=== PATIENT | female | born 1960 | race Caucasian/White ===

== ENCOUNTER 2018-05-03 08:13 | Emergency (ER) | payer OTHER ==
--- OUTSIDE RECORDS SUMMARY | 2018-05-03 08:16 | XMS REPORT | Clinical Summary ---
:1960 Author Organization [facility] Address [address] [place] [address] Care Team Providers Name Role Phone Jordy Rosales MD Primary Care Provider Allergies Active Allergy Reactions Severity Noted Date Comments Iodine 08/17/2017 unknown Current Medications Prescription Sig. Disp. Refills Start Date End Date Status metFORMIN Take 500 mg by 3 07/11/2017 Active (GLUCOPHAGE) 500 mg mouth 2 (two) tablet times a day. lamoTRIgine Take 200 mg by Active (LaMICtal) 200 MG mouth daily. tablet FLUoxetine (PROzac) Take 40 mg by Active 40 MG capsule mouth daily. propranolol Take 10 mg by Active (INDERAL) 10 MG mouth 2 (two) tablet times a day. losartan (COZAAR) 25 Take 25 mg by Active MG tablet mouth daily. atorvastatin Take 10 mg by Active (LIPITOR) 10 MG mouth nightly. tablet levothyroxine Take 75 mcg by Active (SYNTHROID, LEVOXYL) mouth every 75 mcg tablet morning. oxybutynin Take 5 mg by Active (DITROPAN) 5 MG mouth nightly. tablet docusate sodium Take 100 mg by Active (COLACE) 100 MG mouth 2 (two) capsule times a day. glimepiride (AMARYL) Take 0.5 mg by Active 1 MG tablet mouth daily before breakfast. oxybutynin Take 10 mg by Active (DITROPAN) 5 MG mouth every tablet morning. estradiol (ESTRACE) Insert 2 g Active 0.01 % (0.1 mg/gram) into the vaginal cream vagina 3 (three) times a week. No Specific Days acetaminophen Take 2 tablets 08/26/2017 (TYLENOL) 325 MG (650 mg total) 8 tablet by mouth every 6 (six) hours as needed for mild pain for up to 30 days. lamoTRIgine Take 1 tablet 30 tablet 0 08/27/2017 (LaMICtal) 200 MG (200 mg total) 8 tabletIndications: by mouth every Schizoaffective morning for 30 disorder, depressive days. type ([facility]) glimepiride (AMARYL) Take 0.5 15 tablet 0 08/27/2017 1 MG tablets (0.5 8 tabletIndications: mg total) by Type 2 diabetes mouth daily mellitus without with breakfast complication, for 30 days. without long-term current use of insulin ([facility]) atorvastatin Take 1 tablet 30 tablet 0 08/26/2017 (LIPITOR) 10 MG (10 mg total) 8 tabletIndications: by mouth Type 2 diabetes nightly for 30 mellitus without days. complication, without long-term current use of insulin ([facility]) losartan (COZAAR) 25 Take 1 tablet 30 tablet 0 08/27/2017 MG (25 mg total) 8 tabletIndications: by mouth daily Hypertension, for 30 days. unspecified type benztropine Take 1 tablet 60 tablet 0 08/26/2017 (COGENTIN) 1 MG (1 mg total) 8 tabletIndications: by mouth 2 Schizoaffective (two) times a disorder, depressive day for 30 type (HCC) days. lurasidone (LATUDA) Take 20 mg by 600 mg 0 08/26/2017 20 mg mouth every 8 tabletIndications: evening for 30 Schizoaffective days. disorder, depressive type ([facility]) haloperidol (HALDOL) Take 1 tablet 30 tablet 0 08/26/2017 10 MG (10 mg total) 8 tabletIndications: by mouth Schizoaffective nightly for 30 disorder, depressive days. type ([facility]) haloperidol (HALDOL) Take 1 tablet 08/26/2017 2 MG tablet (2 mg total) 8 by mouth 2 (two) times a day as needed for agitation for up to 30 days. propranolol Take 1 tablet 60 tablet 0 08/26/2017 (INDERAL) 10 MG (10 mg total) 8 tabletIndications: by mouth 2 Schizoaffective (two) times a disorder, depressive day for 30 type (HCC) days. dexamethasone Take 1 tablet 5 tablet 0 08/27/2017 (DECADRON) 1 MG (1 mg total) 8 tablet by mouth daily for 5 days. insulin lispro Inject 0-7 10 mL 12 08/26/2017 (HumaLOG) 100 Units under 8 unit/mL injection the skin 3 (three) times a day with meals for 30 days. pantoprazole 4 mg/mL Infuse 10 mL 08/27/2017 in sodium chloride (40 mg total) 8 injection into a venous catheter daily before breakfast for 5 days. FLUoxetine (PROzac) Take 1 capsule 30 capsule 0 08/27/2017 20 MG (20 mg total) 8 capsuleIndications: by mouth every Schizoaffective morning for 30 disorder, depressive days. type (HCC) levothyroxine Take 1 tablet 30 tablet 0 08/27/2017 (SYNTHROID, LEVOXYL) (75 mcg total) 8 75 mcg by mouth daily tabletIndications: for 30 days. Hypothyroidism, unspecified type oxybutynin XL Take 1 tablet 30 tablet 0 08/27/2017 (DITROPAN-XL) 10 MG (10 mg total) 8 24 hr by mouth every tabletIndications: morning for 30 Urge incontinence of days. urine oxybutynin XL Take 1 tablet 30 tablet 0 08/26/2017 (DITROPAN-XL) 5 MG (5 mg total) 8 24 hr by mouth tabletIndications: nightly for 30 Urge incontinence of days. urine lurasidone (LATUDA) Take 20 mg by Discontinued 20 mg tablet mouth every 8 evening. haloperidol (HALDOL) Take 10 mg by Discontinued 10 MG tablet mouth every 8 evening. benztropine Take 2 mg by Discontinued (COGENTIN) 2 MG mouth 2 (two) 8 tablet times a day. GLIMEPIRIDE ORAL Take 0.5 mg by Discontinued mouth daily. 8 ibuprofen (ADVIL) Take 100 mg by Discontinued 100 MG tablet mouth every 6 8 (six) hours as needed for mild pain. baclofen (LIORESAL) Take 10 mg by Discontinued 10 MG tablet mouth 2 (two) 8 times a day. haloperidol (HALDOL) Take 4 mg by Discontinued 2 MG tablet mouth every 8 morning. haloperidol (HALDOL) Take 2 mg by Discontinued 2 MG tablet mouth as 8 needed for agitation. sulfamethoxazole-tri Take 1 tablet 6 tablet 0 11/19/2017 methoprim (BACTRIM by mouth 2 8 DS) 800-160 mg per (two) times a tablet day for 3 days. haloperidol (HALDOL) Take 4 mg by Discontinued 2 MG tablet mouth every 8 morning. haloperidol (HALDOL) Take 10 mg by Discontinued 10 MG tablet mouth nightly. 8 acetaminophen Take 2 tablets 12/06/2017 (TYLENOL) 325 MG (650 mg total) 8 tablet by mouth every 6 (six) hours as needed (pain) for up to 30 days. ARIPiprazole Take 1 tablet 60 tablet 0 12/06/2017 (ABILIFY) 10 MG (10 mg total) 8 tablet by mouth 2 (two) times a day for 30 days. acetaminophen-codein Take 1 tablet 12/06/2017 Discontinued e (TYLENOL WITH by mouth every 8 CODEINE #3) 300-30 4 (four) hours mg per tablet as needed (pain) for up to 14 days. cyclobenzaprine Take 1 tablet 12/06/2017 Discontinued (FLEXERIL) 5 mg (5 mg total) 8 tablet by mouth 3 (three) times a day as needed for muscle spasms for up to 14 days. levoFLOXacin Take 1 tablet 12/06/2017 Discontinued (LEVAQUIN) 500 MG (500 mg total) 8 tablet by mouth daily for 7 days. acetaminophen-codein Take 1 tablet 50 tablet 0 12/06/2017 e (TYLENOL WITH by mouth every 8 CODEINE #3) 300-30 4 (four) hours mg per tablet as needed (pain) for up to 14 days. levoFLOXacin Take 1 tablet 7 tablet 0 12/06/2017 (LEVAQUIN) 500 MG (500 mg total) 8 tablet by mouth daily for 7 days. cyclobenzaprine Take 1 tablet 40 tablet 0 12/06/2017 (FLEXERIL) 5 mg (5 mg total) 8 tablet by mouth 3 (three) times a day as needed for muscle spasms for up to 14 days. keTOROlac (TORadol) Take 1 tablet 20 tablet 0 03/20/2018 10 mg tablet (10 mg total) 8 by mouth every 6 (six) hours as needed for moderate pain for up to 5 days. dicyclomine (BENTYL) Take 1 tablet 60 tablet 0 03/20/2018 20 mg tablet (20 mg total) 8 by mouth 2 (two) times a day for 30 days. sennosides-docusate Take 1 tablet 30 tablet 0 03/20/2018 sodium (SENOKOT-S) by mouth daily 8 8.6-50 mg per tablet for 30 days. magnesium citrate Take 1 Bottle 296 mL 0 03/20/2018 solution (296 mL total) 8 by mouth once for 1 dose. Active Problems Problem Noted Date Cervical radiculopathy 12/03/2017 Altered mental status 11/19/2017 Sepsis (HCC) 11/18/2017 Central cord syndrome (HCC) 11/13/2017 Nasal bone fracture 08/19/2017 Injury of cervical spine ([facility]) 08/19/2017 Head injury 08/17/2017 Schizophrenia ([facility]) 08/17/2017 Hyponatremia 08/17/2017 Increased anion gap metabolic acidosis 08/17/2017 Leucocytosis 08/17/2017 Weakness of both upper extremities 08/17/2017 Hypoalbuminemia 08/17/2017 Encounters Date Type Specialty Care Team Description 03/28/2018 Office Visit Orthopedic Surgery Kofi, Adhesive capsulitis Italo Meek MD of right shoulder (Primary Dx) 03/27/2018 Orders Only Orthopedic Surgery Brandno, Right shoulder pain, Nickarr unspecified chronicity (Primary Dx) 03/19/2018 Emergency Emergency Medicine NNAMDI Williamson abdominal pain ( Primary Dx); - Miguel Rice, Drug-induced constipation; 03/20/2018 DO Calculus of gallbladder without cholecystitis without obstruction 01/06/2018 Office Visit Neurosurgery Chris Cabrera, Central cord MD syndrome, subsequent encounter (Primary Dx) 01/06/2018 Hospital Encounter Radiology Chris Cabrera, Cervical MD radiculopathy 12/20/2017 Transcribe Orders Neurosurgery Leufroy-Deandre, Cervical Dorothy, [place] radiculopathy (Primary Dx) 12/03/2017 Hospital Encounter Neurosurgery Chris Cabrera, Depression, unspecified depression type (Primary Dx); - Cervical radiculopathy 12/06/2017 12/03/2017 Anesthesia Event General Surgery Naye Leonard MD 12/03/2017 Procedure Pass General Surgery 12/03/2017 Surgery General Surgery Chris Cabrera, C3-C7 POSTERIOR MD LAMINOPLASTY 11/18/2017 Hospital Encounter Critical Care Zohaib Landeros Sepsis, due to unspecified organism (Primary Dx); - Soco Santiago MD Sepsis due to Escherichia coli 11/19/2017 Nayeli Rodriguez MD 11/13/2017 Pre-Admit Testing Pre-Admission Chris Cabrera, Preop testing Appointment Testing (Primary Dx) 11/13/2017 Hospital Encounter Radiology Chris Cabrera, Preop testing 11/13/2017 Office Visit Neurosurgery Chris Cabrera, Central cord MD syndrome, subsequent encounter (Primary Dx) 11/13/2017 Hospital Encounter Radiology Chris Cabrera Cervical radiculopathy 11/13/2017 Anesthesia Event Pre-Admission Kathy Saravia Testing [facility] 11/07/2017 Transcribe Orders Neurosurgery Leufroy-Deandre, Cervical Dorothy, [place] radiculopathy (Primary Dx) 10/02/2017 Office Visit Neurosurgery Chris Cabrera, Central cord MD syndrome, subsequent encounter (Primary Dx) 08/17/2017 Hospital Encounter General Internal Zohaib Landeros Injury of head , initial encounter (Primary Dx); - Soco Santaigo MD Fall, initial encounter; 08/26/2017 Luly Mandel Acute hyponatremia; MD Fantasma Intracranial bleed; Mai York Schizoaffective disorder, depressive type; MD Collette Type 2 diabetes mellitus without complication, without long-term current use of insulin; Hypertension, unspecified type; Hypothyroidism, unspecified type; Urge incontinence of urine; Schizophrenia, unspecified type 08/17/2017 Procedure Pass General Internal Medicine 08/17/2017 Procedure Pass General Internal Medicine after 05/02/2017 Immunizations Name Dates Previously Given Next Due FLUCELVAX QUAD PF (0.5mL syringe) 08/26/2017 Pneumococcal Conjugate 13-Valent 08/26/2017 Family History Medical History Relation Name Comments Cancer Father Logan Rivera Testicular cancer Cancer Mother Gisela Rivera Lymphoma Diabetes Mother Gisela Rivera Cancer Other DIABETES, HEART PROBLEMS, THYROID TOO LITTLE Relation Name Status Comments Father Logan Rivera Mother Gisela Rivera Other Other Social History Tobacco Use Types Packs/Day Years Used Date Light Tobacco Smoker Cigarettes 0.25 0.5 Started: 03/21/2018 Smokeless Tobacco: Never Used Alcohol Use Drinks/Week oz/Week Comments Yes 1 Standard drinks or equivalent Very occasional Sex Assigned at Date Recorded Not on file Last Filed Vital Signs Vital Sign Reading Time Taken Blood Pressure 120/87 03/20/2018 1:22 AM CDT Pulse 78 03/28/2018 10:30 AM CDT Temperature 36.9 C (98.5 F) 03/19/2018 7:49 PM CDT Respiratory Rate 16 03/20/2018 1:22 AM CDT Oxygen Saturation 100% 03/20/2018 1:22 AM CDT Inhaled Oxygen Concentration - - Weight 65.8 kg (145 lb) 03/28/2018 10:30 AM CDT Height 167.6 cm (5' 6") 03/28/2018 10:30 AM CDT Body Mass Index 23.4 03/28/2018 10:30 AM CDT Plan of Treatment Health Maintenance Due Date Last Done Comments DIABETIC FOOT EXAM 1970 DIABETIC RETINAL EYE EXAM 1970 URINE MICROALBUMIN 1970 CERVICAL CANCER SCREENING 1981 BREAST CANCER SCREENING 2010 COLON CANCER SCREENING 2010 SHINGRIX VACCINE (#1) 2010 INFLUENZA VACCINE 02/26/2018 08/26/2017 Implants Implanted Type Area Suppository Molding Machine Operator Device Expiration Model / Identifier Date Serial / Lot 3mm Drill Shaft Accessories N/A: [employer] [id number] / Implanted: Qty: 1 on 12/03/2017 by Chris Cabrera MD N/A / Leverage Lfs 2.6mm X 8mm Lateral Mass Screw - [id number] IMPLANT N/A: [employer] SPINE [id number] / Implanted: Qty: 6 on 12/03/2017 by Chris Cabrera MD DEVICES N/A / Leverage Lfs 8mm Small Traditional Plate (M-L) - [id number] [id number] IMPLANT N/A: [employer] 07/09/2020 [id number] / Implanted: Qty: 1 on 12/03/2017 by Chris Cabrera MD DEVICES N/A / 1001 Leverage Lfs 8mm Large Laminar Plate (C-C) - [id number] [id number] IMPLANT N/A: [employer] SPINE 07/09/2020 [id number] / Implanted: Qty: 1 on 12/03/2017 by Chris Cabrera MD DEVICES N/A / 1001 Screw Spinal Lmnr 3x5mm Leverage Lfs - [id number] Spinal N/A: [employer] [id number] / Implanted: Qty: 1 on 12/03/2017 by Chris Cabrera MD Implants N/A / Screw Spinal Lmnr 2.6x5mm Leverage Lfs - [id number] Spinal N/A: [employer] [id number] / Implanted: Qty: 4 on 12/03/2017 by Chris Cabrera MD Implants N/A / Plate Spinal Trdtnl Sm 8mm Leverage Lfs - [id number] Spinal N/A: [employer] 07/09/2020 [id number] / Implanted: Qty: 3 on 12/03/2017 by Chris Cabrera MD Implants N/A / 1001 Procedures Procedure Name Priority Date/Time Associated Diagnosis Comments XR SHOULDER 2+ VW Routine 03/28/2018 10:04 Right shoulder pain, Results for this RIGHT AM CDT unspecified procedure are in chronicity the results section. CT ARTHROCENTESIS Routine 03/28/2018 10:00 Adhesive capsulitis Results for this ASPIR&/INJ MAJOR AM CDT of right shoulder procedure are in JT/BURSA W/O US the results section. ECG 12-LEAD STAT 03/20/2018 12:46 Results for this AM CDT procedure are in the results section. CT RENAL STONE STAT 03/20/2018 12:13 Results for this PROTOCOL AM CDT procedure are in the results section. US GALLBLADDER STAT 03/19/2018 11:05 Results for this PM CDT procedure are in the results section. ZZESTIMATED GFR STAT 03/19/2018 8:38 Results for this PM CDT procedure are in the results section. B NATRIURETIC PEPTIDE STAT 03/19/2018 8:38 Results for this PM CDT procedure are in the results section. TROPONIN STAT 03/19/2018 8:38 Results for this PM CDT procedure are in the results section. CREATINE KINASE, TOTAL STAT 03/19/2018 8:38 Results for this (CPK) PM CDT procedure are in the results section. LIPASE LEVEL STAT 03/19/2018 8:38 Results for this PM CDT procedure are in the results section. COMPREHENSIVE STAT 03/19/2018 8:38 Results for this METABOLIC PANEL PM CDT procedure are in the results section. HC COMPLETE BLD COUNT STAT 03/19/2018 8:38 Results for this W/AUTO DIFF PM CDT procedure are in the results section. XR CERVICAL SPINE 2 OR Routine 01/06/2018 2:50 Cervical Results for this 3 VW PM CDT radiculopathy procedure are in the results section. XR CHEST 1 VW PORTABLE STAT 12/05/2017 8:18 Results for this AM CDT procedure are in the results section. URINALYSIS SCREEN AND STAT 12/05/2017 4:26 Results for this MICROSCOPY, WITH AM CDT procedure are in REFLEX TO CULTURE the results section. URINE CULTURE STAT 12/05/2017 4:26 Results for this AM CDT procedure are in the results section. ECG 12-LEAD Routine 12/04/2017 9:32 Results for this PM CDT procedure are in the results section. POC GLUCOSE Routine 12/04/2017 11:49 Results for this AM CDT procedure are in the results section. POC GLUCOSE Routine 12/04/2017 8:10 Results for this AM CDT procedure are in the results section. HC COMPLETE BLD COUNT Routine 12/04/2017 3:41 Results for this W/AUTO DIFF AM CDT procedure are in the results section. ZZESTIMATED GFR Routine 12/04/2017 12:00 Results for this AM CDT procedure are in the results section. BASIC METABOLIC PANEL Routine 12/04/2017 12:00 Results for this AM CDT procedure are in the results section. POC GLUCOSE Routine 12/03/2017 9:20 Results for this PM CDT procedure are in the results section. SURGICAL PATHOLOGY Routine 12/03/2017 1:17 Results for this REQUEST PM CDT procedure are in the results section. POC GLUCOSE Routine 12/03/2017 11:23 Results for this AM CDT procedure are in the results section. OR FL < 1 HOUR Routine 12/03/2017 10:20 Results for this AM CDT procedure are in the results section. XR CERVICAL SPINE 1 VW Routine 12/03/2017 8:30 Results for this AM CDT procedure are in the results section. CT AN ELECTIVE Routine 12/03/2017 7:53 ENDOTRACHEAL AIRWAY AM CDT Procedure Note - Adam Villar - 12/03/2017 7:53 AM CDT Airway Performed by: ADAM VILLAR Authorized by: NAYE LEONARD Location: OR Urgency: Elective Difficult Airway: No Resident/METAL PLATER/AA: ADAM VILLAR Performed by: resident/METAL PLATER/AA Preoxygenated with 100% O2: Yes C-spine Precautions Maintained Throughout: Yes Mask Ventilation: Easy mask Final Airway Type: Endotracheal airway Final Endotracheal Airway: ETT Cuffed: Yes Technique Used: Video laryngoscopy Devices/Methods Used in Placement: Intubating stylet Insertion Site: Oral Blade Type: Arlene Laryngoscope Blade/Videolaryngoscope Blade Size: 3 ETT Size (mm): 7.0 Cuff at minimum occlusion pressure: Yes Measured from: Lips ETT to Lips (cm): 20 Placement Verified by: CO2 detection, direct visualization and equal breath sounds Laryngoscopic view: Grade I - full view of glottis Rapid Sequence Induction (RSI): No Modified RSI: No Number of Attempts at Approach: 1 Neutral spine maintained throughout induction and intubation ARTERIAL LINE Routine 12/03/2017 7:31 AM CDT Procedure Note - Adam Villar - 12/03/2017 7:31 AM CDT Arterial line Performed by: ADAM VILLAR Authorized by: ADAM VILLAR Patient Location: OR Start Time: 12/03/2017 7:25 AM End Time: 12/03/2017 7:27 AM Staff: Anesthesiologist: NAYE LEONARD Pre-procedure: patient identified, IV checked, site and side verified, risks and benefits discussed, procedure verified, surgical consent complete, patient position confirmed, monitors and equipment checked and pre-op evaluation complete MSBT: antiseptic used and hand hygiene performed TIme Out Performed: 12/03/2017 7:18 AM Indications: Indications: hemodynamic monitoring Anesthesia: Anesthesia: General Procedure Details: Arterial Line placement: Placed post induction Line placement site: Radial Line placement side: Right Arterial line gauge: 20 G Number of attempts: 1 Ultrasound guidance used: No Post-procedure: Post-procedure: Sterile dressing applied Post procedure circulation, sensation, movement: Unchanged Patient tolerance: Patient tolerated the procedure well with no immediate complications LAMINECTOMY, CERVICAL, POSTERIOR 12/03/2017 7:15 AM CDT Cervical radiculopathy APPROACH Case Notes REQ 0715 START; EST 2HRS, ÁNGEL TABLE, STEALTH S7 OARM, NUVASIVE LAMINOPLASTY Special Needs REQ 0715 START; EST 2HRS, ÁNGEL TABLE, STEALTH S7 O-ARM, NUVASIVE LAMINOPLASTY POC GLUCOSE Routine 12/03/2017 6:58 Results for this AM CDT procedure are in the results section. PARATHYROID HORMONE STAT 12/03/2017 6:50 Results for this AM CDT procedure are in the results section. TYPE AND SCREEN STAT 12/03/2017 6:50 Results for this AM CDT procedure are in the results section. POC GLUCOSE Routine 11/19/2017 4:52 Results for this PM CDT procedure are in the results section. POC GLUCOSE Routine 11/19/2017 8:47 Results for this AM CDT procedure are in the results section. ZZESTIMATED GFR Routine 11/19/2017 4:00 Results for this AM CDT procedure are in the results section. IONIZED CALCIUM Routine 11/19/2017 4:00 Results for this AM CDT procedure are in the results section. BASIC METABOLIC PANEL Routine 11/19/2017 4:00 Results for this AM CDT procedure are in the results section. HC COMPLETE BLD COUNT Routine 11/19/2017 4:00 Results for this W/AUTO DIFF AM CDT procedure are in the results section. POC GLUCOSE Routine 11/18/2017 10:56 Results for this PM CDT procedure are in the results section. POC GLUCOSE Routine 11/18/2017 7:46 Results for this PM CDT procedure are in the results section. CONSULT TO SEPSIS Routine 11/18/2017 4:13 Sepsis due to Results for this RESPONSE TEAM PM CDT Escherichia coli procedure are in the results section. ZZESTIMATED GFR Routine 11/18/2017 4:07 Results for this PM CDT procedure are in the results section. BASIC METABOLIC PANEL Routine 11/18/2017 4:07 Results for this PM CDT procedure are in the results section. EEG AWAKE/DROWSY LESS Routine 11/18/2017 12:45 Results for this THAN 41 MIN PM CDT procedure are in the results section. RESPIRATORY PATHOGEN Routine 11/18/2017 12:32 Results for this PANEL PM CDT procedure are in the results section. BETA HYDROXYBUTYRATE Routine 11/18/2017 11:39 Results for this AM CDT procedure are in the results section. VITAMIN D 25 HYDROXY Routine 11/18/2017 11:39 Results for this LEVEL AM CDT procedure are in the results section. FOLATE LEVEL Routine 11/18/2017 11:39 Results for this AM CDT procedure are in the results section. HIV 1, 2 ANTIBODY Routine 11/18/2017 11:39 Results for this AM CDT procedure are in the results section. VITAMIN B1 LEVEL, WHOLE Routine 11/18/2017 11:39 Results for this BLOOD AM CDT procedure are in the results section. VITAMIN B12 LEVEL Routine 11/18/2017 11:39 Results for this AM CDT procedure are in the results section. BASIC METABOLIC PANEL Routine 11/18/2017 10:30 Results for this AM CDT procedure are in the results section. ZZESTIMATED GFR Routine 11/18/2017 10:30 Results for this AM CDT procedure are in the results section. CREATINE KINASE, TOTAL Routine 11/18/2017 10:30 Results for this (CPK) AM CDT procedure are in the results section. TROPONIN Timed 11/18/2017 10:09 Results for this AM CDT procedure are in the results section. LACTIC ACID LEVEL, Timed 11/18/2017 10:09 Results for this SEPSIS - NOW AND REPEAT AM CDT procedure are in 2X EVERY 3 HOURS the results section. ARTERIAL BLOOD GAS STAT 11/18/2017 10:09 Results for this AM CDT procedure are in the results section. CT HEAD WO CONTRAST STAT 11/18/2017 9:26 Results for this AM CDT procedure are in the results section. XR ABDOMEN 1 VW STAT 11/18/2017 8:54 Results for this AM CDT procedure are in the results section. URINALYSIS SCREEN AND STAT 11/18/2017 8:26 Results for this MICROSCOPY, WITH REFLEX AM CDT procedure are in TO CULTURE the results section. URINE DRUGS OF ABUSE STAT 11/18/2017 8:26 Results for this SCREEN AM CDT procedure are in the results section. GRAM STAIN STAT 11/18/2017 8:26 Results for this AM CDT procedure are in the results section. URINE CULTURE STAT 11/18/2017 8:26 Results for this AM CDT procedure are in the results section. BLOOD CULTURE, AEROBIC Routine 11/18/2017 8:06 Results for this & ANAEROBIC AM CDT procedure are in the results section. BLOOD CULTURE, AEROBIC Routine 11/18/2017 8:06 Results for this & ANAEROBIC AM CDT procedure are in the results section. XR CHEST 1 VW PORTABLE STAT 11/18/2017 7:37 Results for this AM CDT procedure are in the results section. ECG 12-LEAD STAT 11/18/2017 6:48 Results for this AM CDT procedure are in the results section. CT CRITICAL CARE, E/M Routine 11/18/2017 6:42 Results for this 30-74 MINUTES AM CDT procedure are in the results section. C-REACTIVE PROTEIN STAT 11/18/2017 6:32 Results for this AM CDT procedure are in the results section. SEDIMENTATION RATE STAT 11/18/2017 6:32 Results for this AM CDT procedure are in the results section. HEMOGLOBIN A1C STAT 11/18/2017 6:32 Results for this AM CDT procedure are in the results section. ZZESTIMATED GFR STAT 11/18/2017 6:32 Results for this AM CDT procedure are in the results section. SALICYLATE LEVEL STAT 11/18/2017 6:32 Results for this AM CDT procedure are in the results section. ACETAMINOPHEN LEVEL STAT 11/18/2017 6:32 Results for this AM CDT procedure are in the results section. ALCOHOL LEVEL, BLOOD STAT 11/18/2017 6:32 Results for this AM CDT procedure are in the results section. T4, FREE STAT 11/18/2017 6:32 Results for this AM CDT procedure are in the results section. THYROID STIMULATING STAT 11/18/2017 6:32 Results for this HORMONE AM CDT procedure are in the results section. B NATRIURETIC PEPTIDE STAT 11/18/2017 6:32 Results for this AM CDT procedure are in the results section. TROPONIN STAT 11/18/2017 6:32 Results for this AM CDT procedure are in the results section. COMPREHENSIVE METABOLIC STAT 11/18/2017 6:32 Results for this PANEL AM CDT procedure are in the results section. LACTIC ACID LEVEL, STAT 11/18/2017 6:32 Results for this SEPSIS - NOW AND REPEAT AM CDT procedure are in 2X EVERY 3 HOURS the results section. PARTIAL THROMBOPLASTIN STAT 11/18/2017 6:32 Results for this TIME (PTT) AM CDT procedure are in the results section. PROTHROMBIN TIME WITH STAT 11/18/2017 6:32 Results for this INR AM CDT procedure are in the results section. CBC WITH PLATELET AND STAT 11/18/2017 6:32 Results for this DIFFERENTIAL AM CDT procedure are in the results section. POC GLUCOSE Routine 11/18/2017 6:25 Results for this AM CDT procedure are in the results section. XR CHEST 2 VW Routine 11/13/2017 1:31 Preop testing Results for this PM CDT procedure are in the results section. AST (SGOT) Routine 11/13/2017 11:50 Results for this AM CDT procedure are in the results section. BILIRUBIN DIRECT Routine 11/13/2017 11:50 Results for this AM CDT procedure are in the results section. POTASSIUM LEVEL Routine 11/13/2017 11:50 Results for this AM CDT procedure are in the results section. ECG PRE/POST OP Routine 11/13/2017 11:33 Preop testing Results for this AM CDT procedure are in the results section. ZZESTIMATED GFR Routine 11/13/2017 11:27 Results for this AM CDT procedure are in the results section. HEMOGLOBIN A1C Routine 11/13/2017 11:27 Preop testing Results for this AM CDT procedure are in the results section. TYPE AND SCREEN Routine 11/13/2017 11:27 Preop testing Results for this AM CDT procedure are in the results section. VITAMIN D 25 HYDROXY Routine 11/13/2017 11:27 Preop testing Results for this LEVEL AM CDT procedure are in the results section. URINALYSIS SCREEN AND Routine 11/13/2017 11:27 Preop testing Results for this MICROSCOPY, WITH REFLEX AM CDT procedure are in TO CULTURE the results section. HEPATIC FUNCTION PANEL Routine 11/13/2017 11:27 Preop testing Results for this AM CDT procedure are in the results section. PARTIAL THROMBOPLASTIN Routine 11/13/2017 11:27 Preop testing Results for this TIME (PTT) AM CDT procedure are in the results section. PROTHROMBIN TIME WITH Routine 11/13/2017 11:27 Preop testing Results for this INR AM CDT procedure are in the results section. BASIC METABOLIC PANEL Routine 11/13/2017 11:27 Preop testing Results for this AM CDT procedure are in the results section. PHOSPHORUS LEVEL Routine 11/13/2017 11:27 Preop testing Results for this AM CDT procedure are in the results section. MAGNESIUM LEVEL Routine 11/13/2017 11:27 Preop testing Results for this AM CDT procedure are in the results section. GRAM STAIN Routine 11/13/2017 11:27 Results for this AM CDT procedure are in the results section. URINE CULTURE Routine 11/13/2017 11:27 Results for this AM CDT procedure are in the results section. XR CERVICAL SPINE AP Routine 11/13/2017 8:58 Cervical Results for this LATERAL FLEXION AND AM CDT radiculopathy procedure are in EXTENSION the results section. POC GLUCOSE Routine 08/26/2017 4:59 Results for this PM [employer]ER [employer]PER[employer] procedure are in the results section. POC GLUCOSE Routine 08/26/2017 12:19 Results for this PM [employer] DRIER OPERATOR procedure are in the results section. POC GLUCOSE Routine 08/26/2017 8:30 Results for this AM [employer]ER OPER[employer] procedure are in the results section. POC GLUCOSE Routine 08/26/2017 4:59 Results for this AM [employer]RIER OPER[employer] procedure are in the results section. HC COMPLETE BLD COUNT Routine 08/26/2017 4:50 Results for this W/AUTO DIFF AM [employer]ER OPER[employer] procedure are in the results section. ZZESTIMATED GFR Routine 08/26/2017 4:00 Results for this AM [employer]ER OPER[employer] procedure are in the results section. BASIC METABOLIC PANEL Routine 08/26/2017 4:00 Results for this AM [employer]ER OPER[employer] procedure are in the results section. POC GLUCOSE Routine 08/26/2017 1:02 Results for this AM [employer]RIER OPER[employer] procedure are in the results section. POC GLUCOSE Routine 08/25/2017 9:24 Results for this PM [employer] DRIER OPERATOR procedure are in the results section. POC GLUCOSE Routine 08/25/2017 5:30 Results for this PM [employer] DRIER OPERATOR procedure are in the results section. POC GLUCOSE Routine 08/25/2017 12:24 Results for this PM [employer] DRIER OPERATOR procedure are in the results section. POC GLUCOSE Routine 08/25/2017 10:06 Results for this AM [employer]RIER OPER[employer] procedure are in the results section. POC GLUCOSE Routine 08/25/2017 8:38 Results for this AM [employer] DRIER OPER[employer] procedure are in the results section. HC COMPLETE BLD COUNT Routine 08/25/2017 5:00 Results for this W/AUTO DIFF AM [employer]ER OPERATOR procedure are in the results section. ZZESTIMATED GFR Routine 08/25/2017 4:00 Results for this AM [employer] DRIER OPER[employer] procedure are in the results section. BASIC METABOLIC PANEL Routine 08/25/2017 4:00 Results for this AM [employer]RIER OPER[employer] procedure are in the results section. POC GLUCOSE Routine 08/24/2017 7:02 Results for this PM [employer]ER OPER[employer] procedure are in the results section. POC GLUCOSE Routine 08/24/2017 5:18 Results for this PM [employer] DRIER OPERATOR procedure are in the results section. POC GLUCOSE Routine 08/24/2017 11:41 Results for this AM [employer] DRIER OPERATOR procedure are in the results section. POC GLUCOSE Routine 08/24/2017 7:38 Results for this AM [employer] DRIER OPERATOR procedure are in the results section. ZZESTIMATED GFR Routine 08/24/2017 4:05 Results for this AM [employer] DRIER OPERATOR procedure are in the results section. HC COMPLETE BLD COUNT Routine 08/24/2017 4:05 Results for this W/AUTO DIFF AM [employer] D[employer]ER OPERATOR procedure are in the results section. BASIC METABOLIC PANEL Routine 08/24/2017 4:05 Results for this AM [employer]ER OPER[employer] procedure are in the results section. POC GLUCOSE Routine 08/23/2017 8:56 Results for this PM [employer]RIER OPERATOR procedure are in the results section. POC GLUCOSE Routine 08/23/2017 5:37 Results for this PM [employer] DRIER OPERATOR procedure are in the results section. POC GLUCOSE Routine 08/23/2017 1:17 Results for this PM [employer] DRIER OPERATOR procedure are in the results section. POC GLUCOSE Routine 08/23/2017 9:37 Results for this AM [employer] DRIER OPERATOR procedure are in the results section. ZZESTIMATED GFR Routine 08/23/2017 5:13 Results for this AM [employer] DRIER OPERATOR procedure are in the results section. BASIC METABOLIC PANEL Routine 08/23/2017 5:13 Results for this AM [employer] DRIER OPER[employer] procedure are in the results section. HC COMPLETE BLD COUNT Routine 08/23/2017 5:13 Results for this W/AUTO DIFF AM [employer] DRIER OPERATOR procedure are in the results section. POC GLUCOSE Routine 08/22/2017 8:24 Results for this PM [employer] DRIER OPERATOR procedure are in the results section. POC GLUCOSE Routine 08/22/2017 4:53 Results for this PM [employer] DRIER OPERATOR procedure are in the results section. POC GLUCOSE Routine 08/22/2017 12:57 Results for this PM [employer]ACUUM DRIER OPERATOR procedure are in the results section. POC GLUCOSE Routine 08/22/2017 8:01 Results for this AM [employer] DRIER OPERATOR procedure are in the results section. POC GLUCOSE Routine 08/22/2017 6:05 Results for this AM [employer] DRIER OPERATOR procedure are in the results section. HC COMPLETE BLD COUNT Routine 08/22/2017 5:05 Results for this W/AUTO DIFF AM [employer] DRIER OPERATOR procedure are in the results section. ZZESTIMATED GFR Routine 08/22/2017 4:00 Results for this AM [employer] DRIER OPERATOR procedure are in the results section. BASIC METABOLIC PANEL Routine 08/22/2017 4:00 Results for this AM [employer]RIER OPERATOR procedure are in the results section. POC GLUCOSE Routine 08/21/2017 8:57 Results for this PM [employer]RIER OPERATOR procedure are in the results section. POC GLUCOSE Routine 08/21/2017 6:11 Results for this PM [employer] DRIER OPERATOR procedure are in the results section. POC GLUCOSE Routine 08/21/2017 1:29 Results for this PM [employer] DRIER OPERATOR procedure are in the results section. CT MAXILLOFACIAL WO Routine 08/21/2017 1:06 Results for this CONTRAST PM [employer]ER OPERATOR procedure are in the results section. POC GLUCOSE Routine 08/21/2017 8:13 Results for this AM [employer] DRIER OPERATOR procedure are in the results section. HC COMPLETE BLD COUNT Routine 08/21/2017 4:49 Results for this W/AUTO DIFF AM [employer] DRIER OPERATOR procedure are in the results section. ZZESTIMATED GFR Routine 08/21/2017 4:00 Results for this AM [employer] DRIER OPERATOR procedure are in the results section. BASIC METABOLIC PANEL Routine 08/21/2017 4:00 Results for this AM [employer]RIER OPERATOR procedure are in the results section. POC GLUCOSE Routine 08/20/2017 9:59 Results for this PM [employer] DRIER OPERATOR procedure are in the results section. POC GLUCOSE Routine 08/20/2017 5:13 Results for this PM [employer] DRIER OPERATOR procedure are in the results section. POC GLUCOSE Routine 08/20/2017 11:33 Results for this AM [employer] DRIER OPERATOR procedure are in the results section. POC GLUCOSE Routine 08/20/2017 9:35 Results for this AM [employer] DRIER OPERATOR procedure are in the results section. HC COMPLETE BLD COUNT Routine 08/20/2017 4:25 Results for this W/AUTO DIFF AM [employer] DRIER OPERATOR procedure are in the results section. ZZESTIMATED GFR Routine 08/20/2017 4:00 Results for this AM [employer] DRIER OPERATOR procedure are in the results section. BASIC METABOLIC PANEL Routine 08/20/2017 4:00 Results for this AM [employer] DRIER OPERATOR procedure are in the results section. POC GLUCOSE Routine 08/19/2017 10:51 Results for this PM [employer] DRIER OPERATOR procedure are in the results section. XR CERVICAL SPINE 1 VW Routine 08/19/2017 8:58 Results for this PM [employer]RIER OPERATOR procedure are in the results section. POC GLUCOSE Routine 08/19/2017 5:51 Results for this PM [employer] DRIER OPERATOR procedure are in the results section. OSMOLALITY, URINE Routine 08/19/2017 4:29 Results for this PM [employer] DRIER OPERATOR procedure are in the results section. CREATININE LEVEL, Routine 08/19/2017 4:29 Results for this URINE, RANDOM PM [employer] DRIER OPERATOR procedure are in the results section. SODIUM LEVEL, URINE, Routine 08/19/2017 4:29 Results for this RANDOM PM [employer] DRIER OPERATOR procedure are in the results section. POC GLUCOSE Routine 08/19/2017 12:15 Results for this PM [employer] DRIER OPERATOR procedure are in the results section. CT CRITICAL CARE, E/M Routine 08/19/2017 7:16 Results for this 30-74 MINUTES AM [employer] D[employer]ER OPERATOR procedure are in the results section. HC COMPLETE BLD COUNT Routine 08/19/2017 4:58 Results for this W/AUTO DIFF AM [employer] DRIER OPERATOR procedure are in the results section. ZZESTIMATED GFR Routine 08/19/2017 4:00 Results for this AM [employer] DRIER OPERATOR procedure are in the results section. BASIC METABOLIC PANEL Routine 08/19/2017 4:00 Results for this AM [employer]RIER OPERATOR procedure are in the results section. MRI CERVICAL SPINE WO STAT 08/18/2017 1:51 Results for this CONTRAST PM [employer] DRIER OPERATOR procedure are in the results section. MRI BRAIN WO CONTRAST Routine 08/18/2017 1:29 Results for this PM [employer] DRIER OPERATOR procedure are in the results section. HC COMPLETE BLD COUNT Routine 08/18/2017 4:55 Results for this W/AUTO DIFF AM [employer] DRIER OPERATOR procedure are in the results section. HEMOGLOBIN A1C Routine 08/18/2017 4:55 Results for this AM [employer] DRIER OPERATOR procedure are in the results section. ZZESTIMATED GFR Routine 08/18/2017 4:00 Results for this AM [employer] DRIER OPERATOR procedure are in the results section. THYROID STIMULATING Routine 08/18/2017 4:00 Results for this HORMONE AM [employer] DRIER OPERATOR procedure are in the results section. BASIC METABOLIC PANEL Routine 08/18/2017 4:00 Results for this AM [employer] DRIER OPERATOR procedure are in the results section. BLOOD CULTURE, AEROBIC Routine 08/18/2017 12:10 Results for this & ANAEROBIC AM [employer] DRIER OPERATOR procedure are in the results section. MAGNESIUM LEVEL STAT 08/18/2017 12:09 Results for this AM [employer] DRIER OPERATOR procedure are in the results section. PHOSPHORUS LEVEL STAT 08/18/2017 12:09 Results for this AM [employer] DRIER OPERATOR procedure are in the results section. LACTIC ACID LEVEL STAT 08/18/2017 12:09 Results for this AM [employer]UUM DRIER OPERATOR procedure are in the results section. XR CHEST 1 VW PORTABLE STAT 08/17/2017 11:44 Results for this PM [employer] DRIER OPERATOR procedure are in the results section. URINALYSIS SCREEN AND Routine 08/17/2017 8:05 Results for this MICROSCOPY, WITH REFLEX PM [employer]UUM DRIER OPERATOR procedure are in TO CULTURE the results section. URINE CULTURE Routine 08/17/2017 8:00 Results for this PM [employer]UUM DRIER OPERATOR procedure are in the results section. BLOOD CULTURE, AEROBIC Routine 08/17/2017 6:25 Results for this & ANAEROBIC PM [employer] DRIER OPERATOR procedure are in the results section. XR SHOULDER 2+ VW LEFT STAT 08/17/2017 5:08 Results for this PM [employer] DRIER OPERATOR procedure are in the results section. XR SHOULDER 2+ VW RIGHT STAT 08/17/2017 5:07 Results for this PM [employer] DRIER OPERATOR procedure are in the results section. CT CERVICAL SPINE WO STAT 08/17/2017 3:35 Results for this CONTRAST PM [employer] DRIER OPERATOR procedure are in the results section. CT HEAD WO CONTRAST STAT 08/17/2017 3:30 Results for this PM [employer]UUM DRIER OPERATOR procedure are in the results section. ZZESTIMATED GFR STAT 08/17/2017 1:20 Results for this PM [employer]UUM DRIER OPERATOR procedure are in the results section. MAGNESIUM LEVEL STAT 08/17/2017 1:20 Results for this PM [employer]ACUUM DRIER OPERATOR procedure are in the results section. PHOSPHORUS LEVEL STAT 08/17/2017 1:20 Results for this PM [employer]UUM DRIER OPERATOR procedure are in the results section. COMPREHENSIVE METABOLIC STAT 08/17/2017 1:20 Results for this PANEL PM V[employer]UUM DRIER OPERATOR procedure are in the results section. HC COMPLETE BLD COUNT STAT 08/17/2017 1:20 Results for this W/AUTO DIFF PM [employer] DRIER OPERATOR procedure are in the results section. ECG 12-LEAD STAT 08/17/2017 12:01 Results for this PM [employer] DRIER OPERATOR procedure are in the results section. after 05/02/2017 Results XR Shoulder 2+ Vw Right (03/28/2018 10:04 AM)Only the most recent of2 resultswithin the time period is included. Narrative Performed At Four views (true AP, axillary, outlet, and Zanca views) of the rightright [facility] shoulder are obtained and reviewed today.The glenohumeral and AC joints appear normal.There is no evidence of dislocation, fracture, or significant degenerative change. No abnormal soft tissue calcifications are seen. Performing Organization Address [facility] Cent[facility]ode Phone Number [facility] [address] [place] [address] Large Joint Arthrocentesis (03/28/2018 10:00 AM) Narrative Performed At Italo Kirby MD 03/28/2018 11:00 AM Large Joint Arthrocentesis Consent given by: patient Site marked: site marked Timeout: Immediately prior to procedure a time out was called to verify the correct patient, procedure, equipment, support director and site/side marked as required Supporting Documentation Indications: pain Procedure Details Preparation: Patient was prepped and draped in the usual sterile fashion Ultrasound guided: no Location: shoulder - R glenohumeral Right side: Needle size: 22 G Approach: posterior Right shoulder medications administered: 80 mg methylPREDNISolone acetate 80 mg/mL; 10 mL lidocaine 10 mg/mL (1 %); 2 mL bupivacaine 0.5 % (5 mg/mL) Patient tolerance: patient tolerated the procedure well with no immediate complications ECG 12 lead (03/20/2018 12:46 AM)Only the most recent of4 resultswithin the time period is included. Ventricular rate 112 [facility] Atrial rate [address] [facility] interval 148 [facility] QRSD interval 80 [facility] QT interval 336 [facility] QTC interval 458 [facility] P axis 1 70 [facility] QRS axis 1 -18 [facility] T wave axis 48 [facility] EKG impression Sinus tachycardia-Minimal voltage criteria for LVH, may be normal variant-Junctional ST depression, probably normal-Borderline ECG-In automated comparison with ECG of 04-DEC-2017 21:32,-No significant c [facility] hange was found- Performing Organization Address [facility] Centercowy Phone Number [facility] M[facility] [address] [place] [address] CT Renal Stone Protocol (03/20/2018 12:13 AM) Narrative Performed At Examination:CT RENAL STONE PROTOCOL [facility] Clinical History: RUQ abd painanemia Comparison: None. Findings: CT scans are performed using radiation dose reduction techniques.Technical factors are evaluated and adjusted to ensure appropriate moderation of exposure.Automated dose management technology is applied to adjust radiation exposure while achieving a diagnostic quality image. CT scan of abdomen and pelvis was performed without intravenous contrast. The liver, spleen, pancreas, and adrenal glands are unremarkable. Gallstones are noted in the gallbladder. No gallbladder wall thickening is seen. The kidneys are within normal limits without hydronephrosis or urinary calculus. Large amount fecal material seen throughout the colon. No bowel thickening or fat stranding is seen. No bowel dilatation is seen. The appendix is not visualized. No free air or fluid is seen. Urinary bladder is unremarkable. Visualized lung bases are clear. IMPRESSION: 1. Large amount fecal material throughout the colon but no evidence for bowel obstruction. This may represent constipation. 2. Otherwise no acute abnormality identified in abdomen or pelvis. [facility]-[id number] Procedure Note Interface, Radiology Results Incoming - 03/20/2018 12:24 AM CDT Examination: CT RENAL STONE PROTOCOL Clinical History: RUQ abd pain anemia Comparison: None. Findings: CT scans are performed using radiation dose reduction techniques. Technical factors are evaluated and adjusted to ensure appropriate moderation of exposure. Automated dose management technology is applied to adjust radiation exposure while achieving a diagnostic quality image. CT scan of abdomen and pelvis was performed without intravenous contrast. The liver, spleen, pancreas, and adrenal glands are unremarkable. Gallstones are noted in the gallbladder. No gallbladder wall thickening is seen. The kidneys are within normal limits without hydronephrosis or urinary calculus. Large amount fecal material seen throughout the colon. No bowel thickening or fat stranding is seen. No bowel dilatation is seen. The appendix is not visualized. No free air or fluid is seen. Urinary bladder is unremarkable. Visualized lung bases are clear. IMPRESSION: 1. Large amount fecal material throughout the colon but no evidence for bowel obstruction. This may represent constipation. 2. Otherwise no acute abnormality identified in abdomen or pelvis. [facility]-[id number] Performing Organization Address City/State/Zipcode Phone Number [facility] [address] [place] [address] US Gallbladder (03/19/2018 11:05 PM) Narrative Performed At Examination:US GALLBLADDER [facility] Clinical History: Cholelithiasis Comparison: None. Findings: Gallbladder ultrasound was performed. Gallstones are noted in the gallbladder. Gallbladder wall is not thickened. The common bile duct measures 0.5 cm The portal vein is patent. The technologist reported a positive sonographic Solo sign. IMPRESSION: 1. Cholelithiasis but without gallbladder wall thickening. The technologist reported a positive sonographic Solo sign. Cholecystitis cannot be excluded. [facility]-[id number] Procedure Note Hm Interface, Radiology Results Incoming - 03/19/2018 11:20 PM CDT Examination: US GALLBLADDER Clinical History: Cholelithiasis Comparison: None. Findings: Gallbladder ultrasound was performed. Gallstones are noted in the gallbladder. Gallbladder wall is not thickened. The common bile duct measures 0.5 cm The portal vein is patent. The technologist reported a positive sonographic Solo sign. IMPRESSION: 1. Cholelithiasis but without gallbladder wall thickening. The technologist reported a positive sonographic Solo sign. Cholecystitis cannot be excluded. [facility]-[id number] Performing Organization Address City/[facility]/Zipcode Phone Number [facility] [address] [place] [address] Estimated GFR (03/19/2018 8:38 PM)Only the most recent of17 resultswithin the time period is included. GFR Non Af Amer 64 mL/min/1.[address] [facility] DEPARTMENT OF PATHOLOGY AND GENOMIC MEDICINE GFR Af Amer 78 mL/min/1.[address] [facility] DEPARTMENT OF Comment: PATHOLOGY AND GENOMIC Chronic kidney disease: <60 mL/min/1.73m2 MEDICINE Kidney failure: <15 mL/min/1.73m2 The estimated GFR is calculated from the IDMS-traceable Modification of Diet in Renal Disease Equation. The accuracy of the calculation is poor when the creatinine is normal. Calculated values >90 mL/min/1.73m2 are not reported. This equation has not been validated in children (<18 years), women, the elderly (>70 years), or ethnic groups other than Caucasians and Americans. Specimen Plasma specimen Performing Organization Address City/State/Zipcode Phone Number [facility] DEPARTMENT OF PATHOLOGY AND [address] [place] [phone] [facility] MEDICINE Troponin (03/19/2018 8:38 PM)Only the most recent of3 resultswithin the time period is included. Troponin <0.30 0.00 - 0.30 ng/mL [facility] DEPARTMENT OF PATHOLOGY Comment: AND GENOMIC MEDICINE 0.30 - 1.49 ng/mlMay indicate increased risk of acute coronary syndrome. >=1.5 ng/mlConsistent with acute myocardial infarction. The diagnostic value of a single normal or non-diagnostic result is questionable.Serial samples at 2-6 hour intervals are required to rule out acute myocardial injury. Specimen Plasma specimen Performing Organization Address City/State/Zipcode Phone Number [facility] DEPARTMENT OF PATHOLOGY AND [address] [place] [address] GENOMIC MEDICINE CBC with platelet and differential (03/19/2018 8:38 PM)Only the most recent of14 resultswithin the time period is included. WBC 11.00 4.50 - 11.00 k/uL [facility] DEPARTMENT OF PATHOLOGY AND GENOMIC MEDICINE RBC 3.35 (L) 4.20 - 5.50 m/uL [facility] DEPARTMENT OF PATHOLOGY AND GENOMIC MEDICINE HGB 8.5 (L) 12.0 - 16.0 g/dL [facility] DEPARTMENT OF PATHOLOGY AND GENOMIC MEDICINE HCT 26.9 (L) 37.0 - 47.0 % [facility] DEPARTMENT OF PATHOLOGY AND GENOMIC MEDICINE MCV 80.3 (L) 82.0 - 100.[address] [facility] DEPARTMENT OF PATHOLOGY AND GENOMIC MEDICINE MCH 25.4 (L) 27.0 - 34.[address] [facility] DEPARTMENT OF PATHOLOGY AND GENOMIC MEDICINE MCHC 31.6 31.0 - 37.0 g/dL [facility] DEPARTMENT OF PATHOLOGY AND GENOMIC MEDICINE RDW - SD 42.6 37.0 - 55.[address] [facility] DEPARTMENT OF PATHOLOGY AND GENOMIC MEDICINE MPV 9.4 8.8 - 13.[address] [facility] DEPARTMENT OF PATHOLOGY AND GENOMIC MEDICINE Platelet count 471 (H) 150 - 400 k/uL [facility] DEPARTMENT OF PATHOLOGY AND GENOMIC MEDICINE Nucleated RBC 0.00 /[address] [facility] DEPARTMENT OF PATHOLOGY AND GENOMIC MEDICINE Neutrophils 61.2 39.0 - 69.0 % [facility] DEPARTMENT OF PATHOLOGY AND GENOMIC MEDICINE Lymphocytes 26.3 25.0 - 45.0 % [facility] DEPARTMENT OF PATHOLOGY AND GENOMIC MEDICINE Monocytes 7.7 0.0 - 10.0 % [facility] DEPARTMENT OF PATHOLOGY AND GENOMIC MEDICINE Eosinophils 3.5 0.0 - 5.0 % [facility] DEPARTMENT OF PATHOLOGY AND GENOMIC MEDICINE Basophils 0.9 0.0 - 1.0 % [facility] DEPARTMENT OF PATHOLOGY AND GENOMIC MEDICINE Immature granulocytes 0.4Comment: 0.0 - 1.0 % [facility] DEPARTMENT OF "Immature PATHOLOGY AND GENOMIC granulocytes" MEDICINE (promyelocytes, myelocytes, metamyelocytes) Specimen Blood Performing Organization Address [facility] Centercode Phone Number [facility] DEPARTMENT OF PATHOLOGY AND [address] [place] [address] B natriuretic peptide (03/19/2018 8:38 PM)Only the most recent of2 resultswithin the time period is included. BNP 28 0 - 100 pg/mL [facility] DEPARTMENT OF PATHOLOGY AND GENOMIC MEDICINE Specimen Blood Performing Organization Address [facility] Phone Number [facility] DEPARTMENT OF PATHOLOGY AND [address] [place] [address] Lipase level (03/19/2018 8:38 PM) Lipase 64 (H) 13 - 60 U/L [facility] DEPARTMENT OF PATHOLOGY AND GENOMIC MEDICINE Specimen Plasma specimen Performing Organization Address [facility] Phone Number [facility] DEPARTMENT OF PATHOLOGY AND [address] [place] [address] Creatine kinase, total (CPK) (03/19/2018 8:38 PM)Only the most recent of2 resultswithin the time period is included. Creatine kinase 61 26 - 192 U/L [facility] DEPARTMENT OF PATHOLOGY AND GENOMIC MEDICINE Specimen Plasma specimen Performing Organization Address [facility] Phone Number [facility] DEPARTMENT OF PATHOLOGY AND [address] [place] [address] Comprehensive metabolic panel (03/19/2018 8:38 PM)Only the most recent of3 resultswithin the time period is included. Sodium 132 (L) 135 - 148 mEq/L [facility] DEPARTMENT OF PATHOLOGY AND GENOMIC MEDICINE Potassium 5.3 (H) 3.5 - 5.0 mEq/L [facility] DEPARTMENT OF PATHOLOGY AND GENOMIC MEDICINE Chloride 97 (L) 98 - 112 mEq/L [facility] DEPARTMENT OF PATHOLOGY AND GENOMIC MEDICINE CO2 21 (L) 24 - 31 mEq/L [facility] DEPARTMENT OF PATHOLOGY AND GENOMIC MEDICINE Anion gap 14@ANIO 7 - 15 mEq/L [facility] DEPARTMENT OF PATHOLOGY AND GENOMIC MEDICINE BUN 25 (H) 6 - 20 mg/dL [facility] DEPARTMENT OF PATHOLOGY AND GENOMIC MEDICINE Creatinine 0.9 0.5 - 0.9 mg/dL [facility] DEPARTMENT OF PATHOLOGY AND GENOMIC MEDICINE Glucose 201 (H) 65 - 99 mg/dL [facility] DEPARTMENT OF PATHOLOGY AND GENOMIC MEDICINE Calcium 9.5 8.3 - 10.2 mg/dL [facility] DEPARTMENT OF PATHOLOGY AND GENOMIC MEDICINE Protein 6.9 6.3 - 8.3 g/dL [facility] DEPARTMENT OF Comment: PATHOLOGY AND GENOMIC 4.6-7.0 g/dL MEDICINE 1 week 4.4-7.6 g/dL 7 months-1year5.1-7.3 g/dL 1-2 years5.6-7.5 g/dL >3 years6.0-8.0 g/dL 18-150 6.3-8.3 g/dL Albumin 3.6 3.5 - 5.0 g/dL [facility] DEPARTMENT OF PATHOLOGY AND GENOMIC MEDICINE A/G ratio 1.1 0.7 - 3.8 [facility] DEPARTMENT OF PATHOLOGY AND GENOMIC MEDICINE Alkaline phosphatase 82 35 - 104 U/L [facility] DEPARTMENT OF PATHOLOGY AND GENOMIC MEDICINE AST 14 10 - 35 U/L [facility] DEPARTMENT OF PATHOLOGY AND GENOMIC MEDICINE ALT 17 5 - 50 U/L [facility] DEPARTMENT OF PATHOLOGY AND GENOMIC MEDICINE Total bilirubin <0.2 0.0 - 1.2 mg/dL [facility] DEPARTMENT OF PATHOLOGY AND GENOMIC MEDICINE Specimen Plasma specimen Performing Organization Address City/State/Zipcode Phone Number [facility] DEPARTMENT OF PATHOLOGY AND [address] [place] [address] [facility] XR Cervical Spine 2 Or 3 Vw (01/06/2018 2:50 PM) Narrative Performed At EXAMINATION: XR CERVICAL SPINE 2 OR 3 VW [facility] CLINICAL HISTORY: Radiculopathy COMPARISON:Cervical spine radiograph 12/03/2017 IMPRESSION: C6 and below are partially obscured by patient's shoulders. Left laminoplasty plates and screws C3-C6. Hardware appears intact. No displaced fracture of the visualized cervical vertebral. No subluxation. Straightening of normal cervical lordosis. Mild degenerative endplate changes C2-C6 with small anterior osteophytes. Prevertebral soft tissue thickness is within normal limits. [id number] Procedure Note Interface, Radiology Results - 01/06/2018 3:30 PM CDT EXAMINATION: XR CERVICAL SPINE 2 OR 3 VW CLINICAL HISTORY: Radiculopathy COMPARISON: Cervical spine radiograph 12/03/2017 IMPRESSION: C6 and below are partially obscured by patient's shoulders. Left laminoplasty plates and screws C3-C6. Hardware appears intact. No displaced fracture of the visualized cervical vertebral. No subluxation. Straightening of normal cervical lordosis. Mild degenerative endplate changes C2 -C6 with small anterior osteophytes. Prevertebral soft tissue thickness is within normal limits. [id number] Performing Organization Address [facility] Phone Number [facility] [address] [place] [address] XR Chest 1 Vw Portable (12/05/2017 8:18 AM)Only the most recent of3 resultswithin the time period is included. Narrative Performed At EXAMINATION: Portable chest x-ray [facility] CLINICAL HISTORY:Fever COMPARISON: Most recent available chest x-ray. The heart is normal in size. Mediastinum is within normal limits. There are degenerative changes in the shoulder joints. IMPRESSION: 1.Mild retrocardiac atelectasis/small focal consolidation. No pleural fluid. 2.No pneumothorax. [id number] Procedure Note Interface, Radiology Results Incoming - 12/05/2017 8:25 AM CDT EXAMINATION: Portable chest x-ray CLINICAL HISTORY: Fever COMPARISON: Most recent available chest x-ray. The heart is normal in size. Mediastinum is within normal limits. There are degenerative changes in the shoulder joints. IMPRESSION: 1. Mild retrocardiac atelectasis/small focal consolidation. No pleural fluid. 2. No pneumothorax. [id number] Performing Organization Address [facility] Phone Number [facility] [address] [place] [address] Urinalysis screen and microscopy, with reflex to culture (12/05/2017 4:26 AM) Only the most recent of4 resultswithin the time period is included. Specimen site Clean catch [facility] DEPARTMENT OF PATHOLOGY AND GENOMIC MEDICINE Color, UA Straw [facility] DEPARTMENT OF PATHOLOGY AND GENOMIC MEDICINE Appearance, UA Clear [facility] DEPARTMENT OF PATHOLOGY AND GENOMIC MEDICINE Specific gravity, UA 1.015 1.001 - 1.035 [facility] DEPARTMENT OF PATHOLOGY AND GENOMIC MEDICINE pH, UA 6.0 5.0 - 8.5 [facility] DEPARTMENT OF PATHOLOGY AND GENOMIC MEDICINE Protein, UA Negative Negative [facility] DEPARTMENT OF PATHOLOGY AND GENOMIC MEDICINE Glucose, UA Negative Negative [facility] DEPARTMENT OF PATHOLOGY AND GENOMIC MEDICINE Ketones, UA Negative Negative [facility] DEPARTMENT OF PATHOLOGY AND GENOMIC MEDICINE Bilirubin, UA Negative Negative [facility] DEPARTMENT OF PATHOLOGY AND GENOMIC MEDICINE Blood, UA Negative Negative [facility] DEPARTMENT OF PATHOLOGY AND GENOMIC MEDICINE Nitrite, UA Negative Negative [facility] DEPARTMENT OF PATHOLOGY AND GENOMIC MEDICINE Urobilinogen, UA <2.[address] [facility] DEPARTMENT OF PATHOLOGY AND GENOMIC MEDICINE Leukocyte esterase, UA Negative Negative [facility] DEPARTMENT OF PATHOLOGY AND GENOMIC MEDICINE Epithelial cells, UA 2 /HPF [facility] DEPARTMENT OF PATHOLOGY AND GENOMIC MEDICINE WBC, UA <1 0 - 4 /HPF [facility] DEPARTMENT OF PATHOLOGY AND GENOMIC MEDICINE RBC, UA 1 0 - 5 /HPF [facility] DEPARTMENT OF PATHOLOGY AND GENOMIC MEDICINE Bacteria, UA None seen None seen [facility] DEPARTMENT OF PATHOLOGY AND GENOMIC MEDICINE Yeast, UA None seen [facility] DEPARTMENT OF PATHOLOGY AND GENOMIC MEDICINE Yeast with pseudohyphae, UA None seen [facility] DEPARTMENT OF PATHOLOGY AND GENOMIC MEDICINE Hyaline casts, UA 3 /LPF [facility] DEPARTMENT OF PATHOLOGY AND GENOMIC MEDICINE Specimen Urine Performing Organization Address City/[facility] Phone Number [facility] DEPARTMENT OF PATHOLOGY AND [address] [place] [address] MEDICINE Urine culture (12/05/2017 4:26 AM)Only the most recent of4 resultswithin the time period is included. Urine culture SEE COMMENTComment: Bacteriuria [facility] DEPARTMENT OF PATHOLOGY screen negative. AND GENOMIC MEDICINE Performing Organization Address City/[facility]/Zipcode Phone Number [facility] DEPARTMENT OF PATHOLOGY AND [address] [place] [address] MEDICINE POC glucose (12/04/2017 11:49 AM)Only the most recent of44 resultswithin the time period is included. POC glucose 146 (H) 65 - 99 mg/dL [facility] DEPARTMENT OF PATHOLOGY AND Comment: GENOMIC MEDICINE No Action Needed [facility] Notified RN Meter ID: [id number] X Ray Technician: Say Salamanca Performing Organization Address City/[facility]/Zipcode Phone Number [facility] DEPARTMENT OF PATHOLOGY AND [address] [place] [address] Basic metabolic panel (12/04/2017)Only the most recent of14 resultswithin the time period is included. Sodium 142 135 - 148 mEq/L [facility] DEPARTMENT OF PATHOLOGY AND GENOMIC MEDICINE Potassium 4.5 3.5 - 5.0 mEq/L [facility] DEPARTMENT OF PATHOLOGY AND GENOMIC MEDICINE Chloride 106 98 - 112 mEq/L [facility] DEPARTMENT OF PATHOLOGY AND GENOMIC MEDICINE CO2 25 24 - 31 mEq/L [facility] DEPARTMENT OF PATHOLOGY AND GENOMIC MEDICINE Anion gap 11 7 - 15 mEq/L [facility] DEPARTMENT OF PATHOLOGY Comment: AND GENOMIC MEDICINE Starting from October , anion gap calculation no longer incorporates potassium. Please note the change. BUN 12 6 - 20 mg/dL [facility] DEPARTMENT OF PATHOLOGY AND GENOMIC MEDICINE Creatinine 0.8 0.5 - 0.9 mg/dL [facility] DEPARTMENT OF PATHOLOGY AND GENOMIC MEDICINE Glucose 83 65 - 99 mg/dL [facility] DEPARTMENT OF PATHOLOGY AND GENOMIC MEDICINE Calcium 9.4 8.3 - 10.2 mg/dL [facility] DEPARTMENT OF PATHOLOGY AND GENOMIC MEDICINE Specimen Plasma specimen Performing Organization Address City/[facility] Phone Number [facility] DEPARTMENT OF PATHOLOGY AND [address] [place] [address] [employer] MEDICINE Surgical pathology request (12/03/2017 1:17 PM) [facility] DEPARTMENT OF PATHOLOGY AND GENOMIC MEDICINE Surgical pathology report See link below for PDF [facility] DEPARTMENT OF Lab Report PATHOLOGY AND GENOMIC MEDICINE Result status This is Final Report to [facility] DEPARTMENT OF [id number] PATHOLOGY AND GENOMIC MEDICINE Performing Organization Address [facility] Phone Number [facility] DEPARTMENT OF PATHOLOGY AND [address] [place] [address] [facility] OR [place] < 1 Hour (12/03/2017 10:20 AM) Narrative Performed At IMPRESSION: C-arm fluoroscopy under one hour was provided in the OR for [facility] the referring physician. A radiologist was not present during the procedure. Refer to the Operative report issued by the performing provider for procedure details. LOCATION: [place] [facility] PROCEDURE:CERVICAL LAMINOPLASTY START:1009 FINISH:1020 FLUORO TIME:2.83 SEC DOSE:17.81 TECH: MA SCANS:1 O-ARM CASE Procedure Note Interface, Radiology Results Incoming - 12/03/2017 3:55 PM CDT IMPRESSION: C-arm fluoroscopy under one hour was provided in the OR for the referring physician. A radiologist was not present during the procedure. Refer to the Operative report issued by the performing provider for procedure details. LOCATION: [place] [facility] PROCEDURE:CERVICAL LAMINOPLASTY START:1009 FINISH:1020 FLUORO TIME:2.83 SEC DOSE:17.81 TECH: MA SCANS:1 O-ARM CASE Performing Organization Address City/[facility]/Zipcode Phone Number [facility] [address] [place] [address] XR Cervical Spine 1 Vw (12/03/2017 8:30 AM)Only the most recent of2 resultswithin the time period is included. Narrative Performed At EXAMINATION: XR CERVICAL SPINE 1 VW [facility] CLINICAL HISTORY: Intraoperative study COMPARISON:Cervical radiographs 11/13/2017 IMPRESSION: Single lateral intraoperative radiograph of the cervical spine demonstrates posterior approach surgical instrumentscentered at the C4 and C5 levels with the superior-most surgical instrument tip projecting over the C4 spinous process. [id number] Procedure Note Interface, Radiology Results Incoming - 12/03/2017 8:36 AM CDT EXAMINATION: XR CERVICAL SPINE 1 VW CLINICAL HISTORY: Intraoperative study COMPARISON: Cervical radiographs 11/13/2017 IMPRESSION: Single lateral intraoperative radiograph of the cervical spine demonstrates posterior approach surgical instruments centered at the C4 and C5 levels with the superior-most surgical instrument tip projecting over the C4 spinous process. [id number] Performing Organization Address [facility] Phone Number [facility] [address] [place] [address] Type and screen (12/03/2017 6:50 AM)Only the most recent of2 resultswithin the time period is included. ABO grouping A [facility] DEPARTMENT OF PATHOLOGY AND GENOMIC MEDICINE Rh type POS [facility] DEPARTMENT OF PATHOLOGY AND GENOMIC MEDICINE Antibody screen (gel) NEG [facility] DEPARTMENT OF PATHOLOGY AND GENOMIC MEDICINE Specimen Blood Performing Organization Address [facility] Phone Number [facility] DEPARTMENT OF PATHOLOGY AND [address] [place] [phone] [facility] Parathyroid hormone (12/03/2017 6:50 AM) PTH 29 15 - 65 pg/mL [facility] DEPARTMENT OF PATHOLOGY AND GENOMIC MEDICINE Specimen Blood Performing Organization Address City/[facility]/Zipcode Phone Number [facility] DEPARTMENT OF PATHOLOGY AND [address] [place] [address] [facility] Ionized calcium (11/19/2017 4:00 AM) pH 7.44 [facility] DEPARTMENT OF PATHOLOGY AND GENOMIC MEDICINE Ionized calcium 1.17 1.11 - 1.32 mmol/L [facility] DEPARTMENT OF PATHOLOGY AND GENOMIC MEDICINE Specimen Plasma specimen Performing Organization Address City/[facility]/Zipcode Phone Number [facility] DEPARTMENT OF PATHOLOGY AND [address] [place] [address] GENOMIC MEDICINE Consult to Sepsis Response Team (11/18/2017 4:13 PM) Narrative Performed At Goyo Honeycutt NP 11/18/20174:22 PM Follow Up Sepsis Note. -No new events. Consult to Sepsis Response Team Performed by: GOYO HONEYCUTT Authorized by: GOYO HONEYCUTT Sepsis Clinical Assessment SIRS Criteria SIRS criteria met: Altered mental status, Heart rate > 90 bpm, Respirations > 20/min and WBC > 12 K/mcL Sepsis Assessment Clinical suspicion of infection? Yes Clinical suspicion of sepsis?: Yes Sepsis staging:Severe sepsis Sepsis protocol started?Yes Clinical disposition:Transfer to IMU Suspected Source of Infection Suspected Source of Infection: UTI Hemodynamic Monitoring Fluid challenge Focus Exam Cardiopulmonary Exam Heart: Regular rate & rhythm and Tachycardia Left Lung: Clear Right Lung: Clear Capillary Refill Capillary refill rate: Brisk, < 3 s Peripheral Pulses Left doralis pedis:Normal Right doralis pedis:Normal Left posterial tibial: Normal Right posterial tibial:Normal Left radial:Normal Right radial:Normal Skin Exam Skin exam: Skin color normal Sepsis Related Vitals Heart rate: 104 Temperature: 98.7 F Respiratory rate: 26 Blood pressure: 144/66 Altered mental status: WBC (k/uL) Date Value 11/18/2017 15.82 (H) 08/26/2017 12.61 (H) Weight-Based Fluid Bolus Calculation The recommended weight-based bolus volume: 1,974 mL (dosing weight) Please refer to the MAR for actual med/fluid administrations. EEG (routine) (11/18/2017 12:45 PM) Narrative Performed At EEG [facility]OW[facility] Date of Service: 11/18/17 Awake Recordings: The occipital dominant rhythm is 5-6 Hz and is poorly sustained. 4-5 Hz and 1.5-3 Hz activity is present in all regions. 18-22 Hz activity was present in all regions. Sleep Recording: No sleep was recorded. Hyperventilation: Was not performed. Photic Stimulation: Was not performed. Impression: The findings are consistent with a diffuse disturbance in brain function. No seizures occurred. ICD-10 Code: R569 Respiratory pathogen panel (11/18/2017 12:32 PM) Respiratory pathogen Positive for Parainfluenza [address] [facility] DEPARTMENT OF panel PATHOLOGY AND GENOMIC Negative for all other pathogens tested: MEDICINE Negative for Adenovirus Negative for Coronavirus HKU1 Negative for Coronavirus NL63 Negative for Coronavirus 229E Negative for Coronavirus OC43 Negative for Human Metapneumovirus Negative for Rhinovirus/Enterovirus Negative for Influenza A Negative for Influenza A/H1 Negative for Influenza A/H3 Negative for Influenza A/H1-2009 Negative for Influenza B Negative for Parainfluenza Virus 1 Negative for Parainfluenza Virus 2 Negative for Parainfluenza Virus 4 Negative for Respiratory Syncytial Virus Negative for Bordetella pertussis Negative for Chlamydophila pneumoniae Negative for Mycoplasma pneumoniae This real-time PCR assay detects the presence of nucleic acids (RNA or DNA) for the respiratory pathogens listed. A result of "Not-detected" does not exclude the possibility of the presence of one or more pathogens at concentrations less than the detectable limits of the assa (A) Comment: Specimen Information Specimen Source: Nares Specimen Site: Right Specimen Nares - Right Performing Organization Address City/State/[facility] Phone Number [facility] DEPARTMENT OF PATHOLOGY AND [address] [place] [address] [employer] [facility] Beta hydroxybutyrate (11/18/2017 11:39 AM) Beta hydroxybutyrate 0.31 (H) 0.02 - 0.27 mmol/L [facility] DEPARTMENT OF PATHOLOGY AND GENOMIC MEDICINE Specimen Serum Performing Organization Address City/[facility] Phone Number [facility] DEPARTMENT OF PATHOLOGY AND [address] [place] [address] Vitamin B1 level, whole blood (11/18/2017 11:39 AM) Vitamin B1 90 70 - 180 nmol/L [facility] Comment: INTERPRETIVE INFORMATION: Vitamin B1, Whole Blood This assay measures the concentration of thiamine diphosphate (TDP), the primary active form of vitamin B1. Approximately 90 percent of vitamin B1 present in whole blood is TDP. Thiamine and thiamine monophosphate, which comprise the remaining 10 percent, are not measured. Test developed and characteristics determined by [facility]. See Compliance Statement B: [email or web address] Performed by [facility], [address] [place] [id number] [email or web address] Patricio MD - Lab. Director Specimen Plasma specimen Performing Organization Address City/State/Zipcode Phone Number [facility] [address] [place] [address] Vitamin D 25 hydroxy level (11/18/2017 11:39 AM)Only the most recent of2 resultswithin the time period is included. Vitamin D, 25-hydroxy 27.1 (L) 30.0 - 150.0 [facility] DEPARTMENT OF Comment: ng/mL PATHOLOGY AND GENOMIC This assay reports the sum of 25-hydroxy vitamin D3 and 25-hydroxy vitamin MEDICINE D2. Reference range: 0-17 years: Deficiency: less than 20ng/mL Optimum level: greater than or equal to 20 ng/mL. 18 years and older: Deficiency: less than 20ng/mL Insufficiency: 20-29 ng/mL Optimum Level: 30-80 ng/mL The assay reportable range is 3.4155.9 ng/mL. Levels higher than 150 ng/mL may be associated with toxicity. If toxicity is clinically suspected and the reported result is >155.9 ng/mL,contact lab for alternative methods to obtain a definitivelevel. If separate quantitation of 25-hydroxy vitamin D3 and 25-hydroxy vitamin D2 is needed, please contact lab for alternative methods. Specimen Blood Performing Organization Address [facility] Phone Number [facility] DEPARTMENT OF PATHOLOGY AND [address] [place] [address] GENOMIC MEDICINE HIV 1, 2 antibody (11/18/2017 11:39 AM) HIV 1, 2 antibody Non-reactive Non-reactive [facility] DEPARTMENT OF Comment: PATHOLOGY AND GENOMIC Starting from October 25 2015, 4th generation HIV screening MEDICINE and confirmation assays are in use at [facility], consistent with the CDC-recommended algorithm. The screening test detects antibodies to HIV-1, HIV-2 and the p24 antigen. Positive screening results will be automatically reflexed to a HIV-1/HIV-2 differentiation assay. Indeterminant HIV-1 results will be further automatically reflexed to a nucleic acid test for detection of acute infection. Western blot will no longer be performed as a confirmation test. For a quick reference guide on the testing algorithm, please refer to: http://stacks.cdc.gov/view/cdc/26686. Specimen Blood Performing Organization Address City/State/Zipcode Phone Number [facility] DEPARTMENT OF PATHOLOGY AND [address] [place] [address] Folate level (11/18/2017 11:39 AM) Folate >20.0 4.8 - 24.2 ng/mL [facility] DEPARTMENT OF PATHOLOGY AND GENOMIC MEDICINE Specimen Serum Performing Organization Address [facility] Phone Number [facility] DEPARTMENT OF PATHOLOGY AND [address] [place] [address] Vitamin B12 level (11/18/2017 11:39 AM) Vitamin B12 545 211 - 946 pg/mL [facility] DEPARTMENT OF PATHOLOGY Comment: AND [facility] Significant overlap exists between normal and deficiency states. However, most patients with deficiencies will have Serum B12 <200 pg/mL. Specimen Serum Performing Organization Address [facility] Phone Number [facility] DEPARTMENT OF PATHOLOGY AND [address] [place] [address] Lactic acid level, SEPSIS - Now and repeat 2x every 3 hours (11/18/2017 10:09 AM )Only the most recent of2 resultswithin the time period is included. Lactic acid 0.8 0.5 - 2.2 mmol/L [facility] DEPARTMENT OF PATHOLOGY AND GENOMIC MEDICINE Specimen Blood Performing Organization Address [facility] Phone Number [facility] DEPARTMENT OF PATHOLOGY AND [address] [place] [address] Arterial blood gas (11/18/2017 10:09 AM) pH, arterial 7.42 7.35 - 7.45 [facility] DEPARTMENT OF PATHOLOGY AND GENOMIC MEDICINE pCO2, arterial 29 (L) 35 - [address] [facility] DEPARTMENT OF PATHOLOGY AND GENOMIC MEDICINE pO2, arterial 118 (H) 80 - [address] [facility] DEPARTMENT OF PATHOLOGY AND GENOMIC MEDICINE Bicarbonate, arterial 18.2 (L) 21.0 - 28.0 mmol/L [facility] DEPARTMENT OF PATHOLOGY AND GENOMIC MEDICINE Base excess, arterial -5 (L) -2 - 2 mEq/L [facility] DEPARTMENT OF PATHOLOGY AND GENOMIC MEDICINE O2 saturation, arterial 99 95 - 100 % [facility] DEPARTMENT OF PATHOLOGY AND GENOMIC MEDICINE Specimen Blood Performing Organization Address [facility] Phone Number [facility] DEPARTMENT OF PATHOLOGY AND [address] [place] [address] CT Head Wo Contrast (11/18/2017 9:26 AM)Only the most recent of2 resultswithin the time period is included. Narrative Performed At EXAMINATION: CT HEAD WO CONTRAST HM [facility] CLINICAL HISTORY: SEIZURES NEW OR PROGRESSIVE COMPARISON:08/17/2017. TECHNIQUE: Noncontrast CT of the brain was performed from the skull base to the vertex. Both soft tissue and bone reconstruction algorithms are interpreted. CT imaging was performed with iterative reconstruction techniques and/or automated exposure control to reduce radiation dose. FINDINGS: No intracranial hemorrhage, extra-axial collection, or mass-effect is seen.No acute cortical infarct is identified. No hyperdense vessel is seen. No air-fluid level is seen in the visualized portions of the paranasal sinuses. Mastoid air cells are clear. IMPRESSION: No acute intracranial abnormality identified. [facility]-[id number] Procedure Note [facility], Radiology Results Incoming - 11/18/2017 9:32 AM CDT EXAMINATION: CT HEAD WO CONTRAST CLINICAL HISTORY: SEIZURES NEW OR PROGRESSIVE COMPARISON: 08/17/2017. TECHNIQUE: Noncontrast CT of the brain was performed from the skull base to the vertex. Both soft tissue and bone reconstruction algorithms are interpreted. CT imaging was performed with iterative reconstruction techniques and/or automated exposure control to reduce radiation dose. FINDINGS: No intracranial hemorrhage, extra-axial collection, or mass-effect is seen. No acute cortical infarct is identified. No hyperdense vessel is seen. No air-fluid level is seen in the visualized portions of the paranasal sinuses. Mastoid air cells are clear. IMPRESSION: No acute intracranial abnormality identified. [id number] Performing Organization Address City/State/Zipcode Phone Number [facility] [address] [place] [address] XR Abdomen 1 Vw (11/18/2017 8:54 AM) Narrative Performed At EXAMINATION:XR ABDOMEN 1 VW HM [facility] CLINICAL HISTORY:abdominal distention COMPARISON:None. FINDINGS: There is diffuse increase in the amount of gas and feces throughout the colon. There is no free air. No abnormal calcifications are noted. IMPRESSION: As above [id number] Procedure Note Interface, Radiology Results Incoming - 11/18/2017 8:58 AM CDT EXAMINATION: XR ABDOMEN 1 VW CLINICAL HISTORY: abdominal distention COMPARISON: None. FINDINGS: There is diffuse increase in the amount of gas and feces throughout the colon. There is no free air. No abnormal calcifications are noted. IMPRESSION: As above [id number] Performing Organization Address City/[facility]/Zipcode Phone Number [facility] [address] [place] [address] Urine drugs of abuse screen (11/18/2017 8:26 AM) Amphetamine screen, urine Negative [facility] DEPARTMENT OF PATHOLOGY AND GENOMIC MEDICINE Barbiturate screen, urine Negative [facility] DEPARTMENT OF PATHOLOGY AND GENOMIC MEDICINE Benzodiazepine screen, Negative [facility] DEPARTMENT OF urine PATHOLOGY AND GENOMIC MEDICINE Cannabinoid screen, urine Negative [facility] DEPARTMENT OF PATHOLOGY AND GENOMIC MEDICINE Cocaine screen, urine Negative [facility] DEPARTMENT OF PATHOLOGY AND GENOMIC MEDICINE Methadone metabolite Negative [facility] DEPARTMENT OF (EDDP), urine PATHOLOGY AND GENOMIC MEDICINE Opiates screen, urine Negative [facility] DEPARTMENT OF PATHOLOGY AND GENOMIC MEDICINE Oxycodone screen, urine Negative [facility] DEPARTMENT OF PATHOLOGY AND GENOMIC MEDICINE Phencyclidine screen, urine Negative [facility] DEPARTMENT OF PATHOLOGY AND GENOMIC MEDICINE Tricyclic screen, urine Negative [facility] DEPARTMENT OF Comment: PATHOLOGY AND GENOMIC Drug screen minimum concentration of detectability MEDICINE Etobtdpgkerc3123 ng/mL Barbiturates 200 ng/mL Wtjwnazumyfgmmd504 ng/mL Dnoyzdx048 ng/mL Yqhzznmne582 ng/mL Rxsjwep731 ng/mL Stodkdldm472 ng/mL Phencyclidine 25 ng/mL Yyfqblyhfvpx77 ng/mL Woaklamlia1362 ng/mL Negative test results indicates presumptive evidence of lack of clinically significant drug concentration in this urine specimen. Positive test results are presumptive evidence of clinically significant drug concentration in this urine specimen. Testing performed for medical purposes only. Specimen Urine Performing Organization Address [facility] Phone Number [facility] DEPARTMENT OF PATHOLOGY AND [address] [place] [address] GENOMIC MEDICINE Gram stain (11/18/2017 8:26 AM)Only the most recent of2 resultswithin the time period is included. Gram stain result Occasional WBC's [facility] DEPARTMENT OF PATHOLOGY Many Gram negative rods AND GENOMIC MEDICINE Comment: Specimen Information Specimen Source: Urine Specimen Site: Clean catch Specimen Urine Performing Organization Address [facility] Cent[facility] Phone Number [facility] DEPARTMENT OF PATHOLOGY AND [address] [place] [address] [facility] MEDICINE Blood culture, aerobic & anaerobic (11/18/2017 8:06 AM)Only the most recent of4 resultswithin the time period is included. Blood culture isolate No growth after [address] [facility] DEPARTMENT OF Comment: PATHOLOGY AND GENOMIC Specimen Information MEDICINE Specimen Source: Blood Specimen Site: Peripheral Forearm Left Specimen Blood - Antecubital, right Performing Organization Address [facility] Cent[facility]ode Phone Number [facility] DEPARTMENT OF PATHOLOGY AND [address] [place] [address] [facility] CRITICAL CARE (11/18/2017 6:42 AM) Narrative Performed At Zohaib Landreos MD 11/22/20177:41 AM Critical Care Performed by: DAREN DRAKE Authorized by: ZOHAIB LANDEROS Critical care provider statement: Critical care time (minutes):35 Critical care was necessary to treat or prevent imminent or life-threatening deterioration of the following conditions:Metabolic crisis, dehydration and sepsis Critical care was time spent personally by me on the following activities:Development of treatment plan with patient or surrogate, discussions with consultants, evaluation of patient's response to treatment, obtaining history from patient or surrogate, pulse oximetry, ordering and review of laboratory studies, ordering and review of radiographic studies, ordering and performing treatments and interventions and review of old charts Partial thromboplastin time, activated (11/18/2017 6:32 AM)Only the most recent of2 resultswithin the time period is included. PTT 32.5 23.0 - 36.[address] [facility] DEPARTMENT OF PATHOLOGY Comment: AND [facility] PTT therapeutic range for unfractionated heparin is 61.0-112.0 seconds which corresponds to Anti-Xa 0.3-0.7 U/ml. Specimen Blood Performing Organization Address [facility] Centercode Phone Number [facility] DEPARTMENT OF PATHOLOGY AND [address] [place] [address] [facility] Sedimentation rate (11/18/2017 6:32 AM) Sedimentation rate SEE COMMENT 0 - 20 mm/hr [facility] DEPARTMENT OF PATHOLOGY Comment: AND [employer] [facility] Footnote--------- Unable to perform testing, specimen is SPUN DOWN.Recollect requested for ESR2 (tests)._MS. ARGUETA/CHARGE NURSE QUIN (name/location) notified by [facility]_ (tech ID) at11/18/201713:25__ (date/time). Credit issued. Performing Organization Address City/[facility]/Zipcode Phone Number [facility] DEPARTMENT OF PATHOLOGY AND [address] [place] [address] Prothrombin time with INR (11/18/2017 6:32 AM)Only the most recent of2 resultswithin the time period is included. Prothrombin time 15.1 (H) 12.0 - 15.[address] [facility] DEPARTMENT OF PATHOLOGY AND [facility] INR 1.2 [facility] DEPARTMENT OF Comment: PATHOLOGY AND GENOMIC The International Normalized Ratio (INR) is a therapeutic MEDICINE monitoring tool for patients who are stable on oral anticoagulant therapy. An INR of 2.0-3.0 is suggested for deep vein thrombosis/pulmonary embolism. Specimen Blood Performing Organization Address City/[facility] Cent[facility] Phone Number [facility] DEPARTMENT OF PATHOLOGY AND [address] [place] [address] C-reactive protein (11/18/2017 6:32 AM) CRP 2.48 (H) 0.00 - 0.50 mg/dL [facility] DEPARTMENT OF PATHOLOGY AND [facility] Specimen Blood Performing Organization Address City/[facility] Phone Number [facility] DEPARTMENT OF PATHOLOGY AND [address] [place] [address] Thyroid stimulating hormone (11/18/2017 6:32 AM)Only the most recent of2 resultswithin the time period is included. TSH 2.60 0.27 - 4.20 uIU/mL [facility] DEPARTMENT OF PATHOLOGY AND [facility] Specimen Blood Performing Organization Address City/[facility]ode Phone Number [facility] DEPARTMENT OF PATHOLOGY AND [address] [place] [address] T4, free (11/18/2017 6:32 AM) T4, free 1.7 0.9 - 1.7 ng/dL [facility] DEPARTMENT OF PATHOLOGY AND GENOMIC MEDICINE Specimen Blood Performing Organization Address [facility] Phone Number [facility] DEPARTMENT OF PATHOLOGY AND [address] [place] [address] Hemoglobin A1c (11/18/2017 6:32 AM)Only the most recent of3 resultswithin the time period is included. Hemoglobin A1C 6.2 (H) 4.0 - 5.6 % [facility] DEPARTMENT OF PATHOLOGY Comment: [facility] HbA1c cutoffs for diagnosing diabetes: 4.0% - 5.6%=normal 5.7% - 6.4%=increased risk for diabetes (prediabetes) >=6.5%=diabetes Goals for glycemic control (ADA 2016) < 7.0%Target for non adults with diabetes. More or less stringent targets may be appropriate for individual patients. <7.5% Target for Children and adolescents with type 1 diabetes. Performing Organization Address City/[facility] Cent[facility]ode Phone Number [facility] DEPARTMENT OF PATHOLOGY AND [address] [place] [phone] [place] [address] Alcohol level, blood (11/18/2017 6:32 AM) Alcohol None Detected mg/dL [facility] DEPARTMENT OF PATHOLOGY Comment: AND GENOMIC MEDICINE Normal None Detected Legal Intoxication in [place]80 mg/dL (0.08%) - Whole Blood Toxic Lvqldhdmxrodp034 mg/dL (0.2%) Potentially Yohlg692 - 500 mg/dL (0.35 - 0.5%) Alcohol percent None Detected % [facility] DEPARTMENT OF PATHOLOGY AND GENOMIC MEDICINE Specimen Blood Performing Organization Address [facility] Phone Number [facility] DEPARTMENT OF PATHOLOGY AND [address] [place] [address] [facility] MEDICINE Acetaminophen level (11/18/2017 6:32 AM) Acetaminophen level <15.0 10.0 - 30.0 ug/mL [facility] DEPARTMENT OF Comment: PATHOLOGY AND GENOMIC Therapeutic 10-30 ug/mL MEDICINE Possible Toxicity 150-200 ug/mL Probable Toxicity >200 ug/mL Specimen Blood Performing Organization Address [facility] Phone Number [facility] DEPARTMENT OF PATHOLOGY AND [address] [place] [address] [facility] Salicylate level (11/18/2017 6:32 AM) Salicylate <3.0 3.0 - 30.0 mg/dL [facility] DEPARTMENT OF PATHOLOGY AND GENOMIC MEDICINE Specimen Blood Performing Organization Address [facility] Phone Number [facility] DEPARTMENT OF PATHOLOGY AND [address] [place] [phone] GENOMIC MEDICINE XR Chest 2 Vw (11/13/2017 1:31 PM) Narrative Performed At Examination: [facility] Clinical history: Z01.818 Encounter for other preprocedural examination, preop Comparison: August 17 Impression: 1. The heart and pulmonary vasculature are within normal limits. 2. No infiltrate or effusion is demonstrated. 3. There is no acute osseous pathology. CONCLUSION: NO RADIOGRAPHIC EVIDENCE OF ACUTE CARDIOPULMONARY ABNORMALITY. [facility]-[id number] Procedure Note Hm Interface, Radiology Results Incoming - 11/13/2017 1:57 PM CDT Examination: XR CHEST 2 VW Clinical history: Z01.818 Encounter for other preprocedural examination, preop Comparison: August 17 Impression: 1. The heart and pulmonary vasculature are within normal limits. 2. No infiltrate or effusion is demonstrated. 3. There is no acute osseous pathology. CONCLUSION: NO RADIOGRAPHIC EVIDENCE OF ACUTE CARDIOPULMONARY ABNORMALITY. [facility]-[id number] Performing Organization Address [facility]ode Phone Number [facility] [address] [place] [phone] AST (SGOT) (11/13/2017 11:50 AM) AST 22 10 - 35 U/L [facility] DEPARTMENT OF PATHOLOGY AND GENOMIC MEDICINE Specimen Plasma specimen Performing Organization Address [facility] Phone Number [facility] DEPARTMENT OF PATHOLOGY AND [address] [place] [phone] [facility] Potassium level (11/13/2017 11:50 AM) Potassium 5.2 (H) 3.5 - 5.0 mEq/L [facility] DEPARTMENT OF PATHOLOGY Comment: AND [facility] MEDICINE Preferred specimen is heparinized blood.Test was run on serum. Serum K may be 0.1 - 0.7 mEq/L higher than herparinized blood K. Specimen Plasma specimen Performing Organization Address [facility] Phone Number [facility] DEPARTMENT OF PATHOLOGY AND [address] [place] [address] [facility] Bilirubin direct (11/13/2017 11:50 AM) Bilirubin direct <0.2 0.0 - 0.3 mg/dL [facility] DEPARTMENT OF PATHOLOGY AND GENOMIC MEDICINE Specimen Plasma specimen Performing Organization Address [facility] Phone Number [facility] DEPARTMENT OF PATHOLOGY AND [address] [place] [address] [facility] ECG Pre/Post Op (11/13/2017 11:33 AM) Ventricular rate 94 [facility] Atrial rate [address] interval 142 [facility] QRSD interval 86 [facility] QT interval 368 [facility] QTC interval 460 [facility] P axis 1 64 [facility] QRS axis 1 -35 [facility] T wave axis 56 [facility] EKG impression Normal sinus rhythm-Possible Left atrial enlargement-Left axis deviation-Left ventricular hypertrophy-Abnormal ECG-In automated comparison with ECG of 17-AUG-2017 12:01,-Criteria for Septal infarct are [facility] MUSE no longer present- Performing Organization Address City/[facility] Cent[facility]ode Phone Number [facility] MUSE [address] [place] [address] Phosphorus level (11/13/2017 11:27 AM)Only the most recent of3 resultswithin the time period is included. Phosphorus 4.1 2.4 - 4.5 mg/dL [facility] DEPARTMENT OF PATHOLOGY AND GENOMIC MEDICINE Specimen Plasma specimen Performing Organization Address [facility] Phone Number [facility] DEPARTMENT OF PATHOLOGY AND [address] [place] [address] GENOMIC MEDICINE Magnesium level (11/13/2017 11:27 AM)Only the most recent of3 resultswithin the time period is included. Magnesium 1.6 1.6 - 2.6 mg/dL [facility] DEPARTMENT OF PATHOLOGY AND GENOMIC MEDICINE Specimen Plasma specimen Performing Organization Address [facility] Phone Number [facility] DEPARTMENT OF PATHOLOGY AND [address] [place] [address] [facility] MEDICINE Hepatic function panel (11/13/2017 11:27 AM) Albumin 3.6 3.5 - 5.0 g/dL [facility] DEPARTMENT OF PATHOLOGY AND GENOMIC MEDICINE Total bilirubin 0.3 0.0 - 1.2 mg/dL [facility] DEPARTMENT OF PATHOLOGY AND GENOMIC MEDICINE Bilirubin direct SEE COMMENTComment: 0.0 - 0.3 mg/dL [facility] DEPARTMENT OF Footnote--------- PATHOLOGY AND GENOMIC MEDICINE Alkaline phosphatase 74 35 - 104 U/L [facility] DEPARTMENT OF PATHOLOGY AND GENOMIC MEDICINE Protein 6.8 6.3 - 8.3 g/dL [facility] DEPARTMENT OF Comment: PATHOLOGY AND GENOMIC 4.6-7.0 g/dL MEDICINE 1 week 4.4-7.6 g/dL 7 months-1year5.1-7.3 g/dL 1-2 years5.6-7.5 g/dL >3 years6.0-8.0 g/dL 18-150 6.3-8.3 g/dL ALT 20 5 - 50 U/L [facility] DEPARTMENT OF PATHOLOGY AND GENOMIC MEDICINE AST SEE COMMENTComment: 10 - 35 U/L [facility] DEPARTMENT OF Footnote--------- PATHOLOGY AND GENOMIC MEDICINE Specimen Plasma specimen Performing Organization Address [facility] Phone Number [facility] DEPARTMENT OF PATHOLOGY AND [address] [place] [address] GENOMIC MEDICINE XR Cervical Spine Ap Lateral Flexion And Extension (11/13/2017 8:58 AM) Narrative Performed At EXAMINATION:XR CERVICAL SPINE AP LATERAL FLEXION AND EXTENSION [facility] CLINICAL HISTORY:M54.12 Radiculopathycervical region, NECK PAINCERVICAL SPINE COMPARISON:August 19, 2017 IMPRESSION: 5 views of the cervical spine were obtained. C6-T1 are poorly evaluated due to shoulder overlap on lateral views. Cervical spine alignment is within normal limits. No displaced fractures or aggressive bony lesions. No prevertebral soft tissue swelling. Multilevel disc space narrowing and potential changes most prominent at C5-6. No abnormal motion on flexion-extension views. [facility]-[id number] Procedure Note Interface, Radiology Results Incoming - 11/13/2017 10:10 AM CDT EXAMINATION: XR CERVICAL SPINE AP LATERAL FLEXION AND EXTENSION CLINICAL HISTORY: M54.12 Radiculopathy cervical region, NECK PAIN CERVICAL SPINE COMPARISON: August 19, 2017 IMPRESSION: 5 views of the cervical spine were obtained. C6-T1 are poorly evaluated due to shoulder overlap on lateral views. Cervical spine alignment is within normal limits. No displaced fractures or aggressive bony lesions. No prevertebral soft tissue swelling. Multilevel disc space narrowing and potential changes most prominent at C5-6. No abnormal motion on flexion-extension views. [facility]-[id number] Performing Organization Address [facility] Phone Number [facility] [address] [place] [address] CT Maxillofacial Wo Contrast (08/21/2017 1:06 PM) Narrative Performed At EXAMINATION:CT MAXILLOFACIAL WO CONTRAST [facility] CLINICAL HISTORY:FACIAL FRACTURE(S) COMPARISON:None. TECHNIQUE: CT imaging was performed with iterative reconstruction technique and/or automated exposure control to reduce radiation dose. FINDINGS: Comminuted fractures of bilateral nasal bones extends into the junction of the nasal and frontal bones and extends posteriorly to involve the nasal septum. No other facial fractures. Paranasal sinuses are clear. Orbits and soft tissues are within normal limits. Avulsion fractures of the C4 superior and inferior endplate anteriorly. Nondisplaced fractures of the lateral aspect of the left C2 transverse process. Mildly displaced fractures of the anterior aspects of bilateral C5 transverse processes. IMPRESSION: Comminuted fractures of bilateral nasal bones and bony nasal septum. Cervical spine fractures involving C2, C4 and C5. Findings were discussed with and acknowledged by Dr Can at 08/21/2017 1:[address] [facility]-[id number] Procedure Note [facility], Radiology Results Incoming - 08/21/2017 1:48 PM [employer] EXAMINATION: CT MAXILLOFACIAL WO CONTRAST CLINICAL HISTORY: FACIAL FRACTURE(S) COMPARISON: None. TECHNIQUE: CT imaging was performed with iterative reconstruction technique and /or automated exposure control to reduce radiation dose. FINDINGS: Comminuted fractures of bilateral nasal bones extends into the junction of the nasal and frontal bones and extends posteriorly to involve the nasal septum. No other facial fractures. Paranasal sinuses are clear. Orbits and soft tissues are within normal limits. Avulsion fractures of the C4 superior and inferior endplate anteriorly. Nondisplaced fractures of the lateral aspect of the left C2 transverse process. Mildly displaced fractures of the anterior aspects of bilateral C5 transverse processes. IMPRESSION: Comminuted fractures of bilateral nasal bones and bony nasal septum. Cervical spine fractures involving C2, C4 and C5. Findings were discussed with and acknowledged by Dr Can at 08/21/2017 1: [address] [facility]-[id number] Performing Organization Address [facility] Cent[facility] Phone Number [facility] [address] [place] [address] Sodium level, urine, random (08/19/2017 4:29 PM) Sodium, urine, random 109 mEq/L [facility] DEPARTMENT OF PATHOLOGY AND GENOMIC MEDICINE Specimen Urine Performing Organization Address City/[facility] Phone Number [facility] DEPARTMENT OF PATHOLOGY AND [address] [place] [phone] GENOMIC MEDICINE Osmolality, urine (08/19/2017 4:29 PM) Osmolality, urine 350 50 - 1,400 mOsm/kg [facility] DEPARTMENT OF PATHOLOGY AND GENOMIC MEDICINE Specimen Urine Performing Organization Address [facility] Phone Number [facility] DEPARTMENT OF PATHOLOGY AND [address] [place] [address] [facility] MEDICINE Creatinine level, urine, random (08/19/2017 4:29 PM) Creatinine, urine, random 29 mg/dL [facility] DEPARTMENT OF PATHOLOGY AND GENOMIC MEDICINE Specimen Urine Performing Organization Address City/State/Zipcode Phone Number [facility] DEPARTMENT OF PATHOLOGY AND [address] [place] [address] GENOMIC MEDICINE CRITICAL CARE (08/19/2017 7:16 AM) Narrative Performed At Zohaib Landeros MD 08/19/20177:16 AM Critical Care Performed by: SETH TRINH Authorized by: ZOHAIB LANDEROS Critical care provider statement: Critical care time (minutes):35 Critical care time was exclusive of:Separately billable procedures and treating other patients Critical care was necessary to treat or prevent imminent or life-threatening deterioration of the following conditions:Dehydration and metabolic crisis Critical care was time spent personally by me on the following activities:Development of treatment plan with patient or surrogate, ordering and review of laboratory studies, ordering and review of radiographic studies and re-evaluation of patient's condition Yassine 'yes' if you are taking over critical care for this patient from another provider.: no MRI Cervical Spine Wo Contrast (08/18/2017 1:51 PM) Narrative Performed At EXAMINATION: MRI CERVICAL SPINE WO CONTRAST [facility] CLINICAL HISTORY: NECK PAIN FOLLOWING TRAUMA, RECENT TRAUMASPINE COMPARISON:CT cervical spine from yesterday. TECHNIQUE: Multiplanar multisequence noncontrast enhanced examination was performed of the cervical spine. FINDINGS: There is a small amount of edema signal in the anterior inferior C4 endplate consistent with an avulsion fracture. The CT also showed a small triangle corticated bone anterior to the upper C4 vertebral body and I can't exclude an avulsion fracture. There is mild increased T2 signal changes in the interspinous region at C3-4 and C4-5 which could be from ligament abnormality. There is a small amount of prevertebral fluid in the cervical region with edema in the longus coli muscles from the C2 level down to the C7 level. There is no definite evidence of edema in the posterior longitudinal ligaments. There is straightening of the cervical lordosis. Motion artifact obscure some details especially on the axial images. There is decreased T2 signal intensity throughout the cervical discs. There is congenital cervical canal stenosis. C2-3: There is central dorsal spondylosis indenting the anterior cord. There is mild ligamentum flavum hypertrophy flattening the posterior cord. There is moderate central canal stenosis. Artifacts obscure some detail of the foramen. There is is at least mild foramen stenosis on the left and possibly moderate foramen stenosis on the right on the axial gradient echo images. C3-4: There is dorsal spondylosis with central and right paracentral protrusion indenting the anterior cord with mass effect on the ventral nerve root. There is ligamentum flavum hypertrophy indenting the posterior cord. There is severe canal stenosis. 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 This could also be from manual trauma and venous hypertension. There are facet and uncovertebral joint hypertrophic changes with artifact obscuring some detail of the foramen on the axial images limiting evaluation. C4-5: There is dorsal spondylosis greater in the central and right paracentral region with possible mass effect on the right ventral nerve roots. There is ligamentum flavum hypertrophy indenting the posterior cord on the left. There is moderate canal stenosis. There appears to be severe right and mild left foramen stenosis from facet and uncovertebral joint hypertrophy. C5-6: There is disc space narrowing with surrounding endplate degenerative change. There is dorsal spondylosis more prominent in the central and right paracentral region with mass effect on the cord and right ventral nerve root. There is facet and ligamentum flavum hypertrophy with moderate artifacts obscure the cord signal at this level. Narrowing of the AP dimension of the central subarachnoid space. There are facet and uncovertebral joint hypertrophic changes greater on the right with severe right and moderate to severe left foramen stenosis. C6-7: There is dorsal spondylosis indenting the anterior subarachnoid space in the central and paracentral regions. There is ligamentum flavum hypertrophy. There is mild to moderate narrowing of the AP dimension of the central subarachnoid space. There may be mass effect on the ventral nerve roots. There are facet and uncovertebral joint hypertrophic changes with severe right and mild left foramen stenosis. C7-T1: There is no significant canal or foramen stenosis from degenerative changes. There is greater posterior disc space narrowing with the minimal anterolisthesis. There is inward concavity of some of the upper thoracic endplates consistent with old fractures since there is no evidence of edema. The study was not performed for proper imaging of soft tissue structures in the neck and chest and artifacts obscure details of the thyroid gland limiting evaluation for a mass. IMPRESSION: Prevertebral soft tissue swelling which could be from recent trauma. Findings suggest ligament injury in the interspinous region at C3-4 and C4-5. Findings consistent with a tiny avulsion fracture of the anterior inferior C4 endplate. Finding on the CT also suggest there could be a small evulsion fracture of the upper anterior C4 vertebral body. Severe canal stenosis in the upper cervical region at C3-4 with increased T2 signal intensity in the bilateral paracentral cord most consistent with cord ischemia. Degenerative changes with canal stenosis and cord indentation at several other levels as described. 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 TECHNIQUE: Multiplanar multisequence noncontrast enhanced examination was performed of the cervical spine. FINDINGS: There is a small amount of edema signal in the anterior inferior C4 endplate consistent with an avulsion fracture. The CT also showed a small triangle corticated bone anterior to the upper C4 vertebral body and I can't exclude an avulsion fracture. There is mild increased T2 signal changes in the interspinous region at C3-4 and C4- 5 which could be from ligament abnormality. There is a small amount of prevertebral fluid in the cervical region with edema in the longus coli muscles from the C2 level down to the C7 level. There is no definite evidence of edema in the posterior longitudinal ligaments. There is straightening of the cervical lordosis. Motion artifact obscure some details especially on the axial images. There is decreased T2 signal intensity throughout the cervical discs. There is congenital cervical canal stenosis. C2-3: There is central dorsal spondylosis indenting the anterior cord. There is mild ligamentum flavum hypertrophy flattening the posterior cord. There is moderate central canal stenosis. Artifacts obscure some detail of the foramen. There is is at least mild foramen stenosis on the left and possibly moderate foramen stenosis on the right on the axial gradient echo images. C3-4: There is dorsal spondylosis with central and right paracentral protrusion indenting the anterior cord with mass effect on the ventral nerve root. There is ligamentum flavum hypertrophy indenting the posterior cord. There is severe canal stenosis. 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 This could also be from manual trauma and venous hypertension. There are facet and uncovertebral joint hypertrophic changes with artifact obscuring some detail of the foramen on the axial images limiting evaluation. C4-5: There is dorsal spondylosis greater in the central and right paracentral region with possible mass effect on the right ventral nerve roots. There is ligamentum flavum hypertrophy indenting the posterior cord on the left. There is moderate canal stenosis. There appears to be severe right and mild left foramen stenosis from facet and uncovertebral joint hypertrophy. C5-6: There is disc space narrowing with surrounding endplate degenerative change. There is dorsal spondylosis more prominent in the central and right paracentral region with mass effect on the cord and right ventral nerve root. There is facet and ligamentum flavum hypertrophy with moderate artifacts obscure the cord signal at this level. Narrowing of the AP dimension of the central subarachnoid space. There are facet and uncovertebral joint hypertrophic changes greater on the right with severe right and moderate to severe left foramen stenosis. C6-7: There is dorsal spondylosis indenting the anterior subarachnoid space in the central and paracentral regions. There is ligamentum flavum hypertrophy. There is mild to moderate narrowing of the AP dimension of the central subarachnoid space. There may be mass effect on the ventral nerve roots. There are facet and uncovertebral joint hypertrophic changes with severe right and mild left foramen stenosis. C7-T1: There is no significant canal or foramen stenosis from degenerative changes. There is greater posterior disc space narrowing with the minimal anterolisthesis. There is inward concavity of some of the upper thoracic endplates consistent with old fractures since there is no evidence of edema. The study was not performed for proper imaging of soft tissue structures in the neck and chest and artifacts obscure details of the thyroid gland limiting evaluation for a mass. IMPRESSION: Prevertebral soft tissue swelling which could be from recent trauma. Findings suggest ligament injury in the interspinous region at C3-4 and C4-5. Findings consistent with a tiny avulsion fracture of the anterior inferior C4 endplate. Finding on the CT also suggest there could be a small evulsion fracture of the upper anterior C4 vertebral body. Severe canal stenosis in the upper cervical region at C3-4 with increased T2 signal intensity in the bilateral paracentral cord most consistent with cord ischemia. Degenerative changes with canal stenosis and cord indentation at several other levels as described. [facility]-[id number] Performing Organization Address City/State/Zipcode Phone Number [facility] [address] [place] [address] MRI Brain Wo Contrast (08/18/2017 1:29 PM) Narrative Performed At EXAMINATION: [facility]: evaluate for any intracranial bleed COMPARISON:CT brain from yesterday. TECHNIQUE: Multiplanar and multisequence MRI imaging of the brain was obtained without contrast. FINDINGS: The CT brain questions a small amount of hemorrhage along the right falx. This is again seen on the MRIgradient echo images. There is also a small amount of blooming along the gyri in the bilateral frontal extra-axial region consistent with a tiny amount of subarachnoid hemorrhage or old hemorrhage with hemosiderin. There are also small bilateral subdural partially hemorrhage signal collections in the frontal temporal and anterior parietal regions. It measures approximately 4 mm in greatest transverse dimension on the left and 3 mm greatest transverse dimension in the right in the frontal regions consistent with subdural hygromas with a small amount of hemorrhagic signal and mild if any mass effect. The sella is partially empty. IMPRESSION: Small amount of subarachnoid hemorrhage or hemosiderin staining along the bilateral frontal lobes. Small amount of hemorrhage along the right anterior falx. Bilateral anterior subdural hygromas with a t iny amount of hemorrhage signal which could be from recent or old hemorrhage. There is mild if any mass effect on the adjacent brain. 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 TECHNIQUE: Multiplanar and multisequence MRI imaging of the brain was obtained without contrast. FINDINGS: The CT brain questions a small amount of hemorrhage along the right falx. This is again seen on the MRI gradient echo images. There is also a small amount of blooming along the gyri in the bilateral frontal extra-axial region consistent with a tiny amount of subarachnoid hemorrhage or old hemorrhage with hemosiderin. There are also small bilateral subdural partially hemorrhage signal collections in the frontal temporal and anterior parietal regions. It measures approximately 4 mm in greatest transverse dimension on the left and 3 mm greatest transverse dimension in the right in the frontal regions consistent with subdural hygromas with a small amount of hemorrhagic signal and mild if any mass effect. The sella is partially empty. IMPRESSION: Small amount of subarachnoid hemorrhage or hemosiderin staining along the bilateral frontal lobes. Small amount of hemorrhage along the right anterior falx. Bilateral anterior subdural hygromas with a tiny amount of hemorrhage signal which could be from recent or old hemorrhage. There is mild if any mass effect on the adjacent brain. [id number] Performing Organization Address [facility]/Zipcode Phone Number [facility] [address] [place] [address] Lactic acid level (08/18/2017 12:09 AM) Lactic acid 1.6 0.5 - 2.2 mmol/L [facility] DEPARTMENT OF PATHOLOGY AND GENOMIC MEDICINE Specimen Blood Performing Organization Address [facility] Phone Number [facility] DEPARTMENT OF PATHOLOGY AND [address] [place] [address] GENOMIC MEDICINE XR Shoulder 2+ Vw Left (08/17/2017 5:08 PM) Narrative Performed At EXAMINATION:XR SHOULDER 2VW LEFT [facility] CLINICAL HISTORY:Pain post trauma COMPARISON:None. IMPRESSION: Bones are well-mineralized. No evidence of left shoulder fracture or dislocation.AC joint alignment is maintained. [facility]-[id number] Procedure Note Interface, Radiology Results Incoming - 08/17/2017 5:16 PM VACUUM DRIER OPERATOR EXAMINATION: XR SHOULDER 2 VW LEFT CLINICAL HISTORY: Pain post trauma COMPARISON: None. IMPRESSION: Bones are well-mineralized. No evidence of left shoulder fracture or dislocation. AC joint alignment is maintained. [facility]-[id number] Performing Organization Address [facility] Phone Number [facility] [address] [place] [address] CT Cervical Spine Wo Contrast (08/17/2017 3:35 PM) Narrative Performed At EXAMINATION:CT CERVICAL SPINE WO CONTRAST [facility] CLINICAL HISTORY:fallarm weakness COMPARISON:None. TECHNIQUE: Axial helical CT images throughout theCERVICAL spine were performedwithout contrast. Sagittal and coronal reformatted images were generated. CT scans are performed using radiation dose reduction techniques. Technical factors are evaluated and adjusted to ensure appropriate moderation of exposure. Automated dose management technology is applied to adjust radiation exposure while achieving a highly diagnostic quality image. FINDINGS: Sagittal image reconstructions demonstrate diffuse cervical degenerative disc space narrowing with anterior and posterior spondylotic spurs. There is no evidence of atlantoaxial subluxation. Axial images demonstrate the following: C1-2: No definite acute fracture. C2-3: There is a dorsal central partially calcified subligamentous protrusion. There is no significant central canal stenosis. C3-4: There is broad-based central and right paracentral bulge with spinal canal stenosis. C4-5: There is prominent disc osteophyte complex on the right with marked facet hypertrophy on the right. This results in severe right foraminal stenosis. C5-6: There are prominent right uncinate and facet hypertrophic changes and sclerosis resulting in severe right foraminal stenosis. C6-7: There is moderate spondylosis on the right with moderate right foraminal stenosis. C7-T1: There is mild spondylotic right foraminal stenosis. T1-2: There is mild spondylotic right foraminal stenosis. There is no definite acute fracture or prevertebral soft tissue swelling/hematoma. IMPRESSION: Broad-based central calcified protrusion at C2-3. Broad-based central and right paracentral bulge at C3-4 with spinal canal stenosis. Multilevel spondylotic foraminal stenosis more pronounced on the right as discussed above. MRI is recommended to better evaluate the cervical cord if there is clinical evidence of myelopathy. No acute fracture or prevertebral hematoma. [facility]-[id number] Procedure Note [facility], Radiology Results Incoming - 08/17/2017 4:44 PM VACUUM DRIER OPERATOR EXAMINATION: CT CERVICAL SPINE WO CONTRAST CLINICAL HISTORY: fall arm weakness COMPARISON: None. TECHNIQUE: Axial helical CT images throughout the CERVICAL spine were performed without contrast. Sagittal and coronal reformatted images were generated. CT scans are performed using radiation dose reduction techniques. Technical factors are evaluated and adjusted to ensure appropriate moderation of exposure. Automated dose management technology is applied to adjust radiation exposure while achieving a highly diagnostic quality image. FINDINGS: Sagittal image reconstructions demonstrate diffuse cervical degenerative disc space narrowing with anterior and posterior spondylotic spurs. There is no evidence of atlantoaxial subluxation. Axial images demonstrate the following: C1-2: No definite acute fracture. C2-3: There is a dorsal central partially calcified subligamentous protrusion. There is no significant central canal stenosis. C3-4: There is broad-based central and right paracentral bulge with spinal canal stenosis. C4-5: There is prominent disc osteophyte complex on the right with marked facet hypertrophy on the right. This results in severe right foraminal stenosis. C5-6: There are prominent right uncinate and facet hypertrophic changes and sclerosis resulting in severe right foraminal stenosis. C6-7: There is moderate spondylosis on the right with moderate right foraminal stenosis. C7-T1: There is mild spondylotic right foraminal stenosis. T1-2: There is mild spondylotic right foraminal stenosis. There is no definite acute fracture or prevertebral soft tissue swelling/ hematoma. IMPRESSION: Broad-based central calcified protrusion at C2-3. Broad-based central and right paracentral bulge at C3-4 with spinal canal stenosis. Multilevel spondylotic foraminal stenosis more pronounced on the right as discussed above. MRI is recommended to better evaluate the cervical cord if there is clinical evidence of myelopathy. No acute fracture or prevertebral hematoma. [facility]-[id number] Performing Organization Address City/State/Zipcode Phone Number [facility] [address] [place] [address] after 05/02/2017 Insurance Payer Benefit Plan / Group Subscriber ID Type Phone Address [employer] [facility] OPEN ACCESS/NETWORK xxxxxxxxxxx O Home: [address] [phone] [address]
[2018-05-03 09:23] LABS: BUN Blood Urea Nitrogen 16 mg/dL (7-18); Bicarbonate 23 mmol/L (21-32); Glucose Level 195 mg/dL (74-106); Potassium 5.4 mmol/L (3.5-5.1); Sodium Level 133 mmol/L (136-145); Troponin (Emerg Dept Use Only) < 0.02 ng/mL (0.0-0.045)
[2018-05-03 09:42] LABS: Absolute Lymphocytes (CBC) 1.9 K/uL (0.7-4.9); Absolute Neutrophil 9.2 K/uL (1.8-8.0); Basophils % 0.5 % (0-1.3); Eosinophils % 3.1 % (0-4.4); Hematocrit 27.2 % (36.0-45.0); MCH 25.7 pg (27.0-35.0); MCV 78.4 fL (80-100); MPV 7.4 fL (7.6-11.3); Monocytes % 7.6 % (3.3-12.3); RBC Red Blood Cell Count 3.47 M/uL (3.86-4.86)
--- NOTE | 2018-05-03 09:55 | RAD REPORT ---
EXAM DESCRIPTION: [place] Single View05/03/2018 9:02 am CLINICAL HISTORY: Chest pain COMPARISON: July 2017 FINDINGS: The lungs appear clear of acute infiltrate. The heart is normal size IMPRESSION: No acute abnormalities displayed
--- NOTE | 2018-05-03 10:10 | ER ---
Nurse's Notes [facility] Name: Liz Martin Age: 57 yrs Sex: Female : 1960 Arrival Date: 05/03/2018 Time: 08:15 Bed 3 Private MD: Diagnosis: Panic disorder [episodic paroxysmal anxiety] without agoraphobia;Anxiety disorder, unspecified;Acute upper respiratory infection, unspecified Presentation: 05/03 08:18 Presenting complaint: EMS states: Pt c/o SOB and anxiety, hyperventilating upon EMS ph arrival, w/ slight wheezes heard in upper airway, albuterol x 1 administered, Spo2 100% RA, BP 150s/80s, pulse 80, BGL 188, hx of depression and schizophrenia. Transition of care: patient was not received from another setting of care. Onset of symptoms was May 03, 2018. Risk Assessment: Do you want to hurt yourself or someone else? Patient reports no desire to harm self or others. Initial Sepsis Screen: Does the patient meet any 2 criteria? No. Patient's initial sepsis screen is negative. Does the patient have a suspected source of infection? No. Patient's initial sepsis screen is negative. Care prior to arrival: Medication(s) given: Albuterol Neb x 1. 08:18 Method Of Arrival: EMS: [facility] 08:18 Acuity: YOHANNES 3 ph Historical: - Allergies: 08:24 Iodine; ph - PMHx: 08:24 Diabetes - NIDDM; Schizophrenia; ph - PSHx: 08:24 ; ph - Immunization history:: Adult Immunizations unknown. - Social history:: Smoking status: Patient/guardian denies using tobacco. - Family history:: not pertinent. - Ebola Screening: : No symptoms or risks identified at this time. - Hospitalizations: : No recent hospitalization is reported. Screenin:26 Abuse screen: Denies threats or abuse. Denies injuries from another. Nutritional ph screening: No deficits noted. Tuberculosis screening: No symptoms or risk factors identified. Fall Risk None identified. Assessment: 08:25 General: Appears in no apparent distress. comfortable, Behavior is cooperative, ph appropriate for age, anxious, Denies fever, feeling ill. Pain: Denies pain. Neuro: Level of Consciousness is awake, alert, obeys commands, Oriented to person, place, time, situation. Cardiovascular: Denies chest pain, Capillary refill < 3 seconds in bilateral fingers Patient's skin is warm and dry. 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 GI: No signs and/or symptoms were reported involving the gastrointestinal system. EENT: Reports nasal congestion Denies difficulty swallowing. Derm: Skin is intact, is healthy with good turgor, Skin is pink, warm \T\ dry. Musculoskeletal: Circulation, motion, and sensation intact. Range of motion: intact in all extremities. 08:40 Reassessment: Patient appears in no apparent distress at this time. Patient and/or ph family updated on plan of care and expected duration. Pain level reassessed. Patient is alert, oriented x 3, equal unlabored respirations, skin warm/dry/pink. Pt ambulated to restroom, gait steady, denied SOB. 09:26 Reassessment: Patient appears in no apparent distress at this time. Patient and/or ph family updated on plan of care and expected duration. Pain level reassessed. Patient is alert, oriented x 3, equal unlabored respirations, skin warm/dry/pink. Pt resting quietly w/ eyes closed, respirations even and unlabored, family at bedside, awaiting lab and radiology results. 10:20 Reassessment: Patient appears in no apparent distress at this time. Patient and/or ph family updated on plan of care and expected duration. Pain level reassessed. Patient is alert, oriented x 3, equal unlabored respirations, skin warm/dry/pink. Dr Wilkes at bedside to speak w/ pt about test results, pt d/c home w/ . Vital Signs: 08:21 BP 128 / 66; Pulse 84; Resp 20; Temp 97.5; Pulse Ox 99% on R/A; Weight 65.77 kg; Height ph 5 ft. 6 in. (167.64 cm); Pain 0/10; 09:26 BP 118 / 64; Pulse 78; Resp 16; Pulse Ox 98% on R/A; ph 10:21 BP 122 / 68; Pulse 80; Resp 18; Temp 97.8; Pulse Ox 99% on R/A; ph 08:21 Body Mass Index 23.40 (65.77 kg, 167.64 cm) ph ED Course: 08:15 Patient arrived in ED. hb 08:15 Aldair Wilkes MD is Attending Physician. rn 08:18 Elo Falk, RN is Primary Nurse. ph 08:21 Triage completed. ph 08:24 Arm band placed on. ph 08:27 Patient has correct armband on for positive identification. Bed in low position. Call ph light in reach. Side rails up X 1. Pulse ox on. NIBP on. Warm blanket given. Verbal reassurance given. 08:56 Initial lab(s) drawn, by me, sent to lab. Missed attempt(s): 22 gauge in right ph antecubital area. Bleeding controlled, band aid applied, catheter tip intact. 08:57 X-ray completed. Portable x-ray completed in exam room. 08:57 XRAY Chest (1 view) In Process Unspecified. EDMS 10:21 No provider procedures requiring assistance completed. Patient did not have IV access ph during this emergency room visit. Administered Medications: No medications were administered Outcome: 10:09 Discharge ordered by . rn 10:21 Discharged to home ambulatory, with significant other. ph 10:21 Condition: good 10:21 Discharge instructions given to patient, significant other, Instructed on discharge instructions, follow up and referral plans. medication usage, Demonstrated understanding of instructions, follow-up care, medications, Prescriptions given X 1. 10:22 Patient left the ED. ph Signatures: Dispatcher [employer] EDMS Aldair Wilkes MD MD rn Elo Falk, RN RN Teena Alegria Heather, RN RN
--- NOTE | 2018-05-03 10:10 | EDPHYS ---
Physician Documentation [facility] Name: Liz Martin Age: 57 yrs Sex: Female : 1960 Arrival Date: 05/03/2018 Time: 08:15 Bed 3 Private MD: ED Physician Aldair Wilkes HPI: 05/03 08:17 This 57 yrs old Female presents to ER via Unassigned with complaints of panic rn attack. 08:17 The patient has shortness of breath during emotionally upset. Onset: The rn symptoms/episode began/occurred just prior to arrival. The patient's shortness of breath is aggravated by nothing, is alleviated by application of supplemental oxygen. Severity of symptoms: At their worst the symptoms were moderate in the emergency department the symptoms have resolved. The patient has not experienced similar symptoms in the past. Reports has had cold/congestion, stopped up nose, drinking through straw and couldn't breath at same time as drinking through straw because of congestion, began to panic, called 911, met them outside, hyperventilating, given albuterol and oxygen for comfort, normal vitals, symptoms have resolved, feels fine, smiling.. Historical: - Allergies: 08:24 Iodine; ph - PMHx: 08:24 Diabetes - NIDDM; Schizophrenia; ph - PSHx: 08:24 ; ph - Immunization history:: Adult Immunizations unknown. - Social history:: Smoking status: Patient/guardian denies using tobacco. - Family history:: not pertinent. - Ebola Screening: : No symptoms or risks identified at this time. - Hospitalizations: : No recent hospitalization is reported. ROS: 08:17 Constitutional: Negative for fever, chills, and weight loss, Eyes: Negative for injury, rn pain, redness, and discharge, Neck: Negative for injury, pain, and swelling, Cardiovascular: Negative for chest pain, palpitations, and edema, Respiratory: + sob Abdomen/GI: Negative for abdominal pain, nausea, vomiting, diarrhea, and constipation, MS/Extremity: Negative for injury and deformity, Skin: Negative for injury, rash, and discoloration, Neuro: Negative for headache, weakness, numbness, tingling, and seizure. Exam: 08:17 Constitutional: This is a well developed, well nourished patient who is awake, alert, rn and in no acute distress. Head/Face: Normocephalic, atraumatic. Eyes: Pupils equal round and reactive to light, extra-ocular motions intact. Lids and lashes normal. Conjunctiva and sclera are non-icteric and not injected. Cornea within normal limits. Periorbital areas with no swelling, redness, or edema. ENT: No stridor, MMM, no oral swelling, + nasal congestion, no sinus tenderness Neck: Trachea midline, no thyromegaly or masses palpated, and no cervical lymphadenopathy. Supple, full range of motion without nuchal rigidity, or vertebral point tenderness. No Meningismus. Cardiovascular: Regular rate and rhythm with a normal S1 and S2. No gallops, murmurs, or rubs. Normal PMI, no JVD. No pulse deficits. Respiratory: Lungs have equal breath sounds bilaterally, clear to auscultation and percussion. No rales, rhonchi or wheezes noted. No increased work of breathing, no retractions or nasal flaring. Abdomen/GI: Soft, non-tender, with normal bowel sounds. No distension or tympany. No guarding or rebound. No evidence of tenderness throughout. MS/ Extremity: Pulses equal, no cyanosis. Neurovascular intact. Full, normal range of motion. Equal circumference. Neuro: Awake and alert, GCS 15, oriented to person, place, time, and situation. Cranial nerves II-XII grossly intact. Motor strength 5/5 in all extremities. Sensory grossly intact. Cerebellar exam normal. Normal gait. Vital Signs: 08:21 BP 128 / 66; Pulse 84; Resp 20; Temp 97.5; Pulse Ox 99% on R/A; Weight 65.77 kg; Height ph 5 ft. 6 in. (167.64 cm); Pain 0/10; 09:26 BP 118 / 64; Pulse 78; Resp 16; Pulse Ox 98% on R/A; ph 10:21 BP 122 / 68; Pulse 80; Resp 18; Temp 97.8; Pulse Ox 99% on R/A; ph 08:21 Body Mass Index 23.40 (65.77 kg, 167.64 cm) ph MDM: 08:15 Patient medically screened. rn 10:06 Differential diagnosis: anxiety, viral infection, URI, panic attack. Data reviewed: rn vital signs, nurses notes, lab test result(s). 10:08 Counseling: I had a detailed discussion with the patient and/or guardian regarding: the rn historical points, exam findings, and any diagnostic results supporting the discharge/admit diagnosis, lab results, radiology results, the need for outpatient follow up, to return to the emergency department if symptoms worsen or persist or if there are any questions or concerns that arise at home. Response to treatment: the patient's symptoms have resolved after treatment, the patient's condition has returned to base line, the patient is now symptom free, and as a result, I will discharge patient. Special discussion: I discussed with the patient/guardian in detail that at this point there is no indication for admission to the hospital. It is understood, however, that if the symptoms persist or worsen the patient needs to return immediately for re-evaluation. 05/03 08:17 Order name: CBC with Diff; Complete Time: 10:02 rn 05/03 08:17 Order name: Basic Metabolic Panel; Complete Time: 10:02 rn 05/03 08:17 Order name: IV Start; Complete Time: 10:16 rn 05/03 08:17 Order name: Troponin (emerg Dept Use Only); Complete Time: 10:02 rn 05/03 08:17 Order name: EKG; Complete Time: 08:17 rn 05/03 08:17 Order name: XRAY Chest (1 view); Complete Time: 10:02 rn 05/03 08:17 Order name: EKG - Nurse/Tech; Complete Time: 08:56 rn Administered Medications: No medications were administered Disposition: 05/03/18 10:09 Discharged to Home. Impression: Panic disorder [episodic paroxysmal anxiety] without agoraphobia, Anxiety disorder, unspecified, Acute upper respiratory infection, unspecified. - Condition is Stable. - Discharge Instructions: Panic Attacks, Viral Respiratory Infection. - Prescriptions for Zithromax Z- Juancarlos 250 mg Oral Tablet - take 1 tablet by ORAL route as directed for 5 days Day 1 - take two (2) tablets one time. Day 2, 3, 4 , 5 take one (1) tablet once daily.; 6 tablet. - Medication Reconciliation Form, Thank You Letter, Antibiotic Education, Prescription Opioid Use form. - Follow up: Private Physician; When: As needed; Reason: Recheck today's complaints, Re-evaluation by your physician. - Problem is new. - Symptoms are resolved. Signatures: Dispatcher [employer] EDAldair Mcgowan MD MD rn Hall, Patricia, RN RN ph Corrections: (The following items were deleted from the chart) 10:22 10:09 05/03/2018 10:09 Discharged to Home. Impression: Panic disorder [episodic ph paroxysmal anxiety] without agoraphobia; Anxiety disorder, unspecified; Acute upper respiratory infection, unspecified. Condition is Stable. Forms are Medication Reconciliation Form, Thank You Letter, Antibiotic Education, Prescription Opioid Use. Follow up: Private Physician; When: As needed; Reason: Recheck today's complaints, Re-evaluation by your physician. Problem is new. Symptoms are resolved. rn
--- NOTE | 2018-05-04 10:23 | EKG ---
Test Date: 2018-05-03 Test Time: 10:12:18 Geospatial Information Technologist: tech user MEASUREMENT RESULTS: Intervals: Rate: 87 DE: 118 QRSD: 94 QT: 350 QTc: 421 [place]: P: 41 DE: 118 QRS: -17 T: 52 INTERPRETIVE STATEMENTS: Normal sinus rhythm Minimal voltage criteria for LVH, may be normal variant Septal infarct, age undetermined Abnormal ECG Compared to ECG 08/14/2017 03:38:28 Left ventricular hypertrophy now present Myocardial infarct finding now present Electronically Signed On 05-04-18 10:21:35 CDT by Arben Meng
== END 2018-05-03 10:22 | disposition home or self-care (01) ==
LOC: ER 08:13
DX: F41.0 Panic disorder [episodic paroxysmal anxiety] (principal); J06.9 Acute upper respiratory infection, unspecified; F41.8 Other specified anxiety disorders; Z91.09 Other allergy status, other than to drugs and biological substances
CPT/HCPCS: 36415; 71045; 80048; 84484; 85025; 93005; 99284

== ENCOUNTER 2018-05-20 02:43 | Emergency (ER) | payer OTHER ==
--- OUTSIDE RECORDS SUMMARY | 2018-05-20 02:46 | XMS REPORT | Clinical Summary ---
:1960 Author Organization [facility] Address [address] [place] [address] Care Team Providers Name Role Phone Jordy [...] morning for 30 disorder, depressive days. type ([facility]) glimepiride (AMARYL) Take 0.5 15 tablet 0 08/27/2017 1 MG tablets (0.5 8 tabletIndications: mg total) by Type 2 diabetes mouth daily mellitus without with breakfast complication, for 30 days. without long-term current use of insulin ([facility]) atorvastatin Take 1 tablet 30 tablet 0 08/26/2017 (LIPITOR) 10 MG (10 mg total) 8 tabletIndications: by mouth Type 2 diabetes nightly for 30 mellitus without days. complication, without long-term current use of insulin ([facility]) losartan (COZAAR) 25 Take 1 tablet 30 [...] for 30 Schizoaffective days. disorder, depressive type ([facility]) haloperidol (HALDOL) Take 1 tablet 30 tablet 0 08/26/2017 10 MG (10 mg total) 8 tabletIndications: by mouth Schizoaffective nightly for 30 disorder, depressive days. type ([facility]) haloperidol (HALDOL) Take 1 tablet 08/26/2017 2 [...] bone fracture 08/19/2017 Injury of cervical spine ([facility]) 08/19/2017 Head injury 08/17/2017 Schizophrenia ([facility]) 08/17/2017 Hyponatremia 08/17/2017 Increased anion gap metabolic acidosis 08/17/2017 Leucocytosis 08/17/2017 Weakness of both upper extremities 08/17/2017 Hypoalbuminemia 08/17/2017 Encounters Date Type Specialty Care Team Description 03/28/2018 Office Visit Orthopedic Surgery Kofi, Adhesive capsulitis Italo Meek MD of right shoulder (Primary Dx) 03/27/2018 Orders Only Orthopedic Surgery Brandon, Right shoulder pain, Nickarr unspecified chronicity (Primary [...] , initial encounter (Primary Dx); - Soco Santiago MD Fall, initial encounter; 08/26/2017 Luly Mandel Acute hyponatremia; MD Fantasma Intracranial bleed; Mai York Schizoaffective disorder, depressive type; MD Collette Type 2 diabetes mellitus without complication, without long-term current use of insulin; Hypertension, unspecified type; Hypothyroidism, unspecified type; Urge incontinence of urine; Schizophrenia, unspecified type 08/17/2017 Procedure Pass General Internal Medicine 08/17/2017 Procedure Pass General Internal Medicine after 05/19/2017 Immunizations Name Dates Previously Given Next Due [...] VACCINE 02/26/2018 08/26/2017 Implants Implanted Type Area Glove Stitcher Device Expiration Model / Identifier Date Serial / Lot 3mm Drill Shaft Accessories N/A: [employer] [id number] / Implanted: Qty: 1 on 12/03/2017 by Chris Cabrera MD N/A / Leverage Lfs 2.6mm X 8mm Lateral Mass Screw - [id number] IMPLANT N/A: [employer] SPINE [id number] / Implanted: Qty: 6 on 12/03/2017 by Chris Cabrera MD DEVICES N/A / Leverage Lfs 8mm Small Traditional Plate (M-L) - [id number] IMPLANT N/A: [employer] SPINE 07/09/2020 [id number] / Implanted: Qty: 1 on 12/03/2017 by Chris Cabrera MD DEVICES N/A / 1001 Leverage Lfs 8mm Large Laminar Plate (C-C) - [id number] IMPLANT N/A: [employer] SPINE 07/09/2020 [id number] / Implanted: Qty: 1 on 12/03/2017 by Chris Cabrera MD DEVICES N/A / 1001 Screw Spinal Lmnr 3x5mm Leverage Lfs - [id number] Spinal N/A: [employer] [id number] / Implanted: Qty: 1 on 12/03/2017 by Chris Cabrera MD Implants N/A / Screw Spinal Lmnr 2.6x5mm Leverage Lfs - [id number] Spinal N/A: [employer] [id number] / Implanted: Qty: 4 on 12/03/2017 by Chris Cabrera MD Implants N/A / Plate Spinal Trdtnl Sm 8mm Leverage Lfs - [id number] Spinal N/A: [employer] 07/09/2020 [id number] / Implanted: Qty: 3 on 12/03/2017 by Chris Cabrera MD Implants N/A / 1001 Procedures Procedure Name Priority Date/Time Associated Diagnosis Comments XR SHOULDER 2+ VW Routine 03/28/2018 10:04 Right shoulder pain, Results for this RIGHT AM CDT unspecified procedure are in chronicity the results section. OH ARTHROCENTESIS Routine 03/28/2018 10:00 Adhesive capsulitis Results [...] CDT procedure are in the results section. 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 OH CRITICAL CARE, E/M Routine 11/18/2017 6:42 Results [...] Routine 08/26/2017 4:59 Results for this PM [employer] procedure are in the results section. POC GLUCOSE Routine 08/26/2017 12:19 Results for this PM [employer] procedure are in the results section. POC GLUCOSE Routine 08/26/2017 8:30 Results for this AM [employer] procedure are in the results section. POC GLUCOSE Routine 08/26/2017 4:59 Results for this AM [employer] procedure are in the results section. HC COMPLETE BLD COUNT Routine 08/26/2017 4:50 Results for this W/AUTO DIFF AM [employer] procedure are in the results section. ZZESTIMATED GFR Routine 08/26/2017 4:00 Results for this AM [employer] procedure are in the results section. BASIC METABOLIC PANEL Routine 08/26/2017 4:00 Results for this AM [employer] procedure are in the results section. POC GLUCOSE Routine 08/26/2017 1:02 Results for this AM [employer] procedure are in the results section. POC GLUCOSE Routine 08/25/2017 9:24 Results for this PM [employer] procedure are in the results section. POC GLUCOSE Routine 08/25/2017 5:30 Results for this PM [employer] procedure are in the results section. POC GLUCOSE Routine 08/25/2017 12:24 Results for this PM [employer] procedure are in the results section. POC GLUCOSE Routine 08/25/2017 10:06 Results for this AM [employer] procedure are in the results section. POC GLUCOSE Routine 08/25/2017 8:38 Results for this AM [employer] procedure are in the results section. HC COMPLETE BLD COUNT Routine 08/25/2017 5:00 Results for this W/AUTO DIFF AM [employer] procedure are in the results section. ZZESTIMATED GFR Routine 08/25/2017 4:00 Results for this AM [employer] procedure are in the results section. BASIC METABOLIC PANEL Routine 08/25/2017 4:00 Results for this AM [employer] procedure are in the results section. POC GLUCOSE Routine 08/24/2017 7:02 Results for this PM [employer] procedure are in the results section. POC GLUCOSE Routine 08/24/2017 5:18 Results for this PM [employer] procedure are in the results section. POC GLUCOSE Routine 08/24/2017 11:41 Results for this AM [employer] procedure are in the results section. POC GLUCOSE Routine 08/24/2017 7:38 Results for this AM [employer] procedure are in the results section. ZZESTIMATED GFR Routine 08/24/2017 4:05 Results for this AM [employer] procedure are in the results section. HC COMPLETE BLD COUNT Routine 08/24/2017 4:05 Results for this W/AUTO DIFF AM [employer] procedure are in the results section. BASIC METABOLIC PANEL Routine 08/24/2017 4:05 Results for this AM [employer] procedure are in the results section. POC GLUCOSE Routine 08/23/2017 8:56 Results for this PM [employer] procedure are in the results section. POC GLUCOSE Routine 08/23/2017 5:37 Results for this PM [employer] procedure are in the results section. POC GLUCOSE Routine 08/23/2017 1:17 Results for this PM [employer] procedure are in the results section. POC GLUCOSE Routine 08/23/2017 9:37 Results for this AM [employer] procedure are in the results section. ZZESTIMATED GFR Routine 08/23/2017 5:13 Results for this AM [employer] procedure are in the results section. BASIC METABOLIC PANEL Routine 08/23/2017 5:13 Results for this AM [employer] procedure are in the results section. HC COMPLETE BLD COUNT Routine 08/23/2017 5:13 Results for this W/AUTO DIFF AM [employer] procedure are in the results section. POC GLUCOSE Routine 08/22/2017 8:24 Results for this PM [employer] procedure are in the results section. POC GLUCOSE Routine 08/22/2017 4:53 Results for this PM [employer] procedure are in the results section. POC GLUCOSE Routine 08/22/2017 12:57 Results for this PM [employer] procedure are in the results section. POC GLUCOSE Routine 08/22/2017 8:01 Results for this AM [employer] procedure are in the results section. POC GLUCOSE Routine 08/22/2017 6:05 Results for this AM [employer] procedure are in the results section. HC COMPLETE BLD COUNT Routine 08/22/2017 5:05 Results for this W/AUTO DIFF AM [employer] procedure are in the results section. ZZESTIMATED GFR Routine 08/22/2017 4:00 Results for this AM [employer] procedure are in the results section. BASIC METABOLIC PANEL Routine 08/22/2017 4:00 Results for this AM [employer] procedure are in the results section. POC GLUCOSE Routine 08/21/2017 8:57 Results for this PM [employer] procedure are in the results section. POC GLUCOSE Routine 08/21/2017 6:11 Results for this PM [employer] procedure are in the results section. POC GLUCOSE Routine 08/21/2017 1:29 Results for this PM [employer] procedure are in the results section. CT MAXILLOFACIAL WO Routine 08/21/2017 1:06 Results for this CONTRAST PM [employer] procedure are in the results section. POC GLUCOSE Routine 08/21/2017 8:13 Results for this AM [employer] procedure are in the results section. HC COMPLETE BLD COUNT Routine 08/21/2017 4:49 Results for this W/AUTO DIFF AM [employer] procedure are in the results section. ZZESTIMATED GFR Routine 08/21/2017 4:00 Results for this AM [employer] procedure are in the results section. BASIC METABOLIC PANEL Routine 08/21/2017 4:00 Results for this AM [employer] procedure are in the results section. POC GLUCOSE Routine 08/20/2017 9:59 Results for this PM [employer] procedure are in the results section. POC GLUCOSE Routine 08/20/2017 5:13 Results for this PM [employer] procedure are in the results section. POC GLUCOSE Routine 08/20/2017 11:33 Results for this AM [employer] procedure are in the results section. POC GLUCOSE Routine 08/20/2017 9:35 Results for this AM [employer] procedure are in the results section. HC COMPLETE BLD COUNT Routine 08/20/2017 4:25 Results for this W/AUTO DIFF AM [employer] procedure are in the results section. ZZESTIMATED GFR Routine 08/20/2017 4:00 Results for this AM [employer] procedure are in the results section. BASIC METABOLIC PANEL Routine 08/20/2017 4:00 Results for this AM [employer] procedure are in the results section. POC GLUCOSE Routine 08/19/2017 10:51 Results for this PM [employer] procedure are in the results section. XR CERVICAL SPINE 1 VW Routine 08/19/2017 8:58 Results for this PM [employer] procedure are in the results section. POC GLUCOSE Routine 08/19/2017 5:51 Results for this PM [employer] procedure are in the results section. OSMOLALITY, URINE Routine 08/19/2017 4:29 Results for this PM [employer] procedure are in the results section. CREATININE LEVEL, Routine 08/19/2017 4:29 Results for this URINE, RANDOM PM [employer] procedure are in the results section. SODIUM LEVEL, URINE, Routine 08/19/2017 4:29 Results for this RANDOM PM [employer] procedure are in the results section. POC GLUCOSE Routine 08/19/2017 12:15 Results for this PM [employer] procedure are in the results section. OH CRITICAL CARE, E/M Routine 08/19/2017 7:16 Results for this 30-74 MINUTES AM [employer] procedure are in the results section. HC COMPLETE BLD COUNT Routine 08/19/2017 4:58 Results for this W/AUTO DIFF AM [employer] procedure are in the results section. ZZESTIMATED GFR Routine 08/19/2017 4:00 Results for this AM [employer] procedure are in the results section. BASIC METABOLIC PANEL Routine 08/19/2017 4:00 Results for this AM [employer] procedure are in the results section. MRI CERVICAL SPINE WO STAT 08/18/2017 1:51 Results for this CONTRAST PM [employer] procedure are in the results section. MRI BRAIN WO CONTRAST Routine 08/18/2017 1:29 Results for this PM [employer] procedure are in the results section. HC COMPLETE BLD COUNT Routine 08/18/2017 4:55 Results for this W/AUTO DIFF AM [employer] procedure are in the results section. HEMOGLOBIN A1C Routine 08/18/2017 4:55 Results for this AM [employer] procedure are in the results section. ZZESTIMATED GFR Routine 08/18/2017 4:00 Results for this AM [employer] procedure are in the results section. THYROID STIMULATING Routine 08/18/2017 4:00 Results for this HORMONE AM [employer] procedure are in the results section. BASIC METABOLIC PANEL Routine 08/18/2017 4:00 Results for this AM [employer] procedure are in the results section. BLOOD CULTURE, AEROBIC Routine 08/18/2017 12:10 Results for this & ANAEROBIC AM [employer] procedure are in the results section. MAGNESIUM LEVEL STAT 08/18/2017 12:09 Results for this AM [employer] procedure are in the results section. PHOSPHORUS LEVEL STAT 08/18/2017 12:09 Results for this AM [employer] procedure are in the results section. LACTIC ACID LEVEL STAT 08/18/2017 12:09 Results for this AM [employer] procedure are in the results section. XR CHEST 1 VW PORTABLE STAT 08/17/2017 11:44 Results for this PM [employer] procedure are in the results section. URINALYSIS SCREEN AND Routine 08/17/2017 8:05 Results for this MICROSCOPY, WITH REFLEX PM [employer] procedure are in TO CULTURE the results section. URINE CULTURE Routine 08/17/2017 8:00 Results for this PM [employer] procedure are in the results section. BLOOD CULTURE, AEROBIC Routine 08/17/2017 6:25 Results for this & ANAEROBIC PM [employer] procedure are in the results section. XR SHOULDER 2+ VW LEFT STAT 08/17/2017 5:08 Results for this PM [employer] procedure are in the results section. XR SHOULDER 2+ VW RIGHT STAT 08/17/2017 5:07 Results for this PM [employer] procedure are in the results section. CT CERVICAL SPINE WO STAT 08/17/2017 3:35 Results for this CONTRAST PM [employer] procedure are in the results section. CT HEAD WO CONTRAST STAT 08/17/2017 3:30 Results for this PM [employer] procedure are in the results section. ZZESTIMATED GFR STAT 08/17/2017 1:20 Results for this PM [employer] procedure are in the results section. MAGNESIUM LEVEL STAT 08/17/2017 1:20 Results for this PM [employer] procedure are in the results section. PHOSPHORUS LEVEL STAT 08/17/2017 1:20 Results for this PM [employer] procedure are in the results section. COMPREHENSIVE METABOLIC STAT 08/17/2017 1:20 Results for this PANEL PM [employer] procedure are in the results section. HC COMPLETE BLD COUNT STAT 08/17/2017 1:20 Results for this W/AUTO DIFF PM [employer] procedure are in the results section. ECG 12-LEAD STAT 08/17/2017 12:01 Results for this PM [employer] procedure are in the results section. after 05/19/2017 Results XR Shoulder 2+ Vw Right (03/28/2018 [...] tissue calcifications are seen. 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 [facility]-[id number] Procedure Note Interface, Radiology Results Incoming - [...] acute abnormality identified in abdomen or pelvis. [id number] Performing Organization Address City/State/Zipcode Phone Number [facility] [address] [place] [address] [place] Gallbladder (03/19/2018 11:05 PM) Narrative Performed At Examination:US GALLBLADDER [facility] Clinical History: Cholelithiasis Comparison: None. Findings: Gallbladder ultrasound was performed. Gallstones are noted in the gallbladder. Gallbladder wall is not thickened. The common bile duct measures 0.5 cm The portal vein is patent. The technologist reported a positive sonographic Solo sign. IMPRESSION: 1. Cholelithiasis but without gallbladder wall thickening. The technologist reported a positive sonographic Solo sign. Cholecystitis cannot be excluded. [id number] Procedure Note Hm Interface, Radiology Results Incoming [...] sonographic Solo sign. Cholecystitis cannot be excluded. [id number] Performing Organization Address City/[facility]/Zipcode Phone Number [facility] [address] [place] [address] Estimated GFR (03/19/2018 8:38 PM)Only the most recent of17 resultswithin the time period is included. GFR Non Af Amer 64 mL/min/1.73 m2 [facility] DEPARTMENT OF PATHOLOGY AND GENOMIC MEDICINE GFR Af Amer 78 mL/min/1.73 m2 [facility] DEPARTMENT OF Comment: PATHOLOGY AND GENOMIC [...] specimen Performing Organization Address City/State/Zipcode Phone Number [facility] DEPARTMENT OF PATHOLOGY AND [address] [place] [id number] [facility] Troponin (03/19/2018 8:38 PM)Only the most recent of3 resultswithin the time period is included. Troponin <0.30 0.00 - 0.30 ng/mL [facility] DEPARTMENT OF PATHOLOGY Comment: AND GENOMIC MEDICINE 0.30 - 1.49 ng/mlMay indicate increased risk of acute coronary syndrome. >=1.5 ng/mlConsistent with acute myocardial infarction. The diagnostic value of a single normal or non-diagnostic result is questionable.Serial samples at 2-6 hour intervals are required to rule out acute myocardial injury. Specimen Plasma specimen Performing Organization Address City/State/Zipcode Phone Number [facility] DEPARTMENT OF PATHOLOGY AND [address] [place] [address] GENOMIC MEDICINE CBC with platelet and differential (03/19/2018 8:38 PM)Only the most recent of14 resultswithin the time period is included. WBC 11.00 4.50 - 11.00 k/uL [facility] DEPARTMENT OF PATHOLOGY AND GENOMIC MEDICINE RBC 3.35 (L) 4.20 - 5.50 m/uL [facility] DEPARTMENT OF PATHOLOGY AND GENOMIC MEDICINE HGB 8.5 (L) 12.0 - 16.0 g/dL [facility] DEPARTMENT OF PATHOLOGY AND GENOMIC MEDICINE HCT 26.9 (L) 37.0 - 47.0 % [facility] DEPARTMENT OF PATHOLOGY AND GENOMIC MEDICINE MCV 80.3 (L) 82.0 - 100.0 fL [facility] DEPARTMENT OF PATHOLOGY AND GENOMIC MEDICINE MCH 25.4 (L) 27.0 - 34.0 pg [facility] DEPARTMENT OF PATHOLOGY AND GENOMIC MEDICINE MCHC 31.6 31.0 - 37.0 g/dL [facility] DEPARTMENT OF PATHOLOGY AND GENOMIC MEDICINE RDW - SD 42.6 37.0 - 55.0 fL [facility] DEPARTMENT OF PATHOLOGY AND GENOMIC MEDICINE MPV 9.4 8.8 - 13.2 fL [facility] DEPARTMENT OF PATHOLOGY AND GENOMIC MEDICINE Platelet count 471 (H) 150 - 400 k/uL [facility] DEPARTMENT OF PATHOLOGY AND GENOMIC MEDICINE Nucleated RBC 0.00 /100 WBC [facility] DEPARTMENT OF PATHOLOGY AND GENOMIC MEDICINE Neutrophils 61.2 39.0 - 69.0 % [facility] DEPARTMENT OF PATHOLOGY AND GENOMIC MEDICINE Lymphocytes 26.3 25.0 - 45.0 % [facility] DEPARTMENT OF PATHOLOGY AND GENOMIC MEDICINE Monocytes 7.7 0.0 - 10.0 % [facility] DEPARTMENT OF PATHOLOGY AND GENOMIC MEDICINE Eosinophils 3.5 0.0 - 5.0 % [facility] DEPARTMENT OF PATHOLOGY AND GENOMIC MEDICINE Basophils 0.9 0.0 - 1.0 % [facility] DEPARTMENT OF PATHOLOGY AND GENOMIC MEDICINE Immature granulocytes 0.4Comment: 0.0 - 1.0 % [facility] DEPARTMENT OF "Immature PATHOLOGY AND GENOMIC granulocytes" MEDICINE (promyelocytes, myelocytes, metamyelocytes) Specimen Blood Performing Organization Address [facility] Phone Number [facility] DEPARTMENT OF PATHOLOGY AND [address] [place] [address] B natriuretic peptide (03/19/2018 8:38 PM)Only the most recent of2 resultswithin the time period is included. BNP 28 0 - 100 pg/mL [facility] DEPARTMENT OF PATHOLOGY AND GENOMIC MEDICINE Specimen Blood Performing Organization Address [facility] Phone Number [facility] DEPARTMENT OF PATHOLOGY AND [address] [place] [address] Lipase level (03/19/2018 8:38 PM) Lipase 64 (H) 13 - 60 U/L [facility] DEPARTMENT OF PATHOLOGY AND GENOMIC MEDICINE Specimen Plasma specimen Performing Organization Address [facility] Phone Number [facility] DEPARTMENT OF PATHOLOGY AND [address] [place] [address] Creatine kinase, total (CPK) (03/19/2018 8:38 PM)Only the most recent of2 resultswithin the time period is included. Creatine kinase 61 26 - 192 U/L [facility] DEPARTMENT OF PATHOLOGY AND GENOMIC MEDICINE Specimen Plasma specimen Performing Organization Address [facility] Phone Number [facility] DEPARTMENT OF PATHOLOGY AND [address] [place] [address] Comprehensive metabolic panel (03/19/2018 8:38 PM)Only the most recent of3 resultswithin the time period is included. Sodium 132 (L) 135 - 148 mEq/L [facility] DEPARTMENT OF PATHOLOGY AND GENOMIC MEDICINE Potassium 5.3 (H) 3.5 - 5.0 mEq/L [facility] DEPARTMENT OF PATHOLOGY AND GENOMIC MEDICINE Chloride 97 (L) 98 - 112 mEq/L [facility] DEPARTMENT OF PATHOLOGY AND GENOMIC MEDICINE CO2 21 (L) 24 - 31 mEq/L [facility] DEPARTMENT OF PATHOLOGY AND GENOMIC MEDICINE Anion gap 14@ANIO 7 - 15 mEq/L [facility] DEPARTMENT OF PATHOLOGY AND GENOMIC MEDICINE BUN 25 (H) 6 - 20 mg/dL [facility] DEPARTMENT OF PATHOLOGY AND GENOMIC MEDICINE Creatinine 0.9 0.5 - 0.9 mg/dL [facility] DEPARTMENT OF PATHOLOGY AND GENOMIC MEDICINE Glucose 201 (H) 65 - 99 mg/dL [facility] DEPARTMENT OF PATHOLOGY AND GENOMIC MEDICINE Calcium 9.5 8.3 - 10.2 mg/dL [facility] DEPARTMENT OF PATHOLOGY AND GENOMIC MEDICINE Protein 6.9 6.3 - 8.3 g/dL [facility] DEPARTMENT OF Comment: PATHOLOGY AND GENOMIC 4.6-7.0 g/dL MEDICINE 1 week 4.4-7.6 g/dL 7 months-1year5.1-7.3 g/dL 1-2 years5.6-7.5 g/dL >3 years6.0-8.0 g/dL 18-150 6.3-8.3 g/dL Albumin 3.6 3.5 - 5.0 g/dL [facility] DEPARTMENT OF PATHOLOGY AND GENOMIC MEDICINE A/G ratio 1.1 0.7 - 3.8 [facility] DEPARTMENT OF PATHOLOGY AND GENOMIC MEDICINE Alkaline phosphatase 82 35 - 104 U/L [facility] DEPARTMENT OF PATHOLOGY AND GENOMIC MEDICINE AST 14 10 - 35 U/L [facility] DEPARTMENT OF PATHOLOGY AND GENOMIC MEDICINE ALT 17 5 - 50 U/L [facility] DEPARTMENT OF PATHOLOGY AND GENOMIC MEDICINE Total bilirubin <0.2 0.0 - 1.2 mg/dL [facility] DEPARTMENT OF PATHOLOGY AND GENOMIC MEDICINE Specimen Plasma specimen Performing Organization Address City/State/Zipcode Phone Number [facility] DEPARTMENT OF PATHOLOGY AND [address] [place] [address] [facility] XR Cervical Spine 2 Or 3 Vw [...] soft tissue thickness is within normal limits. [id number] Procedure Note Interface, Radiology Results - 01/06/2018 [...] soft tissue thickness is within normal limits. [id number] Performing Organization Address [facility] Phone Number [facility] [address] [place] [address] XR Chest 1 Vw Portable (12/05/2017 8:18 AM)Only the most recent of3 resultswithin the time period is included. Narrative Performed At EXAMINATION: Portable chest x-ray [facility] CLINICAL HISTORY:Fever COMPARISON: Most recent available chest x-ray. The heart is normal in size. Mediastinum is within normal limits. There are degenerative changes in the shoulder joints. IMPRESSION: 1.Mild retrocardiac atelectasis/small focal consolidation. No pleural fluid. 2.No pneumothorax. [id number] Procedure Note Interface, Radiology Results Incoming - 12/05/2017 8:25 AM CDT EXAMINATION: Portable chest x-ray CLINICAL HISTORY: Fever COMPARISON: Most recent available chest x-ray. The heart is normal in size. Mediastinum is within normal limits. There are degenerative changes in the shoulder joints. IMPRESSION: 1. Mild retrocardiac atelectasis/small focal consolidation. No pleural fluid. 2. No pneumothorax. [id number] Performing Organization Address [facility] Phone Number [facility] [address] [place] [address] Urinalysis screen and microscopy, with reflex to culture (12/05/2017 4:26 AM) Only the most recent of4 resultswithin the time period is included. Specimen site Clean catch [facility] DEPARTMENT OF PATHOLOGY AND GENOMIC MEDICINE Color, UA Straw [facility] DEPARTMENT OF PATHOLOGY AND GENOMIC MEDICINE Appearance, UA Clear [facility] DEPARTMENT OF PATHOLOGY AND GENOMIC MEDICINE Specific gravity, UA 1.015 1.001 - 1.035 [facility] DEPARTMENT OF PATHOLOGY AND GENOMIC MEDICINE pH, UA 6.0 5.0 - 8.5 [facility] DEPARTMENT OF PATHOLOGY AND GENOMIC MEDICINE Protein, UA Negative Negative [facility] DEPARTMENT OF PATHOLOGY AND GENOMIC MEDICINE Glucose, UA Negative Negative [facility] DEPARTMENT OF PATHOLOGY AND GENOMIC MEDICINE Ketones, UA Negative Negative [facility] DEPARTMENT OF PATHOLOGY AND GENOMIC MEDICINE Bilirubin, UA Negative Negative [facility] DEPARTMENT OF PATHOLOGY AND GENOMIC MEDICINE Blood, UA Negative Negative [facility] DEPARTMENT OF PATHOLOGY AND GENOMIC MEDICINE Nitrite, UA Negative Negative [facility] DEPARTMENT OF PATHOLOGY AND GENOMIC MEDICINE Urobilinogen, UA <2.0 <2.0 [facility] DEPARTMENT OF PATHOLOGY AND GENOMIC MEDICINE Leukocyte esterase, UA Negative Negative [facility] DEPARTMENT OF PATHOLOGY AND GENOMIC MEDICINE Epithelial cells, UA 2 /HPF [facility] DEPARTMENT OF PATHOLOGY AND GENOMIC MEDICINE WBC, UA <1 0 - 4 /HPF [facility] DEPARTMENT OF PATHOLOGY AND GENOMIC MEDICINE RBC, UA 1 0 - 5 /HPF [facility] DEPARTMENT OF PATHOLOGY AND GENOMIC MEDICINE Bacteria, UA None seen None seen [facility] DEPARTMENT OF PATHOLOGY AND GENOMIC MEDICINE Yeast, UA None seen [facility] DEPARTMENT OF PATHOLOGY AND GENOMIC MEDICINE Yeast with pseudohyphae, UA None seen [facility] DEPARTMENT OF PATHOLOGY AND GENOMIC MEDICINE Hyaline casts, UA 3 /LPF [facility] DEPARTMENT OF PATHOLOGY AND GENOMIC MEDICINE Specimen Urine Performing Organization Address City/[facility] Phone Number [facility] DEPARTMENT OF PATHOLOGY AND [address] [place] [address] MEDICINE Urine culture (12/05/2017 4:26 AM)Only the most recent of4 resultswithin the time period is included. Urine culture SEE COMMENTComment: Bacteriuria [facility] DEPARTMENT OF PATHOLOGY screen negative. AND GENOMIC MEDICINE Performing Organization Address City/[facility]/Zipcode Phone Number [facility] DEPARTMENT OF PATHOLOGY AND [address] [place] [address] MEDICINE POC glucose (12/04/2017 11:49 AM)Only the most recent of44 resultswithin the time period is included. POC glucose 146 (H) 65 - 99 mg/dL [facility] DEPARTMENT OF PATHOLOGY AND Comment: GENOMIC MEDICINE No Action Needed [facility] Notified RN Meter ID: [id number] Studio Camera Operator: Say Salamanca Performing Organization Address City/[facility]/Zipcode Phone Number [facility] DEPARTMENT OF PATHOLOGY AND [address] [place] [address] Basic metabolic panel (12/04/2017)Only the most recent of14 resultswithin the time period is included. Sodium 142 135 - 148 mEq/L [facility] DEPARTMENT OF PATHOLOGY AND GENOMIC MEDICINE Potassium 4.5 3.5 - 5.0 mEq/L [facility] DEPARTMENT OF PATHOLOGY AND GENOMIC MEDICINE Chloride 106 98 - 112 mEq/L [facility] DEPARTMENT OF PATHOLOGY AND GENOMIC MEDICINE CO2 25 24 - 31 mEq/L [facility] DEPARTMENT OF PATHOLOGY AND GENOMIC MEDICINE Anion gap 11 7 - 15 mEq/L [facility] DEPARTMENT OF PATHOLOGY Comment: AND GENOMIC MEDICINE Starting from October , anion gap calculation no longer incorporates potassium. Please note the change. BUN 12 6 - 20 mg/dL [facility] DEPARTMENT OF PATHOLOGY AND GENOMIC MEDICINE Creatinine 0.8 0.5 - 0.9 mg/dL [facility] DEPARTMENT OF PATHOLOGY AND GENOMIC MEDICINE Glucose 83 65 - 99 mg/dL [facility] DEPARTMENT OF PATHOLOGY AND GENOMIC MEDICINE Calcium 9.4 8.3 - 10.2 mg/dL [facility] DEPARTMENT OF PATHOLOGY AND GENOMIC MEDICINE Specimen Plasma specimen Performing Organization Address City/[facility] Phone Number [facility] DEPARTMENT OF PATHOLOGY AND [address] [place] [phone] [facility] MEDICINE Surgical pathology request (12/03/2017 1:17 PM) [facility] DEPARTMENT OF PATHOLOGY AND GENOMIC MEDICINE Surgical pathology report See link below for PDF [facility] DEPARTMENT OF Lab Report PATHOLOGY AND GENOMIC MEDICINE Result status This is Final Report to [facility] DEPARTMENT OF [id number] PATHOLOGY AND GENOMIC MEDICINE Performing Organization Address [facility] Phone Number [facility] DEPARTMENT OF PATHOLOGY AND [address] [place] [address] [facility] [place] < 1 Hour (12/03/2017 10:20 AM) Narrative Performed At IMPRESSION: C-arm fluoroscopy under one hour was provided in the OR for [facility] the referring physician. A radiologist was not present during the procedure. Refer to the Operative report issued by the performing provider for procedure details. LOCATION: [facility] PROCEDURE:CERVICAL LAMINOPLASTY START:1009 FINISH:1020 FLUORO TIME:2.83 SEC DOSE:17.81 TECH: MA SCANS:1 O-ARM CASE Procedure Note Interface, Radiology Results Incoming - 12/03/2017 3:55 PM CDT IMPRESSION: C-arm fluoroscopy under one hour was provided in the OR for the referring physician. A radiologist was not present during the procedure. Refer to the Operative report issued by the performing provider for procedure details. LOCATION: [facility] PROCEDURE:CERVICAL LAMINOPLASTY START:1009 FINISH:1020 FLUORO TIME:2.83 SEC DOSE:17.81 TECH: MA SCANS:1 O-ARM CASE Performing Organization Address City/[facility]/Zipcode Phone Number [facility] [address] [place] [address] XR Cervical Spine 1 Vw (12/03/2017 8:30 [...] tip projecting over the C4 spinous process. [id number] Procedure Note Interface, Radiology Results Incoming - 12/03/2017 8:36 AM CDT EXAMINATION: XR CERVICAL SPINE 1 VW CLINICAL HISTORY: Intraoperative study COMPARISON: Cervical radiographs 11/13/2017 IMPRESSION: Single lateral intraoperative radiograph of the cervical spine demonstrates posterior approach surgical instruments centered at the C4 and C5 levels with the superior-most surgical instrument tip projecting over the C4 spinous process. [id number] Performing Organization Address [facility] Phone Number [facility] [address] [place] [address] Type and screen (12/03/2017 6:50 AM)Only the most recent of2 resultswithin the time period is included. ABO grouping A [facility] DEPARTMENT OF PATHOLOGY AND GENOMIC MEDICINE Rh type POS [facility] DEPARTMENT OF PATHOLOGY AND GENOMIC MEDICINE Antibody screen (gel) NEG [facility] DEPARTMENT OF PATHOLOGY AND GENOMIC MEDICINE Specimen Blood Performing Organization Address [facility] Phone Number [facility] DEPARTMENT OF PATHOLOGY AND [address] [place] [address] [facility] Parathyroid hormone (12/03/2017 6:50 AM) PTH 29 15 - 65 pg/mL [facility] DEPARTMENT OF PATHOLOGY AND GENOMIC MEDICINE Specimen Blood Performing Organization Address City/[facility]/Zipcode Phone Number [facility] DEPARTMENT OF PATHOLOGY AND [address] [place] [address] [facility] Ionized calcium (11/19/2017 4:00 AM) pH 7.44 [facility] DEPARTMENT OF PATHOLOGY AND GENOMIC MEDICINE Ionized calcium 1.17 1.11 - 1.32 mmol/L [facility] DEPARTMENT OF PATHOLOGY AND GENOMIC MEDICINE Specimen Plasma specimen Performing Organization Address City/[facility]/Zipcode Phone Number [facility] DEPARTMENT OF PATHOLOGY AND [address] [place] [address] GENOMIC MEDICINE Consult to Sepsis Response Team [...] Respiratory pathogen Positive for Parainfluenza 3 virus [facility] DEPARTMENT OF panel PATHOLOGY AND GENOMIC [...] Specimen Nares - Right Performing Organization Address City/State/[facility] Phone Number [facility] DEPARTMENT OF PATHOLOGY AND [address] [place] [address] [facility] Beta hydroxybutyrate (11/18/2017 11:39 AM) Beta hydroxybutyrate 0.31 (H) 0.02 - 0.27 mmol/L [facility] DEPARTMENT OF PATHOLOGY AND GENOMIC MEDICINE Specimen Serum Performing Organization Address City/[facility] Phone Number [facility] DEPARTMENT OF PATHOLOGY AND [address] [place] [address] Vitamin B1 level, whole blood (11/18/2017 11:39 AM) Vitamin B1 90 70 - 180 nmol/L [email or web address] Comment: INTERPRETIVE INFORMATION: Vitamin B1, Whole Blood This assay measures the concentration of thiamine diphosphate (TDP), the primary active form of vitamin B1. Approximately 90 percent of vitamin B1 present in whole blood is TDP. Thiamine and thiamine monophosphate, which comprise the remaining 10 percent, are not measured. Test developed and characteristics determined by [employer]. See Compliance Statement B: [email or web address] Performed by [employer], [address] [place] [id number] [email or web address], Gray Patricio MD - Lab. Director Specimen Plasma specimen Performing Organization Address City/State/Zipcode Phone Number [facility] [address] [place] [address] Vitamin D 25 hydroxy level (11/18/2017 11:39 AM)Only the most recent of2 resultswithin the time period is included. Vitamin D, 25-hydroxy 27.1 (L) 30.0 - 150.0 [facility] DEPARTMENT OF Comment: ng/mL PATHOLOGY AND [...] alternative methods. Specimen Blood Performing Organization Address [facility] Phone Number [facility] DEPARTMENT OF PATHOLOGY AND [address] [place] [address] GENOMIC MEDICINE HIV 1, 2 antibody (11/18/2017 11:39 AM) HIV 1, 2 antibody Non-reactive Non-reactive [facility] DEPARTMENT OF Comment: PATHOLOGY AND GENOMIC Starting from October 25 2015, 4th generation HIV screening MEDICINE and confirmation assays are in use at [facility], consistent with the CDC-recommended algorithm. [...] on the testing algorithm, please refer to: http://stacks.cdc.gov/view/cdc/20418. Specimen Blood Performing Organization Address City/State/Zipcode Phone Number [facility] DEPARTMENT OF PATHOLOGY AND [address] [place] [address] Folate level (11/18/2017 11:39 AM) Folate >20.0 4.8 - 24.2 ng/mL [facility] DEPARTMENT OF PATHOLOGY AND GENOMIC MEDICINE Specimen Serum Performing Organization Address [facility] Phone Number [facility] DEPARTMENT OF PATHOLOGY AND [address] [place] [address] Vitamin B12 level (11/18/2017 11:39 AM) Vitamin B12 545 211 - 946 pg/mL [facility] DEPARTMENT OF PATHOLOGY Comment: AND [facility] Significant overlap exists between normal and deficiency states. However, most patients with deficiencies will have Serum B12 <200 pg/mL. Specimen Serum Performing Organization Address [facility] Phone Number [facility] DEPARTMENT OF PATHOLOGY AND [address] [place] [address] Lactic acid level, SEPSIS - Now and repeat 2x every 3 hours (11/18/2017 10:09 AM )Only the most recent of2 resultswithin the time period is included. Lactic acid 0.8 0.5 - 2.2 mmol/L [facility] DEPARTMENT OF PATHOLOGY AND GENOMIC MEDICINE Specimen Blood Performing Organization Address [facility] Phone Number [facility] DEPARTMENT OF PATHOLOGY AND [address] [place] [address] Arterial blood gas (11/18/2017 10:09 AM) pH, arterial 7.42 7.35 - 7.45 [facility] DEPARTMENT OF PATHOLOGY AND GENOMIC MEDICINE pCO2, arterial 29 (L) 35 - 45 mmHg [facility] DEPARTMENT OF PATHOLOGY AND GENOMIC MEDICINE pO2, arterial 118 (H) 80 - 90 mmHg [facility] DEPARTMENT OF PATHOLOGY AND GENOMIC MEDICINE Bicarbonate, arterial 18.2 (L) 21.0 - 28.0 mmol/L [facility] DEPARTMENT OF PATHOLOGY AND GENOMIC MEDICINE Base excess, arterial -5 (L) -2 - 2 mEq/L [facility] DEPARTMENT OF PATHOLOGY AND GENOMIC MEDICINE O2 saturation, arterial 99 95 - 100 % [facility] DEPARTMENT OF PATHOLOGY AND GENOMIC MEDICINE Specimen Blood Performing Organization Address [facility] Phone Number [facility] DEPARTMENT OF PATHOLOGY AND [address] [place] [address] CT Head Wo Contrast (11/18/2017 9:26 AM)Only [...] clear. IMPRESSION: No acute intracranial abnormality identified. [facility]-[id number] Procedure Note [facility], Radiology Results Incoming - 11/18/2017 9:32 AM [...] clear. IMPRESSION: No acute intracranial abnormality identified. [id number] Performing Organization Address City/State/Zipcode Phone Number [facility] [address] [place] [address] XR Abdomen 1 Vw (11/18/2017 8:54 AM) Narrative Performed At EXAMINATION:XR ABDOMEN 1 VW HM [facility] CLINICAL HISTORY:abdominal distention COMPARISON:None. FINDINGS: There is diffuse increase in the amount of gas and feces throughout the colon. There is no free air. No abnormal calcifications are noted. IMPRESSION: As above [id number] Procedure Note Interface, Radiology Results Incoming - 11/18/2017 8:58 AM CDT EXAMINATION: XR ABDOMEN 1 VW CLINICAL HISTORY: abdominal distention COMPARISON: None. FINDINGS: There is diffuse increase in the amount of gas and feces throughout the colon. There is no free air. No abnormal calcifications are noted. IMPRESSION: As above [id number] Performing Organization Address City/[facility]/Zipcode Phone Number [facility] [address] [place] [address] Urine drugs of abuse screen (11/18/2017 8:26 AM) Amphetamine screen, urine Negative [facility] DEPARTMENT OF PATHOLOGY AND GENOMIC MEDICINE Barbiturate screen, urine Negative [facility] DEPARTMENT OF PATHOLOGY AND GENOMIC MEDICINE Benzodiazepine screen, Negative [facility] DEPARTMENT OF urine PATHOLOGY AND GENOMIC MEDICINE Cannabinoid screen, urine Negative [facility] DEPARTMENT OF PATHOLOGY AND GENOMIC MEDICINE Cocaine screen, urine Negative [facility] DEPARTMENT OF PATHOLOGY AND GENOMIC MEDICINE Methadone metabolite Negative [facility] DEPARTMENT OF (EDDP), urine PATHOLOGY AND GENOMIC MEDICINE Opiates screen, urine Negative [facility] DEPARTMENT OF PATHOLOGY AND GENOMIC MEDICINE Oxycodone screen, urine Negative [facility] DEPARTMENT OF PATHOLOGY AND GENOMIC MEDICINE Phencyclidine screen, urine Negative [facility] DEPARTMENT OF PATHOLOGY AND GENOMIC MEDICINE Tricyclic screen, urine Negative [facility] DEPARTMENT OF Comment: PATHOLOGY AND GENOMIC Drug screen minimum concentration of detectability MEDICINE Wccuyqkgrjfx0643 ng/mL Barbiturates 200 ng/mL Xahlljuqqoqkteh354 ng/mL Jrwofou717 ng/mL Cqhmolvhz619 ng/mL Oatebsz734 ng/mL Uxcezsgky399 ng/mL Phencyclidine 25 ng/mL Nigaitmkczbd56 ng/mL Cqakgxhbvh0774 ng/mL Negative test results indicates presumptive evidence of lack of clinically significant drug concentration in this urine specimen. Positive test results are presumptive evidence of clinically significant drug concentration in this urine specimen. Testing performed for medical purposes only. Specimen Urine Performing Organization Address [facility] Phone Number [facility] DEPARTMENT OF PATHOLOGY AND [address] [place] [address] GENOMIC MEDICINE Gram stain (11/18/2017 8:26 AM)Only the most recent of2 resultswithin the time period is included. Gram stain result Occasional WBC's [facility] DEPARTMENT OF PATHOLOGY Many Gram negative rods AND GENOMIC MEDICINE Comment: Specimen Information Specimen Source: Urine Specimen Site: Clean catch Specimen Urine Performing Organization Address [facility] Phone Number [facility] DEPARTMENT [place] [address] [facility] MEDICINE Blood culture, aerobic & anaerobic (11/18/2017 8:06 AM)Only the most recent of4 resultswithin the time period is included. Blood culture isolate No growth after 5 days of incubation. [facility] DEPARTMENT OF Comment: PATHOLOGY AND GENOMIC Specimen Information MEDICINE Specimen Source: Blood Specimen Site: Peripheral Forearm Left Specimen Blood - Antecubital, right Performing Organization Address [facility] Phone Number [facility] DEPARTMENT OF PATHOLOGY AND [address] [place] [address] [facility] CRITICAL CARE (11/18/2017 6:42 AM) Narrative Performed At Zohaib Landeros MD 11/22/20177:41 AM Critical Care Performed by: [...] included. PTT 32.5 23.0 - 36.0 sec [facility] DEPARTMENT OF PATHOLOGY Comment: AND [facility] PTT therapeutic range for unfractionated heparin is 61.0-112.0 seconds which corresponds to Anti-Xa 0.3-0.7 U/ml. Specimen Blood Performing Organization Address [facility] Phone Number [facility] DEPARTMENT OF PATHOLOGY AND [address] [place] [address] [facility] Sedimentation rate (11/18/2017 6:32 AM) Sedimentation rate SEE COMMENT 0 - 20 mm/hr [facility] DEPARTMENT OF PATHOLOGY Comment: AND [facility] Footnote--------- Unable to perform testing, specimen is SPUN DOWN.Recollect requested for ESR2 (tests)._MS. ARGUETA/CHARGE NURSE QUIN (name/location) notified by [facility]_ (tech ID) at11/18/201713:25__ (date/time). Credit issued. Performing Organization Address City/[facility]/Zipcode Phone Number [facility] DEPARTMENT OF PATHOLOGY AND [address] [place] [address] Prothrombin time with INR (11/18/2017 6:32 AM)Only the most recent of2 resultswithin the time period is included. Prothrombin time 15.1 (H) 12.0 - 15.0 sec [facility] DEPARTMENT OF PATHOLOGY AND [facility] INR 1.2 [facility] DEPARTMENT OF Comment: PATHOLOGY AND GENOMIC The International Normalized Ratio (INR) is a therapeutic MEDICINE monitoring tool for patients who are stable on oral anticoagulant therapy. An INR of 2.0-3.0 is suggested for deep vein thrombosis/pulmonary embolism. Specimen Blood Performing Organization Address City/[facility] Phone Number [facility] DEPARTMENT OF PATHOLOGY AND [address] [place] [address] C-reactive protein (11/18/2017 6:32 AM) CRP 2.48 (H) 0.00 - 0.50 mg/dL [facility] DEPARTMENT OF PATHOLOGY AND [facility] Specimen Blood Performing Organization Address City/[facility] Phone Number [facility] DEPARTMENT OF PATHOLOGY AND [address] [place] [address] Thyroid stimulating hormone (11/18/2017 6:32 AM)Only the most recent of2 resultswithin the time period is included. TSH 2.60 0.27 - 4.20 uIU/mL [facility] DEPARTMENT OF PATHOLOGY AND [facility] Specimen Blood Performing Organization Address City/[facility] Phone Number [facility] DEPARTMENT OF PATHOLOGY AND [address] [place] [address] T4, free (11/18/2017 6:32 AM) T4, free 1.7 0.9 - 1.7 ng/dL [facility] DEPARTMENT OF PATHOLOGY AND GENOMIC MEDICINE Specimen Blood Performing Organization Address [facility] Phone Number [facility] DEPARTMENT OF PATHOLOGY AND [address] [place] [address] Hemoglobin A1c (11/18/2017 6:32 AM)Only the most recent of3 resultswithin the time period is included. Hemoglobin A1C 6.2 (H) 4.0 - 5.6 % [facility] DEPARTMENT OF PATHOLOGY Comment: [facility] HbA1c cutoffs for diagnosing diabetes: 4.0% - 5.6%=normal 5.7% - 6.4%=increased risk for diabetes (prediabetes) >=6.5%=diabetes Goals for glycemic control (ADA 2016) < 7.0%Target for non adults with diabetes. More or less stringent targets may be appropriate for individual patients. <7.5% Target for Children and adolescents with type 1 diabetes. Performing Organization Address City/[facility] Phone Number [facility] DEPARTMENT OF PATHOLOGY AND [address] [place] [phone] [place] [address] Alcohol level, blood (11/18/2017 6:32 AM) Alcohol None Detected mg/dL [facility] DEPARTMENT OF PATHOLOGY Comment: AND GENOMIC MEDICINE Normal None Detected Legal Intoxication in [place]80 mg/dL (0.08%) - Whole Blood Toxic [id number] mg/dL (0.2%) Potentially Juynb181 - 500 mg/dL (0.35 - 0.5%) Alcohol percent None Detected % [facility] DEPARTMENT OF PATHOLOGY AND GENOMIC MEDICINE Specimen Blood Performing Organization Address [facility] Phone Number [facility] DEPARTMENT OF PATHOLOGY AND [address] [place] [phone] [facility] Acetaminophen level (11/18/2017 6:32 AM) Acetaminophen level <15.0 10.0 - 30.0 ug/mL [facility] DEPARTMENT OF Comment: PATHOLOGY AND GENOMIC Therapeutic 10-30 ug/mL MEDICINE Possible Toxicity 150-200 ug/mL Probable Toxicity >200 ug/mL Specimen Blood Performing Organization Address [facility] Phone Number [facility] DEPARTMENT OF PATHOLOGY AND [address] [place] [phone] [facility] Salicylate level (11/18/2017 6:32 AM) Salicylate <3.0 3.0 - 30.0 mg/dL [facility] DEPARTMENT OF PATHOLOGY AND GENOMIC MEDICINE Specimen Blood Performing Organization Address [facility] Phone Number [facility] DEPARTMENT OF PATHOLOGY AND [address] [place] [phone] GENOMIC MEDICINE XR Chest 2 Vw (11/13/2017 1:31 PM) Narrative Performed At Examination: XR CHEST 2 VW RAD[facility]ANNER Clinical history: Z01.818 Encounter for other preprocedural examination, preop Comparison: August 17 Impression: 1. The heart and pulmonary vasculature are within normal limits. 2. No infiltrate or effusion is demonstrated. 3. There is no acute osseous pathology. CONCLUSION: NO RADIOGRAPHIC EVIDENCE OF ACUTE CARDIOPULMONARY ABNORMALITY. [facility]-[id number] Procedure Note Hm Interface, Radiology Results Incoming - 11/13/2017 1:57 PM CDT Examination: XR CHEST 2 VW Clinical history: Z01.818 Encounter for other preprocedural examination, preop Comparison: August 17 Impression: 1. The heart and pulmonary vasculature are within normal limits. 2. No infiltrate or effusion is demonstrated. 3. There is no acute osseous pathology. CONCLUSION: NO RADIOGRAPHIC EVIDENCE OF ACUTE CARDIOPULMONARY ABNORMALITY. [facility]-[id number] Performing Organization Address [facility] Phone Number [facility] [address] [place] [phone] AST (SGOT) (11/13/2017 11:50 AM) AST 22 10 - 35 U/L [facility] DEPARTMENT OF PATHOLOGY AND GENOMIC MEDICINE Specimen Plasma specimen Performing Organization Address [facility] Phone Number [facility] DEPARTMENT OF PATHOLOGY AND [address] [place] [phone] [facility] Potassium level (11/13/2017 11:50 AM) Potassium 5.2 (H) 3.5 - 5.0 mEq/L [facility] DEPARTMENT OF PATHOLOGY Comment: AND [facility] Preferred specimen is heparinized blood.Test was run on serum. Serum K may be 0.1 - 0.7 mEq/L higher than herparinized blood K. Specimen Plasma specimen Performing Organization Address [facility] Phone Number [facility] DEPARTMENT OF PATHOLOGY AND [address] [place] [phone] [facility] Bilirubin direct (11/13/2017 11:50 AM) Bilirubin direct <0.2 0.0 - 0.3 mg/dL [facility] DEPARTMENT OF PATHOLOGY AND GENOMIC MEDICINE Specimen Plasma specimen Performing Organization Address [facility] Phone Number [facility] DEPARTMENT OF PATHOLOGY AND [address] [place] [phone] [facility] ECG Pre/Post Op (11/13/2017 11:33 AM) Ventricular rate 94 [facility]USE Atrial rate 94 [facility] OH interval 142 [facility] QRSD interval 86 [facility] QT interval 368 [facility] QTC interval 460 [facility] P axis 1 64 [facility] M[facility] QRS axis 1 -35 [facility] MUSE T wave axis 56 [facility] EKG impression Normal sinus rhythm-Possible Left atrial enlargement-Left axis deviation-Left ventricular hypertrophy-Abnormal ECG-In automated comparison with ECG of 17-AUG-2017 12:01,-Criteria for Septal infarct are [facility] MUSE no longer present- Performing Organization Address City/[facility] Phone Number [facility] MUSE [address] [place] [phone] Phosphorus level (11/13/2017 11:27 AM)Only the most recent of3 resultswithin the time period is included. Phosphorus 4.1 2.4 - 4.5 mg/dL [facility] DEPARTMENT OF PATHOLOGY AND GENOMIC MEDICINE Specimen Plasma specimen Performing Organization Address [facility] Phone Number [facility] DEPARTMENT OF PATHOLOGY AND [address] [place] [phone] GENOMIC MEDICINE Magnesium level (11/13/2017 11:27 AM)Only the most recent of3 resultswithin the time period is included. Magnesium 1.6 1.6 - 2.6 mg/dL [facility] DEPARTMENT OF PATHOLOGY AND GENOMIC MEDICINE Specimen Plasma specimen Performing Organization Address [facility] Phone Number [facility] DEPARTMENT OF PATHOLOGY AND [address] [place] [phone] [facility] Hepatic function panel (11/13/2017 11:27 AM) Albumin 3.6 3.5 - 5.0 g/dL [facility] DEPARTMENT OF PATHOLOGY AND GENOMIC MEDICINE Total bilirubin 0.3 0.0 - 1.2 mg/dL [facility] DEPARTMENT OF PATHOLOGY AND GENOMIC MEDICINE Bilirubin direct SEE COMMENTComment: 0.0 - 0.3 mg/dL [facility] DEPARTMENT OF Footnote--------- PATHOLOGY AND GENOMIC MEDICINE Alkaline phosphatase 74 35 - 104 U/L [facility] DEPARTMENT OF PATHOLOGY AND GENOMIC MEDICINE Protein 6.8 6.3 - 8.3 g/dL [facility] DEPARTMENT OF Comment: PATHOLOGY AND GENOMIC [place] 4.6-7.0 g/dL MEDICINE 1 week 4.4-7.6 g/dL 7 months-1year5.1-7.3 g/dL 1-2 years5.6-7.5 g/dL >3 years6.0-8.0 g/dL 18-150 6.3-8.3 g/dL ALT 20 5 - 50 U/L [facility] DEPARTMENT OF PATHOLOGY AND GENOMIC MEDICINE AST SEE COMMENTComment: 10 - 35 U/L [facility] DEPARTMENT OF Footnote--------- PATHOLOGY AND GENOMIC MEDICINE Specimen Plasma specimen Performing Organization Address [facility] Phone Number [facility] DEPARTMENT OF PATHOLOGY AND [address] [place] [address] GENOMIC MEDICINE XR Cervical Spine Ap Lateral [...] C5-6. No abnormal motion on flexion-extension views. [facility]-[id number] Procedure Note Interface, Radiology Results Incoming - [...] C5-6. No abnormal motion on flexion-extension views. [facility]-[id number] Performing Organization Address [facility] Phone Number [facility] [address] [place] [address] CT Maxillofacial Wo Contrast (08/21/2017 1:06 PM) [...] by Dr Can at 08/21/2017 1:37 PM. [facility]-[id number] Procedure Note [facility], Radiology Results Incoming - 08/21/2017 1:48 PM CRM MARKETING SPECIALIST EXAMINATION: CT MAXILLOFACIAL WO CONTRAST CLINICAL HISTORY: [...] Dr Can at 08/21/2017 1: 37 PM. [facility]-[id number] Performing Organization Address [facility] Phone Number [facility] [address] [place] [address] Sodium level, urine, random (08/19/2017 4:29 PM) Sodium, urine, random 109 mEq/L [facility] DEPARTMENT OF PATHOLOGY AND GENOMIC MEDICINE Specimen Urine Performing Organization Address City/[facility] Phone Number [facility] DEPARTMENT OF PATHOLOGY AND [address] [place] [phone] GENOMIC MEDICINE Osmolality, urine (08/19/2017 4:29 PM) Osmolality, urine 350 50 - 1,400 mOsm/kg [facility] DEPARTMENT OF PATHOLOGY AND GENOMIC MEDICINE Specimen Urine Performing Organization Address [facility] Phone Number [facility] DEPARTMENT OF PATHOLOGY AND [address] [place] [address] [facility] Creatinine level, urine, random (08/19/2017 4:29 PM) Creatinine, urine, random 29 mg/dL [facility] DEPARTMENT OF PATHOLOGY AND GENOMIC MEDICINE Specimen Urine Performing Organization Address City/State/Zipcode Phone Number [facility] DEPARTMENT OF PATHOLOGY AND [address] [place] [address] GENOMIC MEDICINE CRITICAL CARE (08/19/2017 7:16 AM) [...] indentation at several other levels as described. [facility]-[id number] Procedure Note Hm Interface, Radiology Results Incoming - 08/18/2017 2:28 PM CRM MARKETING SPECIALIST EXAMINATION: MRI CERVICAL SPINE WO CONTRAST CLINICAL [...] indentation at several other levels as described. [facility]-[id number] Performing Organization Address City/State/Zipcode Phone Number [facility] [address] [place] [address] MRI Brain Wo Contrast (08/18/2017 1:29 PM) Narrative Performed At EXAMINATION: MRI BRAIN WO CONTRAST [facility] CLINICAL HISTORY: evaluate for any intracranial bleed [...] any mass effect on the adjacent brain. [facility]-[id number] Procedure Note Interface, Radiology Results Incoming - 08/18/2017 2:10 PM CRM MARKETING SPECIALIST EXAMINATION: MRI BRAIN WO CONTRAST CLINICAL HISTORY: [...] any mass effect on the adjacent brain. [facility]-[id number] Performing Organization Address [facility]/Zipcode Phone Number [facility] [address] [place] [address] Lactic acid level (08/18/2017 12:09 AM) Lactic acid 1.6 0.5 - 2.2 mmol/L [facility] DEPARTMENT OF PATHOLOGY AND GENOMIC MEDICINE Specimen Blood Performing Organization Address [facility] Phone Number [facility] DEPARTMENT OF PATHOLOGY AND [address] [place] [address] GENOMIC MEDICINE XR Shoulder 2+ Vw Left (08/17/2017 5:08 PM) Narrative Performed At EXAMINATION:XR SHOULDER 2VW LEFT [facility] CLINICAL HISTORY:Pain post trauma COMPARISON:None. IMPRESSION: Bones are well-mineralized. No evidence of left shoulder fracture or dislocation.AC joint alignment is maintained. [facility]-[id number] Procedure Note Interface, Radiology Results Incoming - 08/17/2017 5:16 PM CRM MARKETING SPECIALIST EXAMINATION: XR SHOULDER 2 VW LEFT CLINICAL HISTORY: Pain post trauma COMPARISON: None. IMPRESSION: Bones are well-mineralized. No evidence of left shoulder fracture or dislocation. AC joint alignment is maintained. [facility]-[id number] Performing Organization Address [facility] Phone Number [facility] [address] [place] [address] CT Cervical Spine Wo Contrast (08/17/2017 3:35 [...] myelopathy. No acute fracture or prevertebral hematoma. [facility]-[id number] Procedure Note [facility], Radiology Results Incoming - 08/17/2017 4:44 PM CRM MARKETING SPECIALIST EXAMINATION: CT CERVICAL SPINE WO CONTRAST CLINICAL [...] myelopathy. No acute fracture or prevertebral hematoma. [facility]-[id number] Performing Organization Address City/State/Zipcode Phone Number [facility] [address] [place] [address] after 05/19/2017 Insurance Payer Benefit Plan / Group Subscriber ID Type Phone Address [facility] OPEN ACCESS/NETWORK xxxxxxxxxxx O Home: [address] [phone] [address]
[2018-05-20] MEDS ORDERED: ACT CHARCOAL/SORB 50 GM/240ML ONE (03:06)
[2018-05-20 03:38] LABS: Absolute Lymphocytes (CBC) 2.5 K/uL (0.7-4.9); Absolute Monocytes 0.8 K/uL (0.1-1.3); Absolute Neutrophil 5.3 K/uL (1.8-8.0); Basophils % 1.3 % (0-1.3); Eosinophils % 5.8 % (0-4.4); Hematocrit 28.9 % (36.0-45.0); Lymphocytes % 27.1 % (15.3-44.8); MCH 25.9 pg (27.0-35.0); MPV 7.9 fL (7.6-11.3); Monocytes % 8.2 % (3.3-12.3)
[2018-05-20 03:40] LABS: Protime INR 0.9
[2018-05-20 03:56] LABS: ALT/SGPT 20 U/L (12-78); AST/SGOT 12 U/L (15-37); Albumin 3.6 g/dL (3.4-5.0); Alkaline Phosphatase 100 U/L (45-117); BUN Blood Urea Nitrogen 30 mg/dL (7-18); Bicarbonate 22 mmol/L (21-32); Bilirubin Direct < 0.1 mg/dL (0-0.2); Bilirubin Total 0.2 mg/dL (0.2-1.0); Glucose Level 203 mg/dL (74-106); Potassium 4.8 mmol/L (3.5-5.1); Protein, Total 7.2 g/dL (6.4-8.2); Sodium Level 136 mmol/L (136-145)
[2018-05-20] MEDS ORDERED: NA CHLORIDE 0.9% 1,000 ML ONE (04:37)
[2018-05-20 05:50] LABS: Barbiturates NEGATIVE (NEGATIVE); Benzodiazepines NEGATIVE (NEGATIVE); Cocaine NEGATIVE (NEGATIVE); METHAMPHETAM NEGATIVE (NEGATIVE); Methadone NEGATIVE (NEGATIVE); Opiates NEGATIVE (NEGATIVE); Phencyclidine NEGATIVE (NEGATIVE); THC Cannibis NEGATIVE (NEGATIVE)
[2018-05-20 05:56] LABS: Urine Blood NEGATIVE (NEG); Urine Glucose NEGATIVE (NEG); Urine Protein NEGATIVE (NEG); Urine Specific Gravity 1.015 (1.005-1.030); Urine pH 6.5 (5.0-7.0)
[2018-05-20] MEDS ORDERED: MAGNESIUM CITRATE 300 ML BOT ONE (10:58)
--- NOTE | 2018-05-20 12:11 | EKG ---
Test Date: 2018-05-20 Test Time: 03:05:58 Production Tester: ASHWIN MEASUREMENT RESULTS: Intervals: Rate: 88 [place]: 106 QRSD: 88 QT: 374 QTc: 452 [place]: P: 42 [place]: 106 QRS: -25 T: 36 INTERPRETIVE STATEMENTS: Sinus rhythm with short [place] Minimal voltage criteria for LVH, may be normal variant Junctional ST depression, probably abnormal Abnormal ECG Compared to ECG 05/03/2018 10:12:18 Short [place] interval now present ST (T wave) deviation now present Myocardial infarct finding no longer present Electronically Signed On 05-20-18 12:09:57 CDT by Arben Meng
--- NOTE | 2018-05-20 12:52 | ER ---
Nurse's Notes [facility] Name: Liz Martin Age: 57 yrs Sex: Female : 1960 Arrival Date: 05/20/2018 Time: 02:43 Bed 7 Private MD: Jordy Marin R Diagnosis: Acetaminophen Overdose;Intentional self harm;Psychiatric condition Presentation: 05/20 02:53 Presenting complaint: Patient states: she was worried about her dog because she was bb hearing voices saying they were going to kill her dog pt's states pt took " half a bottle of extra strength tylenol" at approx 0200. Transition of care: patient was not received from another setting of care. Onset of symptoms was May 20, 2018. Risk Assessment: Do you want to hurt yourself or someone else?. Initial Sepsis Screen: Does the patient meet any 2 criteria? No. Patient's initial sepsis screen is negative. Does the patient have a suspected source of infection? No. Patient's initial sepsis screen is negative. Care prior to arrival: None. 02:53 Method Of Arrival: Ambulatory bb 02:53 Acuity: YOHANNES 2 bb Historical: - Allergies: 03:00 Iodine; bb - Home Meds: 03:00 Cozaar 25 mg Oral tab 1 tab 2 times per day [Active]; Inderal LA 10 mg Oral 1 cap 2 bb times per day [Active]; levothyroxine 75 mcg oral tab 1 tab once daily [Active]; metformin 500 mg Oral tab 1 tab 2 times per day [Active]; Lamictal 100 mg Oral tab 1 tab 2 times per day [Active]; Cogentin Oral 0.5 mg twice a day [Active]; Zyprexa Oral [Active]; [place] Carbonate Oral [Active]; Nexium Oral [Active]; - PMHx: 03:00 Diabetes - NIDDM; Schizophrenia; bb - PSHx: 03:00 ; laminectomy; bb - Immunization history:: Adult Immunizations up to date. - Social history:: Smoking status: Patient/guardian denies using tobacco. - Ebola Screening: : No symptoms or risks identified at this time. Screenin:18 Abuse screen: Denies threats or abuse. Nutritional screening: No deficits noted. ea Tuberculosis screening: No symptoms or risk factors identified. Fall Risk None identified. Assessment: 03:17 General: Appears in no apparent distress. Behavior is cooperative, Pt denies wanting to ea hurt herself or others. Pain: Denies pain. Neuro: Level of Consciousness is awake, alert, obeys commands, Oriented to person, place, time, situation. Cardiovascular: Heart tones S1 S2 present Patient's skin is warm and dry. Respiratory: Airway is patent Respiratory effort is even, unlabored, Respiratory pattern is regular, symmetrical, Breath sounds are clear bilaterally. GI: Derm: Skin is pink, warm \\T\\ dry. 03:39 Reassessment: Patient appears in no apparent distress at this time. Patient and/or tl2 family updated on plan of care and expected duration. Pain level reassessed. Pt resting quietly. 04:24 Reassessment: Spoke with Cristy with Poison Control. Redraw Tylenol level at 0600 and tl2 consider administering acetadote if level is greater that 150. Draw lithium level, call back if greater than 3. 04:38 Reassessment: Patient appears in no apparent distress at this time. Patient and/or tl2 family updated on plan of care and expected duration. Pain level reassessed. 06:29 Reassessment: Patient appears in no apparent distress at this time. Patient and/or tl2 family updated on plan of care and expected duration. Pain level reassessed. Awaiting result for repeat Tylenol level. 06:40 Reassessment: Cristy with poison control called facility to follow up on acetaminophen ea level, notified of pending results. Cristy reported if Tylenol level was still in the 150's to treat with Mucomyst. Asked for follow up call with Tylenol level results, case #[id number] call poison control at [phone]. 07:05 Reassessment: Contacted Chris YOUNGBLOOD at poison control with Tylenol level, reports since ea patient is medically stable she is able to get a psych consult. 07:30 Reassessment: Pt laying in bed with eyes closed, respirations even and unlabored, no jl7 signs of distress noted at this time. Pt's asked for a cup of coffee, provided a cup of coffe. 08:00 Reassessment: Pt's states "I woke up around 0215 and she was agitated. She told jl7 me she was hearing voices that told her her dog was going to . She told me she took a bunch of Tylenol so I brought her in." He denies understanding of what exactly taking the Tylenol was going to do, that she had not voiced what she was trying to do. Pt is currently A\\T\\O4 and reports that she was trying to kill herself by taking the Tylenol but she no longer wants to do that or hurt anyone else. Room is secured, items removed and sitter is at bedside. Pt and updated on plan of care at this time. 09:20 Reassessment: [facility] at bedside. irineo Psych: 03:19 Subjective: Patient's mood is sad, Delusions are denied, Hallucinations are auditory. ea Objective: Patient is cooperative, Speech is normal, Affect is appropriate. Interventions: Patient placed in hospital gown. Suicide Risk Assessment: Sad Person Scale: Sex of patient: Female: Score 0 points. Age of patient: Score 0 point if patient falls outside of specified age parameters. Substance Abuse: Score 0 point if patient does not abuse alcohol or drugs. Rational Thinking: Score 1 point if patient is lacking rational thinking. Social Support: Score 0 if social support is present/available. Safety Checks:. Pt denies substance abuse. 13:11 Commitment: Patient will be a voluntary commitment. iw Overdose: 08:00 Patient took 500 mg Tylenol, approximately half a bottle. Overdose occurred irineo woke up at 0215 and she had already taken them. Vital Signs: 03:00 BP 125 / 75; Pulse 95; Resp 16 S; Pulse Ox 100% on R/A; Weight 65.77 kg (R); Height 5 bb ft. 6 in. (167.64 cm) (R); 03:38 BP 124 / 69; Pulse 89; Resp 18; Pulse Ox 99% on R/A; tl2 04:26 BP 115 / 63; Pulse 90; Resp 18; Pulse Ox 97% ; ea 04:38 BP 124 / 79; Pulse 92; Resp 14; Pulse Ox 98% on R/A; tl2 05:32 BP 125 / 72; Pulse 94; Resp 23; Pulse Ox 100% on R/A; tl2 06:29 BP 136 / 86; Pulse 98; Resp 15; Pulse Ox 100% on R/A; tl2 07:30 BP 130 / 81; Pulse 104; Resp 20 S; Pulse Ox 100% on R/A; jl7 08:14 BP 141 / 69; Pulse 99; Resp 15; Pulse Ox 99% on R/A; jb1 11:54 BP 147 / 71; Pulse 91; Resp 16; Pulse Ox 98% on R/A; jb1 03:00 Body Mass Index 23.40 (65.77 kg, 167.64 cm) bb ED Course: 02:43 Patient arrived in ED. am2 02:44 Jordy Marin MD is Private Physician. am2 02:50 Reza Cannon MD is Attending Physician. tw4 02:55 Triage completed. bb 03:00 Arm band placed on Patient placed in an exam room, on a stretcher, on pulse oximetry. bb Family accompanied patient. 03:16 Tonie Garcia, RN is Primary Nurse. ea 03:22 Patient has correct armband on for positive identification. Bed in low position. Call ea light in reach. Side rails up X2. 05:46 Urine Dipstick--Ancillary (enter results) Sent. ds4 05:46 Urine Dipstick-Ancillary Sent. ds4 05:47 Urine Drug Screen Sent. ds4 06:30 Acetaminophen: Draw \\T\\ 0600 Sent. tl2 08:13 Safety checks: Items removed: yes. Door open/sign placed on door: yes. Family/friend jb1 present: yes. Family/friends encouraged to stay with patient. Sitter present: Yes. 08:53 Safety checks: Items removed: yes. Door open/sign placed on door: yes. Family/friend jb1 present: yes. Family/friends encouraged to stay with patient. Sitter present: Yes. 09:23 Safety checks: Items removed: yes. Door open/sign placed on door: yes. Family/friend jb1 present: yes. Family/friends encouraged to stay with patient. Sitter present: Yes. 09:25 Primary Nurse role handed off by Tonie Garcia, FORD jl7 09:25 Martinez Rodriguez RN is Primary Nurse. jl7 10:00 Safety checks: Items removed: yes. Door open/sign placed on door: yes. Family/friend jb1 present: yes. Family/friends encouraged to stay with patient. Sitter present: Yes. 11:01 Safety checks: Items removed: yes. Door open/sign placed on door: yes. Family/friend jb1 present: yes. Family/friends encouraged to stay with patient. Sitter present: Yes. 11:28 Safety checks: Items removed: yes. Door open/sign placed on door: yes. Family/friend jb1 present: yes. Family/friends encouraged to stay with patient. Sitter present: Yes. 11:54 Safety checks: Items removed: yes. Door open/sign placed on door: yes. Family/friend jb1 present: yes. Family/friends encouraged to stay with patient. Sitter present: Yes. 12:25 Safety checks: Items removed: yes. Door open/sign placed on door: yes. Family/friend jb1 present: yes. Family/friends encouraged to stay with patient. Sitter present: Yes. 12:42 Safety checks: Items removed: yes. Door open/sign placed on door: yes. Family/friend jb1 present: yes. Family/friends encouraged to stay with patient. Sitter present: Yes. 13:11 No provider procedures requiring assistance completed. IV discontinued, intact, iw bleeding controlled, No redness/swelling at site. Pressure dressing applied. Administered Medications: 03:03 Drug: Charcoal Suspension 50 grams Route: PO; ea 03:30 Follow up: Response: No adverse reaction ea 04:41 Drug: NS 0.9% 1000 ml Route: IV; Rate: 125 ml/hr; Site: right antecubital; ea 10:58 Drug: Magnesium Citrate Liquid 300 ml Route: PO; jl7 Outcome: 12:51 ER care complete, transfer ordered by . ps1 13:10 Transferred by ground EMS [place]. Transfer form completed. Note: to [facility] iw 13:10 Condition: good 13:10 Discharge instructions given to patient, family, Instructed on the need for transfer, Demonstrated understanding of instructions. 13:11 Patient left the ED. iw Signatures: Jose Camp jb1 Abigail Sanders RN RN bb Katie Byrnes RN RN iw Lance Wallace ds4 Aida Portillo RN RN tl2 Martinez Rodriguez RN RN jl7 Susannah Gilman Elena, RN RN ea Devan Neil MD MD ps1 Reza Cannon MD MD tw4 Corrections: (The following items were deleted from the chart) 06:59 03:17 General: Appears in no apparent distress. Behavior is cooperative, ea ea
--- NOTE | 2018-05-20 12:53 | EDPHYS ---
Physician Documentation [facility] Name: Liz Martin Age: 57 yrs Sex: Female : 1960 Arrival Date: 05/20/2018 Time: 02:43 Bed 7 Private MD: Jordy Marin R ED Physician Reza Cannon HPI: 05/20 03:00 This 57 yrs old Female presents to ER via Ambulatory with complaints of tw4 Overdose. 03:00 The patient presents to the emergency department after a known overdose, that was tw4 intentional. Context: Method: the patient has a confirmed or suspected ingestion, of acetaminophen. Associated signs and symptoms: The patient has no apparent associated signs or symptoms. Severity of symptoms: At their worst the symptoms were mild in the emergency department the symptoms are unchanged. The patient has not experienced similar symptoms in the past. Historical: - Allergies: 03:00 Iodine; bb - Home Meds: 03:00 Cozaar 25 mg Oral tab 1 tab 2 times per day [Active]; Inderal LA 10 mg Oral 1 cap 2 bb times per day [Active]; levothyroxine 75 mcg oral tab 1 tab once daily [Active]; metformin 500 mg Oral tab 1 tab 2 times per day [Active]; Lamictal 100 mg Oral tab 1 tab 2 times per day [Active]; Cogentin Oral 0.5 mg twice a day [Active]; Zyprexa Oral [Active]; Elnora Carbonate Oral [Active]; Nexium Oral [Active]; - PMHx: 03:00 Diabetes - NIDDM; Schizophrenia; bb - PSHx: 03:00 ; laminectomy; bb - Immunization history:: Adult Immunizations up to date. - Social history:: Smoking status: Patient/guardian denies using tobacco. - Ebola Screening: : No symptoms or risks identified at this time. ROS: 03:00 Constitutional: Negative for fever, chills, and weight loss, Eyes: Negative for injury, tw4 pain, redness, and discharge, Cardiovascular: Negative for chest pain, palpitations, and edema, Respiratory: Negative for shortness of breath, cough, wheezing, and pleuritic chest pain, Abdomen/GI: Negative for abdominal pain, nausea, vomiting, diarrhea, and constipation, Back: Negative for injury and pain, Neuro: Negative for headache, weakness, numbness, tingling, and seizure. 03:00 Psych: Positive for auditory hallucinations, suicide gesture, suicidal ideation. Exam: 03:00 Constitutional: This is a well developed, well nourished patient who is awake, alert, tw4 and in no acute distress. Head/Face: Normocephalic, atraumatic. Chest/axilla: Normal chest wall appearance and motion. Nontender with no deformity. No lesions are appreciated. Cardiovascular: Regular rate and rhythm with a normal S1 and S2. No gallops, murmurs, or rubs. Normal PMI, no JVD. No pulse deficits. Respiratory: Lungs have equal breath sounds bilaterally, clear to auscultation and percussion. No rales, rhonchi or wheezes noted. No increased work of breathing, no retractions or nasal flaring. Abdomen/GI: Soft, non-tender, with normal bowel sounds. No distension or tympany. No guarding or rebound. No evidence of tenderness throughout. MS/ Extremity: Pulses equal, no cyanosis. Neurovascular intact. Full, normal range of motion. Neuro: Awake and alert, GCS 15, oriented to person, place, time, and situation. Cranial nerves II-XII grossly intact. Motor strength 5/5 in all extremities. Sensory grossly intact. Cerebellar exam normal. Normal gait. 03:00 Psych: Behavior/mood is aggressive, suicidal, Affect is animated, Oriented to person, place, Patient having thoughts of suicide. Judgement / Insight is impaired. Delusions/hallucinations are present and described as voices telling her to kill the dog. Vital Signs: 03:00 BP 125 / 75; Pulse 95; Resp 16 S; Pulse Ox 100% on R/A; Weight 65.77 kg (R); Height 5 bb ft. 6 in. (167.64 cm) (R); 03:38 BP 124 / 69; Pulse 89; Resp 18; Pulse Ox 99% on R/A; tl2 04:26 BP 115 / 63; Pulse 90; Resp 18; Pulse Ox 97% ; ea 04:38 BP 124 / 79; Pulse 92; Resp 14; Pulse Ox 98% on R/A; tl2 05:32 BP 125 / 72; Pulse 94; Resp 23; Pulse Ox 100% on R/A; tl2 06:29 BP 136 / 86; Pulse 98; Resp 15; Pulse Ox 100% on R/A; tl2 07:30 BP 130 / 81; Pulse 104; Resp 20 S; Pulse Ox 100% on R/A; jl7 08:14 BP 141 / 69; Pulse 99; Resp 15; Pulse Ox 99% on R/A; jb1 11:54 BP 147 / 71; Pulse 91; Resp 16; Pulse Ox 98% on R/A; jb1 03:00 Body Mass Index 23.40 (65.77 kg, 167.64 cm) bb MDM: 02:50 Patient medically screened. tw4 05:04 Differential diagnosis: Ingestion/exposure to tylenol polypharmacy, over medication, tw4 hypoglycemia. Data reviewed: vital signs, nurses notes. Test interpretation: by ED physician or midlevel provider: ECG. Counseling: I had a detailed discussion with the patient and/or guardian regarding: the historical points, exam findings, and any diagnostic results supporting the discharge/admit diagnosis. Other consultation: Poison control. 05/20 02:51 Order name: Acetaminophen; Complete Time: 10:48 tw4 05/20 02:51 Order name: Basic Metabolic Panel; Complete Time: 10:48 tw4 05/20 02:51 Order name: CBC with Diff; Complete Time: 10:48 tw4 05/20 02:51 Order name: ETOH Level; Complete Time: 10:48 tw4 05/20 02:51 Order name: Hepatic Function; Complete Time: 10:48 tw4 05/20 02:51 Order name: PT-INR; Complete Time: 10:48 tw4 05/20 02:51 Order name: Ptt, Activated; Complete Time: 10:48 tw4 05/20 02:51 Order name: Salicylate; Complete Time: 10:48 tw4 05/20 02:51 Order name: Urine Drug Screen; Complete Time: 10:48 tw4 05/20 04:09 Order name: Elnora; Complete Time: 10:48 ms 05/20 04:54 Order name: Acetaminophen: Draw \T\ 0600; Complete Time: 10:48 tl2 05/20 04:54 Order name: Urine Dipstick--Ancillary (enter results) ds4 05/20 04:55 Order name: Urine Dipstick-Ancillary; Complete Time: 10:48 EDMS 05/20 02:51 Order name: EKG; Complete Time: 03:15 tw4 05/20 02:51 Order name: EKG - Nurse/Tech; Complete Time: 03:07 4 05/20 02:51 Order name: IV Saline Lock; Complete Time: 02:56 05/20 02:51 Order name: Labs collected and sent; Complete Time: 02:56 05/20 02:51 Order name: Urine Dipstick-Ancillary (obtain specimen); Complete Time: 04:51 [facility] 05/20 08:16 Order name: Diet Regular; Complete Time: 08:16 [facility] 05/20 08:45 Order name: Diet Finger Food; Complete Time: 08:45 [facility] 05/20 12:08 Order name: Diet Finger Food; Complete Time: 12:08 bd Administered Medications: 03:03 Drug: Charcoal Suspension 50 grams Route: PO; ea 03:30 Follow up: Response: No adverse reaction ea 04:41 Drug: NS 0.9% 1000 ml Route: IV; Rate: 125 ml/hr; Site: right antecubital; ea 10:58 Drug: Magnesium Citrate Liquid 300 ml Route: PO; jl7 Disposition: 05/20/18 12:51 Transfer ordered to Psych Facility. Diagnosis are Acetaminophen Overdose, Intentional self harm, Psychiatric condition. - Reason for transfer: Higher level of care. - Accepting physician is chris. - Condition is Stable. - Problem is an acute exacerbation. - Symptoms have improved. Signatures: Dispatcher [employer] EDAbigail Pierce RN RN bb Katie Byrnes RN RN iw Leal, Jahala, RN RN jl7 Tonie Garcia RN RN ea Singer, Phillip, MD MD ps1 Reza Cannon MD MD tw4 Corrections: (The following items were deleted from the chart) 13:11 12:51 05/20/2018 12:51 Transfer ordered to Psych Facility. Diagnosis is Acetaminophen iw Overdose; Intentional self harm; Psychiatric condition. Reason for transfer: Higher level of care. Accepting physician is chris. Condition is Stable. Problem is an acute exacerbation. Symptoms have improved. ps1
== END 2018-05-20 13:11 ==
LOC: ER 02:43
DX: T39.1X2A Poisoning by 4-Aminophenol derivatives, intentional self-harm, initial encounter (principal); F99 Mental disorder, not otherwise specified; F20.9 Schizophrenia, unspecified; E11.9 Type 2 diabetes mellitus without complications; Z91.048 Other nonmedicinal substance allergy status
CPT/HCPCS: 36415; 80048; 80076; 80178; 80307; 80320; 80329; 81003; 85025; 85610; 85730; 93005; 99285; J7030